=== PATIENT | male | born 1935 | race Caucasian/White ===

== ENCOUNTER 2017-06-10 08:10 | Observation (INO) ==
--- NOTE | 2017-06-10 08:17 | Emergency Department Note ---
Disposition Clinical Impression: Fall, Generalized weakness, Hyperkalemia Disposition: Admitted As Inpatient Condition: Undetermined General Adult HPI - General Chief complaint: ED Chest Pain Stated complaint: Fall,LOCKE, CP Time Seen by Provider: 06/10/17 08:14 - Related Data Home Medications Medication Instructions Recorded Confirmed Allopurinol [Zyloprim] 100 mg PO QAM 09/26/15 06/10/17 Aspirin 81 mg PO QAM 09/26/15 06/10/17 Atorvastatin [Lipitor] 40 mg PO HS 01/09/17 06/10/17 Glimepiride [Amaryl] 4 mg PO DAILY 01/09/17 06/10/17 LevETIRAcetam [Keppra] 500 mg PO BID 01/09/17 06/10/17 Metoprolol [Lopressor] 25 mg PO BID 01/09/17 06/10/17 Citalopram [CeleXA] 20 mg PO DAILY 05/26/17 06/10/17 DULoxetine [Cymbalta] 30 mg PO DAILY 05/26/17 06/10/17 Gabapentin [Neurontin] 100 mg PO DAILY 05/26/17 06/10/17 Lisinopril [Zestril] 20 mg PO DAILY 05/26/17 06/10/17 risperiDONE [RisperDAL] 1 mg PO DAILY 05/26/17 06/10/17 Previous Rx's Medication Instructions Recorded Tamsulosin [Flomax] 0.4 mg PO DAILY #30 capsule 09/29/15 Allergies Allergy/AdvReac Type Severity Reaction Status Date / Time Sulfa (Sulfonamide Allergy Rash Verified 09/26/15 17:31 Antibiotics) morphine AdvReac Vomiting Verified 09/26/15 17:31 Past Medical History - Past Medical History Medical history: Reports: arthritis, atrial fibrillation, cancer, CHF, CVA, diabetes, hypertension, other Surgical history: Reports: cholecystectomy, knee replacement, orthopedic, other , prostatectomy, other Psychiatric history: Reports: no psych history - Social History Smoking Status: Never smoker Smokeless Tobacco Status: No Alcohol use: Reports: none Drug use: Reports: none Course Vital Signs Temperature 97.9 F 06/10/17 08:14 Pulse Rate 73 06/10/17 08:14 Respiratory Rate 18 06/10/17 08:14 Blood Pressure 133/95 06/10/17 08:14 O2 Sat by Pulse Oximetry 96 07/26/17 08:14 Temperature 97.8 F 06/10/17 15:46 Pulse Rate 86 06/10/17 15:46 Respiratory Rate 17 06/10/17 15:46 Blood Pressure 114/78 06/10/17 15:46 O2 Sat by Pulse Oximetry 94 06/10/17 15:46 Oxygen Delivery Oxygen Delivery Room Air Medical Decision Making - Lab Data Result diagrams: 06/10/17 08:33 06/10/17 17:04 Lab Results 06/10/17 06/10/17 06/10/17 Range/Units 08:03 08:33 08:33 WBC 13.0 H (4.3-11.1) K/mcL RBC 4.55 (4.19-5.50) M/mcL Hgb 13.5 (12.9-16.9) g/dL Hct 41.4 (37.5-50.1) % MCV 91.0 (83.0-100.0) fL MCH 29.7 (28.0-33.3) pg MCHC 32.6 (31.6-35.5) g/dL RDW 13.4 (11.5-14.5) % Plt Count 240 (140-400) K/mcL MPV 10.8 (9.4-12.4) fL Immature Gran % 0.2 (0-4) % Seg Neutrophils % 73.9 % Lymphocytes % 16.4 % Monocytes % 7.3 % Eosinophils % 1.9 % Basophils % 0.3 % Neutrophils # 9.6 H (1.6-8.9) K/mcL Lymphocytes # 2.1 (0.6-4.6) K/mcL Monocytes # 1.0 (0.0-1.3) K/mcL Eosinophils # 0.3 (0.0-0.6) K/mcL Basophils # 0.0 (0.0-0.2) K/mcL ESR 12 H (0-10) mm/hr Sodium 134 L (136-145) mEq/L Potassium 5.4 H (3.5-4.5) mEq/L Chloride 102 (98-109) mEq/L Carbon Dioxide 29 (19-29) mEq/L BUN 29 H (8-26) mg/dL Creatinine 1.61 H (0.72-1.25) mg/dL Est GFR ( Amer) 50 L (> 60) Est GFR (Non-Af Amer) 41 L (> 60) BUN/Creatinine Ratio 18 (6-26) Glucose 326 H (70-99) mg/dL Calculated Osmolality 296 (280-300) Uric Acid 5.8 (3.5-7.2) mg/dL Calcium 9.1 (8.6-10.8) mg/dL Total Bilirubin 0.7 (0.2-1.2) mg/dL AST 17 (5-34) Units/L ALT 21 (0-55) Units/L Alkaline Phosphatase 93 (38-126) Units/L Troponin I (0-0.03) ng/mL C-Reactive Protein 4 (Less than 5) mg/L Serum Total Protein 7.0 (6.0-8.3) g/dL Albumin 3.2 L (3.5-5.0) g/dL Globulin 3.8 H (2.4-3.5) g/dL Albumin/Globulin Ratio 0.8 L (1.1-2.2) Urine Color (Yellow) Urine Clarity (Clear) Urine pH (5.0-8.0) pH Units Ur Specific [place] (1.010-1.025) Urine Protein (Neg-Trace) mg/dL Urine Glucose (UA) (Normal) mg/dL Urine Ketones (Negative) mg/dL Urine Blood (Negative) Urine Nitrite (Negative) Urine Bilirubin (Negative) Urine Urobilinogen (Normal) mg/dL Ur Leukocyte Esterase (Negative) Urine Microscopic RBC (0-3) per hpf Urine Microscopic WBC (0-3) per hpf Ur Squamous Epith Cells (None-Few) per lpf Urine Bacteria (None-Few) per hpf Hyaline Casts (None-Few) per lpf Ur Culture Indicated? (NO) 06/10/17 06/10/17 Range/Units 08:33 09:08 WBC (4.3-11.1) K/mcL RBC (4.19-5.50) M/mcL Hgb (12.9-16.9) g/dL Hct (37.5-50.1) % MCV (83.0-100.0) fL MCH (28.0-33.3) pg MCHC (31.6-35.5) g/dL RDW (11.5-14.5) % Plt Count (140-400) K/mcL MPV (9.4-12.4) fL Immature Gran % (0-4) % Seg Neutrophils % % Lymphocytes % % Monocytes % % Eosinophils % % Basophils % % Neutrophils # (1.6-8.9) K/mcL Lymphocytes # (0.6-4.6) K/mcL Monocytes # (0.0-1.3) K/mcL Eosinophils # (0.0-0.6) K/mcL Basophils # (0.0-0.2) K/mcL ESR (0-10) mm/hr Sodium (136-145) mEq/L Potassium (3.5-4.5) mEq/L Chloride (98-109) mEq/L Carbon Dioxide (19-29) mEq/L BUN (8-26) mg/dL Creatinine (0.72-1.25) mg/dL Est GFR ( Amer) (> 60) Est GFR (Non-Af Amer) (> 60) BUN/Creatinine Ratio (6-26) Glucose (70-99) mg/dL Calculated Osmolality (280-300) Uric Acid (3.5-7.2) mg/dL Calcium (8.6-10.8) mg/dL Total Bilirubin (0.2-1.2) mg/dL AST (5-34) Units/L ALT (0-55) Units/L Alkaline Phosphatase (38-126) Units/L Troponin I 0.00 (0-0.03) ng/mL C-Reactive Protein (Less than 5) mg/L Serum Total Protein (6.0-8.3) g/dL Albumin (3.5-5.0) g/dL Globulin (2.4-3.5) g/dL Albumin/Globulin Ratio (1.1-2.2) Urine Color Yellow (Yellow) Urine Clarity Clear (Clear) Urine pH 5.0 (5.0-8.0) pH Units Ur Specific [place] 1.023 (1.010-1.025) Urine Protein 30 H (Neg-Trace) mg/dL Urine Glucose (UA) 250 H (Normal) mg/dL Urine Ketones Negative (Negative) mg/dL Urine Blood Negative (Negative) Urine Nitrite Negative (Negative) Urine Bilirubin Negative (Negative) Urine Urobilinogen Normal (Normal) mg/dL Ur Leukocyte Esterase Negative (Negative) Urine Microscopic RBC 5-15 H (0-3) per hpf Urine Microscopic WBC 0-3 (0-3) per hpf Ur Squamous Epith Cells Few (None-Few) per lpf Urine Bacteria None Seen (None-Few) per hpf Hyaline Casts None Seen (None-Few) per lpf Ur Culture Indicated? NO (NO) Attestation Statement - Attestation Attestation: I examined this patient and my medical decision-making was reviewed with the Resident Physician. I agree with the documented findings, disposition and treatment plan as described except to the extent set forth below. [id number] time provided Information obtained from the patient's spouse. He sustained a mechanical fall. He takes eliquis. 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
--- NOTE | 2017-06-10 08:23 | Emergency Department Note ---
Disposition Clinical Impression: Generalized weakness, Hyperkalemia Fall Qualifiers: Encounter type: initial encounter Qualified Code(s): W19.XXXA - Unspecified fall, initial encounter Disposition: Admitted As Inpatient Condition: Undetermined Referrals: Wilberto Beasley MD [Primary Care Provider] - Forms: ED Satisfaction Letter Time of Disposition: 09:37 Fall HPI - General Chief Complaint: ED Fall Stated Complaint: Fall,LOCKE, CP Time Seen by Provider: 06/10/17 08:14 Source: patient, family Mode of arrival: wheelchair Limitations: altered mental status Nursing Notes Reviewed: Yes Vital Signs Reviewed: Yes - History of Present Illness HPI Narrative: 82-year-old male with unknown medical history with the exception of previous history of atrial fibrillation on aquis, history of gout, history of dementia , arrives [facility] emergency department with concern for fall. The patient's states that she heard a side this morning at roughly 5 :30 the morning and found the patient on the ground attempting to use the bathroom. The patient was cleaned up and put back in bed. At that time the patient was at his baseline. The patient was taken to the kitchen where he ate breakfast without difficulty and then attempted to stand up more and fell. The patient had no LOC and did not strike his head according to the patient's . However the patient was not at his baseline after the second fall. The patient is able to answer some questions correctly and follow all commands correctly but does not exhibit his baseline behavior per the patient's . The patient has no complaints at this time but is unable to explain certain aspects of his medical history. The patient's is a very poor historian and unable to give most of his medical history. Patient recently discharged from rehabilitation facility as well as mental health facility for recent diagnosis of dementia. Pt Subjective Complaint: fall Onset (ago): Just [employer] Fall From: standing, wheelchair, out of bed Fall Witnessed: yes Place Fall Occurred: home Loss of Consciousness: none Prolonged Down Time?: no Context: unknown Severity: none Associated symptoms (after fall): Reports: confusion - Related Data Home Medications Medication Instructions Recorded Confirmed Allopurinol [Zyloprim] 100 mg PO QAM 09/26/15 05/26/17 Aspirin 81 mg PO QAM 09/26/15 05/26/17 Atorvastatin [Lipitor] 40 mg PO HS 01/09/17 05/26/17 Glimepiride [Amaryl] 4 mg PO DAILY 01/09/17 05/26/17 LevETIRAcetam [Keppra] 500 mg PO BID 01/09/17 05/26/17 Metoprolol [Lopressor] 25 mg PO BID 01/09/17 05/26/17 Apixaban [Eliquis] 2.5 mg PO BID 05/26/17 05/26/17 Citalopram [CeleXA] 20 mg PO DAILY 05/26/17 05/26/17 DULoxetine [Cymbalta] 30 mg PO DAILY 05/26/17 05/26/17 Gabapentin [Neurontin] 100 mg PO DAILY 05/26/17 05/26/17 Lisinopril [Zestril] 20 mg PO DAILY 05/26/17 05/26/17 risperiDONE [RisperDAL] 1 mg PO DAILY 05/26/17 05/26/17 Previous Rx's Medication Instructions Recorded Amlodipine [Norvasc] 10 mg PO QAM #90 tablet 09/29/15 Tamsulosin [Flomax] 0.4 mg PO DAILY #30 capsule 09/29/15 HYDROcodone/Acet 10/325 mg [[place] 1 tab PO Q6HR PRN #28 tab 05/26/17 10-325 mg] Allergies Allergy/AdvReac Type Severity Reaction Status Date / Time Sulfa (Sulfonamide Allergy Rash Verified 09/26/15 17:31 Antibiotics) morphine AdvReac Vomiting Verified 09/26/15 17:31 All systems ED: reviewed and negative except as stated. Constitutional: Denies: fever, chills, weakness, weight change Eyes: Denies: eye pain, eye discharge, vision change ENT ED: Denies: ear pain, throat pain, dental pain, hearing loss, epistaxis, congestion, dysphagia Cardiovascular: Denies: chest pain, palpitations, dyspnea on exertion, edema, syncope Respiratory: Denies: cough, dyspnea, wheezes, hemoptysis, stridor Gastrointestinal: Denies: abdominal pain, nausea, vomiting, diarrhea, constipation, hematemesis, melena, hematochezia Genitourinary: Denies: urgency, dysuria, frequency, hematuria Musculoskeletal: Denies: back pain, neck pain, arthralgia, myalgia Integumentary: Denies: rash, abrasion, lesions Neurological: Reports: headache, confusion. Denies: weakness, numbness, paresthesias, abnormal gait, vertigo Fall PMH - Past Medical History Medical history: Reports: arthritis, atrial fibrillation, cancer, CHF, CVA, diabetes, hypertension, other Reports: Other (Dementia) Surgical history: Reports: cholecystectomy, knee replacement, orthopedic, other , prostatectomy, other Psychiatric history: Reports: no psych history - Social History Smoking Status: Never smoker Alcohol use: Reports: none Drug use: Reports: none Physical Exam - General Limitations: altered mental status General appearance: alert, in no apparent distress - Head Head exam: atraumatic, normocephalic, normal inspection - Eye Eye exam: Present: normal appearance, PERRL, EOMI - Neck Neck exam: Present: normal inspection, full ROM, trachea midline - Chest Chest inspection: Present: normal inspection, symmetric chest wall rise - Respiratory Respiratory exam: Present: normal lung sounds bilaterally - Cardiovascular Cardiovascular exam: Present: regular rate, normal rhythm, normal heart sounds - Abdominal Exam Abdominal exam: Present: soft, Non-Tender. Absent: tenderness, distention, guarding, rebound, rigidity - Extremities Exam Extremities exam: Present: normal inspection, full ROM. Absent: tenderness, pedal edema - Neurological Exam Neurological exam: Present: alert, CN II-XII intact - Expanded Neurological Exam Patient oriented to: Present: person Speech: Present: expressive aphasia Cranial nerves: EOM function (II, III, IV, ): Normal, facial sensation (V): Normal, facial palsy (VII): Normal, gag reflex (IX): Normal, spinal accessory function (XI): Normal, tongue deviation (XII): Normal Motor strength - LUE: 4/5 Motor strength - RUE: 4/5 Motor strength - LLE: 4/5 Motor strength - RLE: 4/5 Sensory exam upper extremity: light touch: Normal Sensory exam lower extremity: light touch: Normal Coma Scale Eye Opening: Spontaneous Coma Scale Motor Response: Obeys Commands Coma Scale Verbal Response: Confused Coma Scale Total: 14 - Skin Skin exam: Present: warm, dry, intact, normal color Course - Reevaluation(s) Reevaluation #1: Patient has elevated potassium at 5.4. The patient does have an elevation in his creatinine as well. The patient's potassium has never been this high in the past. We will treat the patient for hyperkalemia to include albuterol and IV Lasix. The patient has no EKG changes consistent with hyperkalemia. We will elect not to give calcium at this time. We will likely admit the patient to the hospital for further care given the patient's multiple falls and weakness. Time: 09:12 Vital Signs Temperature 97.9 F 06/10/17 08:14 Pulse Rate 73 06/10/17 08:14 Respiratory Rate 18 06/10/17 08:14 Blood Pressure 133/95 06/10/17 08:14 O2 Sat by Pulse Oximetry 96 06/10/17 08:14 Temperature 97.9 F 06/10/17 08:14 Pulse Rate 77 06/10/17 09:09 Respiratory Rate 18 06/10/17 09:09 Blood Pressure 153/93 06/10/17 09:09 O2 Sat by Pulse Oximetry 96 06/10/17 09:09 Oxygen Delivery Oxygen Delivery Room Air Fall - MDM Narrative Medical decision making narrative: Patient's imaging demonstrates no acute findings. With the patient's hyperkalemia and symptomatic falls and weakness, we will admit the patient to the hospital for further care. Accepted by the hospitalist, Dr. Iqbal. - Medical Records Medical records reviewed: Yes I reviewed the patient's medical records. - Lab Data Lab results reviewed: Yes I reviewed the patient's lab results. Result diagrams: 06/10/17 08:33 06/10/17 08:33 Lab Results 06/10/17 06/10/17 06/10/17 Range/Units 08:33 08:33 08:33 WBC 13.0 H (4.3-11.1) K/mcL RBC 4.55 (4.19-5.50) M/mcL Hgb 13.5 (12.9-16.9) g/dL Hct 41.4 (37.5-50.1) % MCV 91.0 (83.0-100.0) fL MCH 29.7 (28.0-33.3) pg MCHC 32.6 (31.6-35.5) g/dL RDW 13.4 (11.5-14.5) % Plt Count 240 (140-400) K/mcL MPV 10.8 (9.4-12.4) fL Immature Gran % 0.2 (0-4) % Seg Neutrophils % 73.9 % Lymphocytes % 16.4 % Monocytes % 7.3 % Eosinophils % 1.9 % Basophils % 0.3 % Neutrophils # 9.6 H (1.6-8.9) K/mcL Lymphocytes # 2.1 (0.6-4.6) K/mcL Monocytes # 1.0 (0.0-1.3) K/mcL Eosinophils # 0.3 (0.0-0.6) K/mcL Basophils # 0.0 (0.0-0.2) K/mcL Sodium 134 L (136-145) mEq/L Potassium 5.4 H (3.5-4.5) mEq/L Chloride 102 (98-109) mEq/L Carbon Dioxide 29 (19-29) mEq/L BUN 29 H (8-26) mg/dL Creatinine 1.61 H (0.72-1.25) mg/dL Est GFR ( Amer) 50 L (> 60) Est GFR (Non-Af Amer) 41 L (> 60) BUN/Creatinine Ratio 18 (6-26) Glucose 326 H (70-99) mg/dL Calculated Osmolality 296 (280-300) Calcium 9.1 (8.6-10.8) mg/dL Total Bilirubin 0.7 (0.2-1.2) mg/dL AST 17 (5-34) Units/L ALT 21 (0-55) Units/L Alkaline Phosphatase 93 (38-126) Units/L Troponin I 0.00 (0-0.03) ng/mL Serum Total Protein 7.0 (6.0-8.3) g/dL Albumin 3.2 L (3.5-5.0) g/dL Globulin 3.8 H (2.4-3.5) g/dL Albumin/Globulin Ratio 0.8 L (1.1-2.2) Urine Color (Yellow) Urine Clarity (Clear) Urine pH (5.0-8.0) pH Units Ur Specific [place] (1.010-1.025) Urine Protein (Neg-Trace) mg/dL Urine Glucose (UA) (Normal) mg/dL Urine Ketones (Negative) mg/dL Urine Blood (Negative) Urine Nitrite (Negative) Urine Bilirubin (Negative) Urine Urobilinogen (Normal) mg/dL Ur Leukocyte Esterase (Negative) Urine Microscopic RBC (0-3) per hpf Urine Microscopic WBC (0-3) per hpf Ur Squamous Epith Cells (None-Few) per lpf Urine Bacteria (None-Few) per hpf Hyaline Casts (None-Few) per lpf Ur Culture Indicated? (NO) 06/10/17 Range/Units 09:08 WBC (4.3-11.1) K/mcL RBC (4.19-5.50) M/mcL Hgb (12.9-16.9) g/dL Hct (37.5-50.1) % MCV (83.0-100.0) fL MCH (28.0-33.3) pg MCHC (31.6-35.5) g/dL RDW (11.5-14.5) % Plt Count (140-400) K/mcL MPV (9.4-12.4) fL Immature Gran % (0-4) % Seg Neutrophils % % Lymphocytes % % Monocytes % % Eosinophils % % Basophils % % Neutrophils # (1.6-8.9) K/mcL Lymphocytes # (0.6-4.6) K/mcL Monocytes # (0.0-1.3) K/mcL Eosinophils # (0.0-0.6) K/mcL Basophils # (0.0-0.2) K/mcL Sodium (136-145) mEq/L Potassium (3.5-4.5) mEq/L Chloride (98-109) mEq/L Carbon Dioxide (19-29) mEq/L BUN (8-26) mg/dL Creatinine (0.72-1.25) mg/dL Est GFR ( Amer) (> 60) Est GFR (Non-Af Amer) (> 60) BUN/Creatinine Ratio (6-26) Glucose (70-99) mg/dL Calculated Osmolality (280-300) Calcium (8.6-10.8) mg/dL Total Bilirubin (0.2-1.2) mg/dL AST (5-34) Units/L ALT (0-55) Units/L Alkaline Phosphatase (38-126) Units/L Troponin I (0-0.03) ng/mL Serum Total Protein (6.0-8.3) g/dL Albumin (3.5-5.0) g/dL Globulin (2.4-3.5) g/dL Albumin/Globulin Ratio (1.1-2.2) Urine Color Yellow (Yellow) Urine Clarity Clear (Clear) Urine pH 5.0 (5.0-8.0) pH Units Ur Specific [place] 1.023 (1.010-1.025) Urine Protein 30 H (Neg-Trace) mg/dL Urine Glucose (UA) 250 H (Normal) mg/dL Urine Ketones Negative (Negative) mg/dL Urine Blood Negative (Negative) Urine Nitrite Negative (Negative) Urine Bilirubin Negative (Negative) Urine Urobilinogen Normal (Normal) mg/dL Ur Leukocyte Esterase Negative (Negative) Urine Microscopic RBC 5-15 H (0-3) per hpf Urine Microscopic WBC 0-3 (0-3) per hpf Ur Squamous Epith Cells Few (None-Few) per lpf Urine Bacteria None Seen (None-Few) per hpf Hyaline Casts None Seen (None-Few) per lpf Ur Culture Indicated? NO (NO) - Radiology Data Radiology results reviewed: Yes I reviewed the patient's radiology results. - EKG Data EKG attestation: Yes I reviewed and interpreted this EKG. EKG results narrative: Heart rate 70 bpm. QRS 101 ms. Normal axis. Atrial fibrillation. No ST elevation or ST depression noted. EKG similar appearance to previous EKG. EKG from 03/20/2017 summary appearance. No acute changes noted.
[2017-06-10 08:42] LABS: Basophils % 0.3 %; Eosinophils # 0.3 K/mcL (0.0-0.6); Eosinophils % 1.9 %; Hematocrit 41.4 % (37.5-50.1); Hemoglobin 13.5 g/dL (12.9-16.9); Immature Granulocytes % 0.2 % (0-4); Lymphocytes # 2.1 K/mcL (0.6-4.6); Lymphocytes % 16.4 %; Mean Corpuscular HGB Conc 32.6 g/dL (31.6-35.5); Mean Corpuscular Hemoglobin 29.7 pg (28.0-33.3); Mean Platelet Volume 10.8 fL (9.4-12.4); Monocytes % 7.3 %; Neutrophils # 9.6 K/mcL (1.6-8.9); Platelet Count 240 K/mcL (140-400); Red Blood Count 4.55 M/mcL (4.19-5.50); Red Cell Distribution Width 13.4 % (11.5-14.5); Segmented Neutrophils % 73.9 %
[2017-06-10 08:55] LABS: Albumin 3.2 g/dL (3.5-5.0); Albumin/Globulin Ratio 0.8 (1.1-2.2); Bilirubin,Total 0.7 mg/dL (0.2-1.2); Calcium 9.1 mg/dL (8.6-10.8); Globulin 3.8 g/dL (2.4-3.5); Potassium 5.4 mEq/L (3.5-4.5)
[2017-06-10] MEDS ORDERED: Albuterol Neb 1.25 MG/3 ML VIAL IH ONE (09:09)
[2017-06-10] MEDS ORDERED: Furosemide 40 MG/4 ML VIAL IVP ONE (09:09)
[2017-06-10 09:14] LABS: Bilirubin,Urine Negative (Negative); Blood,Urine Negative (Negative); Clarity,Urine Clear (Clear); Color,Urine Yellow (Yellow); Glucose,Urine (UA) 250 mg/dL (Normal); Ketones,Urine Negative (Negative); Leukocyte Esterase,Urine Negative (Negative); Nitrite,Urine Negative (Negative); Protein,Urine 30 mg/dL (Neg-Trace); Specific Gravity,Urine 1.023 (1.010-1.025); Urobilinogen,Urine Normal (Normal)
[2017-06-10] MEDS ORDERED: Albuterol 2.5 MG/3 ML NEBULIZER IH ONE (09:15)
[2017-06-10 09:17] LABS: Bacteria,Urine None Seen per hpf (None-Few); Hyaline Casts,Urine None Seen per lpf (None-Few); Squamous Epithelial Cell,Urine Few per lpf (None-Few); WBC,Urine 0-3 per hpf (0-3)
[2017-06-10] MEDS ORDERED: Albuterol 2.5 MG/3 ML NEBULIZER ONE (09:18)
[2017-06-10] MEDS ORDERED: *HR* LORazepam 2 MG/ML VIAL IVP ONE (09:41)
[2017-06-10] MEDS ORDERED: Naloxone 0.4 MG/ML INJ IVP PRN (10:05)
[2017-06-10] MEDS ORDERED: *HR* OxyCODONE Immed Rel 5 MG TABLET PO PRN (10:05)
[2017-06-10] MEDS ORDERED: Acetaminophen 325 MG TABLET PO PRN (10:05)
[2017-06-10] MEDS ORDERED: Ondansetron 4 MG/2 ML VIAL IVP PRN (10:05)
[2017-06-10] MEDS ORDERED: *HR* FentaNYL (PF) 100 MCG/2 ML VIAL IVP ONE (10:08)
[2017-06-10] MEDS ORDERED: D5% in Water 1,000 ML IVC PRN (10:12)
[2017-06-10] MEDS ORDERED: *HR* Dextrose 50 % in Water (Syg) 50 ML SYRINGE IVP PRN (10:12)
[2017-06-10] MEDS ORDERED: Dextrose Gel 15 GM PO PRN ×2 (10:12)
--- NOTE | 2017-06-10 10:18 | Internal Med History&Physical ---
Date of Encounter: 06/10/17 Time of Encounter: 10:15 Assessment and Plan (1) Fall Current visit: Yes Status: Acute Recurrent falls, consider possible orthostatic hypotension Check orthostatics, consider holding Cymbalta and Flomax as both can cause orthostatic hypotension Fall precautions, telemetry PTOT evaluation Omeprazole for GI prophylaxis and sequential compression devices for DVT prophylaxis. Patient will be admitted for observation. He is a DNR CC arrest DNI. Time spent on this admission 40 minutes. High risk for falling Qualifiers: Encounter type: initial encounter Qualified Code(s): W19.XXXA - Unspecified fall, initial encounter (2) Chronic kidney disease, stage III (moderate) Current visit: Yes Status: Acute Stable Consider holding lisinopril if his creatinine progresses Gentle hydration (3) Dementia Current visit: Yes Status: Acute Qualifiers: Dementia type: unspecified type Dementia behavioral disturbance: without behavioral disturbance Qualified Code(s): F03.90 - Unspecified dementia without behavioral disturbance (4) Generalized weakness Current visit: Yes Status: Acute (5) Hyperkalemia Current visit: Yes Status: Acute Consider calcium gluconate and Kayexalate if progressing Check potassium later this afternoon (6) 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) Current visit: No Status: Acute Qualifiers: Intracerebral hemorrhage etiology: traumatic Encounter type: subsequent encounter Laterality: left Loss of consciousness presence/duration: with LOC of unspecified duration Qualified Code(s): S06.359D - Traumatic hemorrhage of left cerebrum with loss of consciousness of unspecified duration, subsequent encounter (7) Diabetes mellitus type 2 with complications, uncontrolled Current visit: No Status: Acute Continue insulin sliding scale Qualifiers: Diabetes mellitus snf insulin use: without snf use Qualified Code(s): E11.8 - Type 2 diabetes mellitus with unspecified complications; E11.65 - Type 2 diabetes mellitus with hyperglycemia (8) Aphasia Current visit: Yes Status: Acute Secondary to hemorrhagic CVA Internal Medicine - H&P: HPI Chief complaint: recurrent falls and confusion Admitted From: Emergency Dept History of present illness: Mr. 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 The patient was brought to the emergency room after his found him earlier today at home around 5:30 AM on the floor after he fell possibly hitting his head. The patient has aphasia and is a very poor historian, apparently he fell again after trying to stand up the kitchen. He cannot tell whether she was dizzy or not. He is taking Cymbalta and Flomax which both can cause orthostatic hypotension. His potassium was found to be 5.4 white blood cell count 13, UA is normal although his says they have been having some urinary incontinence, no diarrhea or bowel incontinence. CAT scan of the head did not show any intracranial hemorrhage. Chest x-ray shows only cardiomegaly. The patient was given Lasix and albuterol at the emergency room the collateral bring down his potassium. Glucose is 326, he does not take insulin at home Past Med Surg Social Fam HX - Past Medical History Medical history: arthritis, atrial fibrillation (Apparently not on anticoagulation, used to take Eliquis ), cancer (Skin cancer ), CHF (Diastolic CHF), CVA (Hemorrhagic CVA in December 2016 with residual aphasia), diabetes, hypertension, other (BPH, gout, dementia, CAD, chronic kidney disease stage III , COPD, neuropathy) Psychiatric history: no psych history - Past Surgical History Surgical History: cholecystectomy, knee replacement, orthopedic, other, prostatectomy, other (Recent bilateral great toe surgery, TURP, knee surgery in the past) - Social History Smoking Status: Never smoker Smokeless Tobacco Status: No Alcohol use: none Drug use: none - Additional Family History Additional family history: According to prior records. Daughter with brain cancer. Father with peripheral vascular disease and diabetes, mother with peripheral vascular disease and diabetes as well Internal Medicine - H&P: Meds Allopurinol [Zyloprim] 100 mg PO QAM 09/26/15 [History] Aspirin 81 mg PO QAM 09/26/15 [History] Tamsulosin [Flomax] 0.4 mg PO DAILY #30 capsule 09/29/15 [Rx] Atorvastatin [Lipitor] 40 mg PO HS 01/09/17 [History] Glimepiride [Amaryl] 4 mg PO DAILY 01/09/17 [History] LevETIRAcetam [Keppra] 500 mg PO BID 01/09/17 [History] Metoprolol [Lopressor] 25 mg PO BID 01/09/17 [History] Citalopram [CeleXA] 20 mg PO DAILY 05/26/17 [History] DULoxetine [Cymbalta] 30 mg PO DAILY 05/26/17 [History] Gabapentin [Neurontin] 100 mg PO DAILY 05/26/17 [History] Lisinopril [Zestril] 20 mg PO DAILY 05/26/17 [History] risperiDONE [RisperDAL] 1 mg PO DAILY 05/26/17 [History] Allergies Sulfa (Sulfonamide Antibiotics) Allergy (Verified 09/26/15 17:31) Rash morphine Adverse Reaction (Verified 09/26/15 17:31) Vomiting All Systems PM: A 10-system review of systems was performed and is negative for pertinent findings except as documented above in the HPI. Review of systems: Denies chest pain or pain anywhere else, unable to complete review of systems due to patient's dementia and confusion/aphasia - Constitutional Vitals: Temp Pulse Resp BP Pulse Ox 97.9 F 77 0 0/0 96 06/10/17 08:14 06/10/17 09:09 06/10/17 10:11 06/10/17 10:11 06/10/17 09:09 General appearance: Present: A&O X 1 - Head Head exam: Present: atraumatic, normocephalic - Eye Eye exam: Present: PERRL, conjuntiva pink, sclera anicteric Pupils: Present: PERRL - Neck Neck exam general surgery: Present: supple, trachea midline. Absent: lymphadenopathy - Respiratory Respiratory exam: Present: decreased breath sounds, CTAB. Absent: accessory muscle use, rales, rhonchi, wheezes - Cardiovascular Cardiovascular exam: Present: irregular rhythm, RRR, +S1, +S2. Absent: diastolic murmur, gallop, rubs, systolic murmur - GI/Abdominal GI/Abdominal exam: Present: distended, normal bowel sounds, soft, no peritoneal signs. Absent: tenderness - Extremities Exam Extremities exam: Present: warm, radial pulses palpable and symetrical. Absent : calf tenderness, cyanotic, pedal edema - Neurological Exam Neurological exam: Present: CN II-XII intact, no focal deficits. Absent: oriented X3, pronater drift, facial droop, speech deficit - Skin Skin exam: Present: dry. Absent: intact (Surgical Wounds on both great toes appear healing properly, no signs of infection . Sutures are still present ) Internal Med - H&P Results - Labs CBC & Chem 7: 06/10/17 08:33 06/10/17 08:33
[2017-06-10] MEDS: Insulin LISPRO 300 UNITS/3 ML VIAL SQ SCH ×3 (12:22→20:37)
[2017-06-10] MEDS: 0.9 % Sodium Chloride 1,000 ML IVC SCH (12:23)
[2017-06-10] MEDS: ceFAZolin 1,000 MG in D5% in Water (Mini-Bag+) 100 ML IVPB SCH ×2 (14:50→14:56)
[2017-06-10 16:24] LABS: Uric Acid 5.8 mg/dL (3.5-7.2)
--- NOTE | 2017-06-10 16:58 | Podiatry Consult Note ---
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 I have discussed these results with Dr. velasquez and he is agreeable. There is no clinical indication of infection noted to surgical lines bilaterally The presence of gouty changes remains to bilateral great toes Sutures were removed at bedside today, patient tolerated well, there were no complications. Suture line was painted with Betadine. Nurse to place Band-Aid for protection. Patient may resume protective weightbearing as tolerated. Please continue strict glucose control to assist in healing and prevent further complications. Continue medical treatment for altered mental status Will to follow while inpatient for any changes. Patient will need to follow up in clinic one week after discharge. Qualifiers: Gout site: unspecified site Gout etiology: unspecified cause Chronicity: chronic Presence of tophus: with tophus Qualified Code(s): M1A.9XX1 - Chronic gout, unspecified, with tophus (tophi) (2) Diabetes mellitus type 2 with complications, uncontrolled Current visit: No Status: Acute Qualifiers: Diabetes mellitus care home insulin use: without earth observations chief scientist use Qualified Code(s): E11.8 - Type 2 diabetes mellitus with unspecified complications; E11.65 - Type 2 diabetes mellitus with hyperglycemia History of Present Illness HPI: Mr. Abdul is a 82 year old male with known medical hx of CVA, dementia, HTN, CKD stage III, gout and global aphasia. Patient was brought to [facility] after 2 falls at home. Patient was brought to hospital by his who stated that patient was not back to baseline after second fall. Patient has known history of dementia and is a poor historian. There is no coherent conversation while at bedside. Patient continues to attempt to get out of bed after reorientation attempts and is trying to take catheter apart. Patient does follow simple commands but quickly forgets. Podiatry team has been consulted to follow up on recent surgical procedure. 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 Patient was seen last week in clinic and was noted to be doing well with a mild amount of swelling to surgical lines. Upon inspection today, there is no acute appearance of infection. There is a slight increase in swelling of left IP joint but otherwise unremarkable. There is no gross edema, erythema or drainage. There is no warmth. Patient is unable to report if he has any pain. There remains a presistent appearance of gouty tophi more prominent in the left great toe. it has been 2 weeks since surgery and sutures will be removed today at bedside. Patient is noted to have a WBC of 13, ESR of 12, CRP 4 and uric acid 5.6. Podiatry was consulted regarding concerns of possible surgical infection. Xray Foot X-Ray 06/10/17 13:06 IMPRESSION: 1. Erosion associated with the distal 1st metatarsal, again suggesting gout and not significantly changed. 2. Degenerative changes are stable in the interphalangeal joint of the great toe. 3. Otherwise, stable appearing foot. D/ / 06/10/2017 13:40:49 rTevin Weber MD / [facility] Interpreting Provider: Trevin Weber MD Past Med Surg Social Fam HX - Past Medical History Medical history: arthritis, atrial fibrillation, cancer, CHF, CVA, diabetes, hypertension, other Psychiatric history: no psych history - Past Surgical History Surgical History: cholecystectomy, knee replacement, orthopedic, other, prostatectomy, other - Social History Smoking Status: Never smoker Smokeless Tobacco Status: No Alcohol use: none Drug use: none Medications and Allergies Allopurinol [Zyloprim] 100 mg PO QAM 09/26/15 [History] Aspirin 81 mg PO QAM 09/26/15 [History] Tamsulosin [Flomax] 0.4 mg PO DAILY #30 capsule 09/29/15 [Rx] Atorvastatin [Lipitor] 40 mg PO HS 01/09/17 [History] Glimepiride [Amaryl] 4 mg PO DAILY 01/09/17 [History] LevETIRAcetam [Keppra] 500 mg PO BID 01/09/17 [History] Metoprolol [Lopressor] 25 mg PO BID 01/09/17 [History] Citalopram [CeleXA] 20 mg PO DAILY 05/26/17 [History] DULoxetine [Cymbalta] 30 mg PO DAILY 05/26/17 [History] Gabapentin [Neurontin] 100 mg PO DAILY 05/26/17 [History] Lisinopril [Zestril] 20 mg PO DAILY 05/26/17 [History] risperiDONE [RisperDAL] 1 mg PO DAILY 05/26/17 [History] Allergies Sulfa (Sulfonamide Antibiotics) Allergy (Verified 09/26/15 17:31) Rash morphine Adverse Reaction (Verified 09/26/15 17:31) Vomiting All Systems Reviewed: A 10-system review of systems was performed and is negative for pertinent findings except as documented above in the HPI. Physical Exam - Constitutional Vitals: Temp Pulse Resp BP Pulse Ox 97.8 F 86 17 114/78 94 06/10/17 15:46 06/10/17 15:46 06/10/17 15:46 06/10/17 15:46 06/10/17 15:46 Exam: Patient is awake and alert but there is no coherent conversation. Patient follows simple commands but quickly forgets. - Extremities Exam Extremities exam: Present: normal capillary refill, normal inspection Additional comments: Pulses palpable DP/PT Cap refill < 3 seconds Muscle strength 5/5 and equal bilaterally Sensation intact to light touch Suture lines intact with no clinical signs of infection Gouty changes remain to bilateral great toes - Expanded Lower Extremities Exam 1 - Surgical incision- sutures removed at this time. There is no appearance of infection. Very minimal erythema. No edema. No drainage. No warmth. No reported tenderness with palpation 2 - Surgical area- sutures removed at this time. Slight increase in edema possibly related to acute gout attack. There remains persistent presence of gouty tophi. Minimal edema. Minimal erythema. No warmth drainage or tenderness with palpation. No appearance of acute infection Results - Labs Result Diagrams: 06/11/17 04:27 06/11/17 04:27 Labs: Abnormal lab results WBC 13.0 K/mcL (4.3-11.1) H 06/10/17 08:33 Neutrophils # 9.6 K/mcL (1.6-8.9) H 06/10/17 08:33 ESR 12 mm/hr (0-10) H 06/10/17 08:03 Sodium 134 mEq/L (136-145) L 06/10/17 08:33 Potassium 5.4 mEq/L (3.5-4.5) H 06/10/17 08:33 BUN 29 mg/dL (8-26) H 06/10/17 08:33 Creatinine 1.61 mg/dL (0.72-1.25) H 06/10/17 08:33 Est GFR ( Amer) 50 (> 60) L 06/10/17 08:33 Est GFR (Non-Af Amer) 41 (> 60) L 06/10/17 08:33 Glucose 326 mg/dL (70-99) H 06/10/17 08:33 POC Glucose 150 (58-89) H 06/10/17 15:50 Albumin 3.2 g/dL (3.5-5.0) L 06/10/17 08:33 Globulin 3.8 g/dL (2.4-3.5) H 06/10/17 08:33 Albumin/Globulin Ratio 0.8 (1.1-2.2) L 06/10/17 08:33 Urine Protein 30 mg/dL (Neg-Trace) H 06/10/17 09:08 Urine Glucose (UA) 250 mg/dL (Normal) H 06/10/17 09:08 Urine Microscopic RBC 5-15 per hpf (0-3) H 06/10/17 09:08 All other labs normal. Consult Discharge Plan - Plan Referrals: Wilberto Beasley MD [Primary Care Provider] - 06/18/17 11:45 am
[2017-06-10] MEDS: levETIRAcetam 250 MG TABLET PO SCH (20:18)
[2017-06-11] MEDS: ceFAZolin 1,000 MG in D5% in Water (Mini-Bag+) 100 ML IVPB SCH ×2 (00:17→07:32)
[2017-06-11 05:03] LABS: Hematocrit 39.1 % (37.5-50.1); Mean Corpuscular HGB Conc 33.2 g/dL (31.6-35.5); Mean Corpuscular Hemoglobin 29.6 pg (28.0-33.3); Mean Corpuscular Volume 89.1 fL (83.0-100.0); Mean Platelet Volume 10.9 fL (9.4-12.4); Platelet Count 221 K/mcL (140-400); Red Blood Count 4.39 M/mcL (4.19-5.50); Red Cell Distribution Width 13.4 % (11.5-14.5)
[2017-06-11 05:18] LABS: Calcium 9.2 mg/dL (8.6-10.8); Potassium 4.5 mEq/L (3.5-4.5)
[2017-06-11] MEDS: 0.9 % Sodium Chloride 1,000 ML IVC SCH (05:41)
--- NOTE | 2017-06-11 06:25 | Electrocardiograph Report ---
[employer] Test Date: 2017-06-10 Pat Name: Nataliia Abdul Department: 105 Room: 3A11 Gender: M Canvas Baster [place]: MSC : [id number] Requested By: Eder Sanz Order Number: [id number] Miguel Angel MD: Eder Thomas DO Measurements Intervals [place] Rate: 70 P: ID: 0 QRS: -15 QRSD: 101 T: 12 QT: 403 QTc: 423 Interpretive Statements ATRIAL FIBRILLATION MINIMAL VOLTAGE CRITERIA FOR LVH, CONSIDER NORMAL VARIANT [MEETS CRITERIA IN ONE OF: R(aVL), S(V1), R(V5), R(V5/V6)+S(V1)] INFERIOR MYOCARDIAL INFARCTION [40+ ms Q WAVE AND/OR ST/T ABNORMALITY IN II/aVF], PROBABLY OLD Electronically Signed On 06-11-2017 6:24:21 EDT by Eder Thomas DO
[2017-06-11] MEDS: risperiDONE 1 MG TABLET PO SCH (07:31)
[2017-06-11] MEDS: *HR* Glimepiride 4 MG TABLET PO SCH (07:31)
[2017-06-11] MEDS: Gabapentin 100 MG CAPSULE PO SCH (07:31)
[2017-06-11] MEDS: levETIRAcetam 250 MG TABLET PO SCH ×2 (07:32→21:47)
[2017-06-11] MEDS: Insulin LISPRO 300 UNITS/3 ML VIAL SQ SCH ×3 (08:26→21:48)
--- NOTE | 2017-06-11 08:43 | Internal Med Progress Note ---
Date of Encounter: 06/11/17 Time of Encounter: 08:40 - Assessment and plan (1) Fall Current Visit: Yes Status: Acute Assessment and plan: Likely related to orthostatic hypotension from dehydration and multiple medications that could cause hypotension. Hold Cymbalta, diuretics and BEN inhibitor for now and continue to monitor closely. IV hydration. Physical and occupational therapy evaluation noted, recommend home health with 24-hour supervision. Family is interested in caring for the patient at home. Qualifiers: Encounter type: initial encounter Qualified Code(s): W19.XXXA - Unspecified fall, initial encounter (2) Hyperkalemia Current Visit: Yes Status: Resolved Assessment and plan: Likely related to diet and underlying chronic kidney disease, currently resolved. (3) Weakness Current Visit: Yes Status: Acute Assessment and plan: Likely related to orthostatic hypotension. Plan as above. (4) Diabetes mellitus Current Visit: Yes Status: Chronic Assessment and plan: Continue Accu-Chek blood glucose monitoring with sliding scale insulin. Blood sugars noted to be fluctuating but will hold off on basal insulin at this time to avoid hypoglycemia. Diabetic diet. Qualifiers: Diabetes mellitus type: type 2 Diabetes mellitus complication status: with kidney complications Diabetes mellitus complication detail: with chronic kidney disease Diabetes mellitus usp insulin use: without usp use Chronic kidney disease stage: stage 3 (moderate) Qualified Code(s): E11.22 - Type 2 diabetes mellitus with diabetic chronic kidney disease; N18.3 - Chronic kidney disease, stage 3 (moderate) (5) 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) Current Visit: Yes Status: Chronic Assessment and plan: Noted to have hematologic stroke in the recent past. Continue to hold anticoagulation. Continue Keppra for seizure prophylaxis. Qualifiers: Intracerebral hemorrhage etiology: traumatic Encounter type: subsequent encounter Laterality: left Loss of consciousness presence/duration: with LOC of unspecified duration Qualified Code(s): S06.359D - Traumatic hemorrhage of left cerebrum with loss of consciousness of unspecified duration, subsequent encounter (6) Chronic kidney disease, stage III (moderate) Current Visit: Yes Status: Chronic Assessment and plan: Serum creatinine noted to be stable, at baseline. (7) Dementia Current Visit: Yes Status: Chronic Assessment and plan: Noted to have confusion and disorientation at baseline. This could be related to his recent hematologic stroke, unclear etiology. Continue outpatient follow- up with primary care provider. Fall precautions and supportive care. 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 Discontinue antibiotics. Podiatry consult appreciated. Continue local wound care per podiatry recommendations. Continue allopurinol. Qualifiers: Gout site: unspecified site Gout etiology: unspecified cause Chronicity: chronic Presence of tophus: with tophus Qualified Code(s): M1A.9XX1 - Chronic gout, unspecified, with tophus (tophi) - Subjective Interval history: Patient is very confused, cannot provide history. Not noted to be in pain. - Constitutional Vitals: Temp Pulse Resp BP Pulse Ox 98.4 F 72 16 148/90 96 06/11/17 07:06 06/11/17 07:06 06/11/17 07:06 06/11/17 07:06 06/11/17 07:06 General appearance: Present: A&O X 1. Absent: answers questions appropriately - Respiratory Respiratory exam: Present: CTAB. Absent: accessory muscle use, rales, rhonchi, wheezes - Cardiovascular Cardiovascular exam: Present: irregular rhythm, +S1, +S2. Absent: diastolic murmur, gallop, rubs, systolic murmur - GI/Abdominal GI/Abdominal exam: Present: normal bowel sounds, soft, no peritoneal signs. Absent: distended, tenderness - Extremities Exam Extremities exam: Present: full ROM, warm, radial pulses palpable and symetrical. Absent: calf tenderness, cyanotic, pedal edema Additional comments: B/L great toes s/p removal of gout tophi, incisions healed well, no e/o- infection or discharge - Neurological Exam Neurological exam: Present: altered, CN II-XII intact, no focal deficits. Absent: pronater drift, facial droop, speech deficit Internal Medicine: Result - Labs CBC & Chem 7: 06/11/17 04:27 06/11/17 04:27 Labs: Short CBC 06/11/17 Range/Units 04:27 WBC 12.0 H (4.3-11.1) K/mcL Hgb 13.0 (12.9-16.9) g/dL Hct 39.1 (37.5-50.1) % Plt Count 221 (140-400) K/mcL BMP 06/10/17 06/11/17 17:04 04:27 Sodium 140 Potassium 4.9 H 4.5 Chloride 104 Carbon Dioxide 31 H BUN 29 H Creatinine 1.52 H Glucose 129 H Calcium 9.2 - Impressions Impressions Foot X-Ray 06/10/17 13:06 IMPRESSION: 1. Erosion associated with the distal 1st metatarsal, again suggesting gout and not significantly changed. 2. Degenerative changes are stable in the interphalangeal joint of the great toe. 3. Otherwise, stable appearing foot. D/ / 06/10/2017 13:40:49 [facility]Tevin Weber MD / [facility] Interpreting Provider: Trevin Weber MD Foot X-Ray 06/10/17 13:06 IMPRESSION: Postsurgical changes from 1st metatarsal partial resection osteotomy in arthrodesis of the 1st MTP joint. Lucency of the 1st proximal phalanx, along the anterior aspect of the hardware has progressed since the prior examination. Findings may reflect hardware failure or infection. D/ / 06/10/2017 13:33:35 Shania Cordova MD / [facility] Interpreting Provider: Shania Cordova MD Consult Discharge Plan - Plan Referrals: Wilberto Beasley MD [Primary Care Provider] - 06/18/17 11:45 am
[2017-06-11] MEDS ORDERED: Lisinopril 20 MG TABLET PO SCH (09:00)
[2017-06-11] MEDS ORDERED: Aspirin 325 MG TABLET PO SCH (09:00)
[2017-06-11] MEDS: Aspirin Enteric Coated 81 MG Tablet PO SCH (13:48)
[2017-06-12 04:37] LABS: Basophils % 0.3 %; Eosinophils # 0.3 K/mcL (0.0-0.6); Eosinophils % 2.3 %; Hematocrit 34.9 % (37.5-50.1); Hemoglobin 11.8 g/dL (12.9-16.9); Immature Granulocytes % 0.3 % (0-4); Lymphocytes # 2.4 K/mcL (0.6-4.6); Lymphocytes % 20.7 %; Mean Corpuscular HGB Conc 33.8 g/dL (31.6-35.5); Mean Corpuscular Hemoglobin 30.6 pg (28.0-33.3); Mean Corpuscular Volume 90.6 fL (83.0-100.0); Monocytes # 0.9 K/mcL (0.0-1.3); Monocytes % 7.9 %; Platelet Count 202 K/mcL (140-400); Red Blood Count 3.85 M/mcL (4.19-5.50); Red Cell Distribution Width 13.6 % (11.5-14.5); Segmented Neutrophils % 68.5 %
[2017-06-12 04:52] LABS: Calcium 8.4 mg/dL (8.6-10.8); Potassium 4.6 mEq/L (3.5-4.5)
[2017-06-12 06:35] VITALS: BP 125/69
[2017-06-12] MEDS: risperiDONE 1 MG TABLET PO SCH (08:15)
[2017-06-12] MEDS: levETIRAcetam 250 MG TABLET PO SCH (08:16)
[2017-06-12] MEDS: Aspirin Enteric Coated 81 MG Tablet PO SCH (08:16)
[2017-06-12] MEDS: Gabapentin 100 MG CAPSULE PO SCH (08:16)
[2017-06-12] MEDS: *HR* Glimepiride 4 MG TABLET PO SCH (08:16)
[2017-06-12] MEDS: Insulin LISPRO 300 UNITS/3 ML VIAL SQ SCH (08:17)
--- NOTE | 2017-06-12 10:04 | Discharge Summary ---
Date of Encounter: 06/12/17 Time of Encounter: 10:01 - Discharge Diagnosis (1) Fall Priority: Primary Status: Acute Qualifiers: Encounter type: initial encounter Qualified Code(s): W19.XXXA - Unspecified fall, initial encounter (2) Hyperkalemia Priority: Primary Status: Resolved (3) Weakness Priority: Primary Status: Acute (4) Diabetes mellitus Priority: Secondary Status: Chronic Qualifiers: Diabetes mellitus type: type 2 Diabetes mellitus complication status: with kidney complications Diabetes mellitus complication detail: with chronic kidney disease Diabetes mellitus bed bug exterminator insulin use: without custodial use Chronic kidney disease stage: stage 3 (moderate) Qualified Code(s): E11.22 - Type 2 diabetes mellitus with diabetic chronic kidney disease; N18.3 - Chronic kidney disease, stage 3 (moderate) (5) 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) Priority: Secondary Status: Chronic Qualifiers: Intracerebral hemorrhage etiology: traumatic Encounter type: subsequent encounter Laterality: left Loss of consciousness presence/duration: with LOC of unspecified duration Qualified Code(s): S06.359D - Traumatic hemorrhage of left cerebrum with loss of consciousness of unspecified duration, subsequent encounter (6) Chronic kidney disease, stage III (moderate) Priority: Secondary Status: Chronic (7) Dementia Priority: Secondary Status: Chronic Qualifiers: Dementia type: unspecified type Dementia behavioral disturbance: without behavioral disturbance Qualified Code(s): F03.90 - Unspecified dementia without behavioral disturbance (8) Gout Priority: Secondary Status: Chronic Qualifiers: Gout site: unspecified site Gout etiology: unspecified cause Chronicity: chronic Presence of tophus: with tophus Qualified Code(s): M1A.9XX1 - Chronic gout, unspecified, with tophus (tophi) - Discharge Medications Home Medications: Allopurinol [Zyloprim] 100 mg PO QAM 09/26/15 [History] Aspirin 81 mg PO QAM 09/26/15 [History] Tamsulosin [Flomax] 0.4 mg PO DAILY #30 capsule 09/29/15 [Rx] Atorvastatin [Lipitor] 40 mg PO HS 01/09/17 [History] Glimepiride [Amaryl] 4 mg PO DAILY 01/09/17 [History] LevETIRAcetam [Keppra] 500 mg PO BID 01/09/17 [History] Metoprolol [Lopressor] 25 mg PO BID 01/09/17 [History] Citalopram [CeleXA] 20 mg PO DAILY 05/26/17 [History] Gabapentin [Neurontin] 100 mg PO DAILY 05/26/17 [History] risperiDONE [RisperDAL] 1 mg PO DAILY 05/26/17 [History] Allergies/Adverse Reactions: Allergies Sulfa (Sulfonamide Antibiotics) Allergy (Verified 09/26/15 17:31) Rash morphine Adverse Reaction (Verified 09/26/15 17:31) Vomiting Date of admission: 06/10/17 09:52 Primary care physician: Wilberto Beasley MD Consults: 06/10/17 10:27 Consult to Occupational Therapy [CONS] Routine Comment: Evaluate, develop and implement POC Reason for Consult: eval falling Consult to Physical Therapy [CONS] Routine Comment: Evaluate, develop and implement POC Reason for Consult: eval falling Consult to Incident Commander [CONS] Routine Reason for SW Consult: placement 06/10/17 10:44 Consult to Nutrition [CONS] Routine Comment: Consulting Provider: NUTRITION Reason for Dietary Consult: MST Score 06/10/17 13:09 Consult to Podiatry [CONS] Routine Consulting Provider: [facility] Reason for Consult: toe surgery, posible infection? Call Completed: Yes Discharging clinician: Marilyn Fontana Anticipated date of discharge: 06/12/17 - Patient Status Disposition: Home Health Service Condition: Fair Functional capacity at discharge: independent ambulation Overall status at discharge: patient is progressing back to baseline - Discharge Instructions Instructions: Fall Prevention (DC) Follow Up With: Wilberto Beasley MD [Primary Care Provider] - 06/18/17 11:45 am - Diet and Activity Activity: resume usual activities as tolerated Diet: diabetic diet, low fat, low cholesterol, low salt diet, other (renal diet) Hospital course: Mr. Abdul is a 82 year old male with the above medical problems who was initially admitted with generalized weakness and falls at home. He was noted to have mild hypercalcemia, acute on chronic renal failure due to dehydration along with functional deconditioning. He was given IV hydration with improvement in serum creatinine and potassium. Multiple imaging studies including CT head showed no evidence of acute fracture or trauma. EKG and telemetry monitoring, serial troponins remained negative. Patient was noted to have orthostatic hypotension, which is likely the cause of his weakness and falls. He was noted to be on multiple medications that could cause hypotension. At this time, lisinopril and Cymbalta are being held at discharge. Physical and occupational therapy evaluation was completed, patient was noted to have no needs at discharge. He also has 24-hour supervision from family members and is medically stable for discharge with home health services. - Time Spent with Patient Total time spent providing and/or coordinating discharge services: Greater than 30 minutes (40 min) - Constitutional Vitals: Temp Pulse Resp BP Pulse Ox 97.8 F 106 16 125/69 96 06/12/17 06:30 06/12/17 06:30 06/12/17 06:30 06/12/17 06:30 06/12/17 06:30 General appearance: Present: A&O X 1. Absent: answers questions appropriately - Respiratory Respiratory exam: Present: CTAB. Absent: accessory muscle use, rales, rhonchi, wheezes - Cardiovascular Cardiovascular exam: Present: RRR, +S1, +S2. Absent: diastolic murmur, gallop, rubs, systolic murmur
--- NOTE | 2017-06-12 10:06 | Physician Discharge Referral ---
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 For more information, call the [place] Tobacco Quit Line at 2-688-HJPH-NOW. - Diet/Nutrition Diet/Nutrition Orders: Renal, Cardiac, No Concentrated Sweets (diabetic) - Activity Activity Orders: Ambulate - Services Needed Following services are medically necessary services: Nursing - Transfer Medications Home Medications: Allopurinol [Zyloprim] 100 mg PO QAM 09/26/15 [History] Aspirin 81 mg PO QAM 09/26/15 [History] Tamsulosin [Flomax] 0.4 mg PO DAILY #30 capsule 09/29/15 [Rx] Atorvastatin [Lipitor] 40 mg PO HS 01/09/17 [History] Glimepiride [Amaryl] 4 mg PO DAILY 01/09/17 [History] LevETIRAcetam [Keppra] 500 mg PO BID 01/09/17 [History] Metoprolol [Lopressor] 25 mg PO BID 01/09/17 [History] Citalopram [CeleXA] 20 mg PO DAILY 05/26/17 [History] Gabapentin [Neurontin] 100 mg PO DAILY 05/26/17 [History] risperiDONE [RisperDAL] 1 mg PO DAILY 05/26/17 [History] Allergies/Adverse Reactions: Allergies Sulfa (Sulfonamide Antibiotics) Allergy (Verified 09/26/15 17:31) Rash morphine Adverse Reaction (Verified 09/26/15 17:31) Vomiting Certification: Further, I certify that my clinical findings support that this patient is homebound (i.e. absences from home require considerable and taxing effort and are for medical reasons or zoroastrianism services or infrequently or short duration when for other reasons) because: Homebound Reason: Altered mental status requiring supervision when leaving home Attestation: My signature below is to certify that this patient is under my care and that I, or nurse practitioner, or a physician's carpenter's assistant working with me, has a face-to -face encounter with this patient.
== END 2017-06-12 11:30 | disposition home health service (06) ==
LOC: 3ANU 08:10 → EMEROO 08:10 → 3ANU 10:12
PROVIDERS: ADMIT Internal Medicine; ATTEND Internal Medicine

== ENCOUNTER 2017-06-28 15:17 | Observation (INO) ==
[2017-06-28] MEDS ORDERED: Naloxone 0.4 MG/ML INJ IVP PRN (17:37)
[2017-06-28] MEDS ORDERED: Ondansetron 4 MG/2 ML VIAL IVP PRN (17:48)
[2017-06-28] MEDS ORDERED: Dextrose Gel 15 GM PO PRN ×2 (17:56)
[2017-06-28] MEDS ORDERED: D5% in Water 1,000 ML IVC PRN (17:56)
[2017-06-28] MEDS ORDERED: *HR* Dextrose 50 % in Water (Syg) 50 ML SYRINGE IVP PRN (17:56)
[2017-06-28] MEDS ORDERED: *HR* HYDROmorphone (PF) 1 MG/ML SYRINGE IVP PRN (18:02)
[2017-06-28] MEDS ORDERED: traMADol 50 MG TABLET PO PRN (18:02)
--- NOTE | 2017-06-28 18:18 | Internal Med History&Physical ---
<Arielle Hart M - Last Filed: 06/28/17 21:00> Date of Encounter: 06/28/17 Time of Encounter: 18:09 Assessment and Plan (1) Altered mental status Current visit: Yes Status: Acute Patient with history of CVA with residual aphasia, but per report is able to ambulate and feed himself. Per report, patient's family states patient has not gotten out of bed and is refusing food and drink the last 2 days. Patient has equal strength bilaterally, no new focal neuro deficits. Head CT was negative for acute intracranial abnormality, and showed evidence of his prior CVA. UA was negative for infection. Patient having significant right leg pain, which is likely reason he is not ambulating. speech consulted for swallow eval. PT/OT consult. Qualifiers: Altered mental status type: unspecified Qualified Code(s): R41.82 - Altered mental status, unspecified (2) Type 2 diabetes mellitus Current visit: Yes Status: Acute Hold glimeperide check blood sugars Q6hr while NPO sliding scale correction dose Q6hr hypoglycemic protocol. Qualifiers: Diabetes mellitus complication status: with unspecified complications Diabetes mellitus prison insulin use: without prison use Qualified Code( s): E11.8 - Type 2 diabetes mellitus with unspecified complications (3) Knee pain, right Current visit: Yes Status: Acute Patient yells out in pain with palpation of right knee or passive range of motion. Per report, family denies any fall or injury, but has not been getting out of bed the last 2 days. Joint is mildly swollen compared to left, but not warm or erythematous. Will get xray of right knee. He does have history of gout. Ultram and IVP dilaudid for pain control. narcan for respiratory depression. Qualifiers: Chronicity: acute Qualified Code(s): M25.561 - Pain in right knee (4) Global aphasia Current visit: Yes Status: Chronic Patient with history of hemorrhagic CVA with residual aphasia. Per report, he is able to feed himself and ambulate at baseline. bedside swallow ordered to determine if patient can swallow pills speech therapy consulted for formal swallow eval and diet texture recommendations. (5) Chronic kidney disease, stage III (moderate) Current visit: Yes Status: Chronic Creatinine of 1.77 is mildly above baseline of 1.55. Patient has not been eating or drinking the last few days, will give gentle fluids. Avoid NSAIDS. Check chemistry in the morning. (6) Dementia Current visit: Yes Status: Chronic Patient with baseline dementia. Continue home doses of Trazodone, Risperdol, Neurontin. Qualifiers: Dementia type: unspecified type Dementia behavioral disturbance: without behavioral disturbance Qualified Code(s): F03.90 - Unspecified dementia without behavioral disturbance (7) Atrial fibrillation with RVR Current visit: Yes Status: Acute Patient with history of afib. EKG from [facility] showed afib with RVR and HR in 110s-120s. Not on anticoagulation due to history of hemorrhagic stroke. Here he is still in RVR with HR in the 110s. Will give 5mg Metoprolol IVP x 1. Continuous cardiac exercise specialist. (8) Abdominal tenderness Current visit: Yes Status: Acute Patient's abdomen tender to palpation on right side. Abdomen is soft with positive bowel sounds and there are no reports of vomiting or diarrhea. Consider CT of abdomen/pelvis if signs/symptoms progress. Qualifiers: Abdominal location: unspecified location Presence of rebound: not specified Qualified Code(s): R10.819 - Abdominal tenderness, unspecified site (9) DVT prophylaxis Current visit: Yes Status: Acute Sequential compression devices. Patient with history of hemorrhagic CVA, will hold off on pharmacologic prophylaxis. Internal Medicine - H&P: HPI Chief complaint: AMS Admitted From: Hospital to Hospital Transfer Plans for Post Hospital Care: Home History of present illness: Mr. Abdul is a 82 year old male with history of CVA with aphasia, dementia, afib , type 2 diabetes, CHF, COPD transferred from [facility] ED with mental status change. Per report, patient is aphasic at baseline, but is able to ambulate and feed himself and the reported he has not gotten out of bed and has refused to eat or drink for the last 2 days. Family denied any known falls or injury. Review of systems is unobtainable as patient is aphasic. Evaluation at [facility] ED included hip xray which showed no acute findings, head CT showed no acute intracranial abnormality and evidence of prior CVA. CXR showed no acute process. UA was negative for infection. WBC mildly elevated at 12.6. Creatinine mildly elevated from baseline at 1.77 with previous baseline of 1.55. EKG showed afib with RVR and HR was 110s-120s. On exam, patient did open his eyes to name, but unable to assess orientation due to aphasia, and was not able to follow commands. Lungs clear to auscultation, heart had irregular, tachycardic rhythm. Abdomen was tender to palpation on right side, but was soft with positive bowel sounds. Right knee was tender to palpation and was painful with passive ROM. Past Med Surg Social Fam HX - Past Medical History Medical history: arthritis, atrial fibrillation, cancer, CHF, COPD, coronary artery disease, CVA, diabetes, hypertension, other Psychiatric history: no psych history - Past Surgical History Surgical History: cholecystectomy, knee replacement, orthopedic, other, prostatectomy, other - Social History Smoking Status: Never smoker Smokeless Tobacco Status: No Alcohol use: none Drug use: none Internal Medicine - H&P: Meds Allopurinol [Zyloprim] 100 mg PO QAM 09/26/15 [History] Aspirin 81 mg PO QAM 09/26/15 [History] Tamsulosin [Flomax] 0.4 mg PO DAILY #30 capsule 09/29/15 [Rx] Atorvastatin [Lipitor] 40 mg PO HS 01/09/17 [History] Glimepiride [Amaryl] 4 mg PO DAILY 01/09/17 [History] LevETIRAcetam [Keppra] 500 mg PO BID 01/09/17 [History] Metoprolol [Lopressor] 25 mg PO BID 01/09/17 [History] Citalopram [CeleXA] 20 mg PO DAILY 05/26/17 [History] Gabapentin [Neurontin] 100 mg PO TID 05/26/17 [History] risperiDONE [RisperDAL] 1 mg PO DAILY 05/26/17 [History] DULoxetine [Cymbalta] 30 mg PO DAILY 06/28/17 [History] traZODone [TraZODone] 150 mg PO HS 06/28/17 [History] Allergies Sulfa (Sulfonamide Antibiotics) Allergy (Verified 09/26/15 17:31) Rash morphine Adverse Reaction (Verified 09/26/15 17:31) Vomiting ROS unobtainable: due to mental status All Systems PM: A 10-system review of systems was performed and is negative for pertinent findings except as documented above in the HPI. - Constitutional Vitals: Temp Pulse Resp BP Pulse Ox 98.3 F 114 20 111/68 95 06/28/17 17:37 06/28/17 17:37 06/28/17 17:37 06/28/17 17:37 06/28/17 17:37 General appearance: Present: no acute distress. Absent: answers questions appropriately - Head Head exam: Present: atraumatic, normocephalic - Eye Eye exam: Present: PERRL, conjuntiva pink, sclera anicteric Pupils: Present: PERRL - Neck Neck exam general surgery: Present: supple, trachea midline. Absent: lymphadenopathy - Respiratory Respiratory exam: Present: CTAB. Absent: accessory muscle use, rales, rhonchi, wheezes - Cardiovascular Cardiovascular exam: Present: irregular rhythm, +S1, +S2, tachycardia. Absent: diastolic murmur, gallop, rubs, systolic murmur - GI/Abdominal GI/Abdominal exam: Present: normal bowel sounds, soft, tenderness (on right side ), no peritoneal signs. Absent: distended - Extremities Exam Extremities exam: Present: joint swelling (right knee), tenderness (right knee) , warm, radial pulses palpable and symmetrical. Absent: calf tenderness, cyanotic, pedal edema - Neurological Exam Neurological exam: Present: speech deficit. Absent: oriented X3, facial droop - Expanded Neurological Exam Speech: Present: total aphasia Cranial Nerves: EOM's intact PM: Normal Neuro motor strength exam: LUE: 4, RUE: 4 - Skin Skin exam: Present: dry, intact Internal Med - H&P Results - Labs Labs: Labs from [facility]: WBC 12.6 Hgb 14.0 Hct 40.1 Plt 211 Na 137 K 4.7 Cl 100 Co2 21 BUN 26 Cr 1.77 Glu 210 <Joseph Cabrera - Last Filed: 06/29/17 18:37> Date of Encounter: 06/29/17 Internal Medicine - H&P: HPI History of present illness: Mr. Abdul is a 82 year old male All Systems PM: A 10-system review of systems was performed and is negative for pertinent findings except as documented above in the HPI. - Constitutional Vitals: Temp Pulse Resp BP Pulse Ox 98.0 F 97 20 116/73 97 06/29/17 15:38 06/29/17 15:38 06/29/17 15:38 06/29/17 15:38 06/29/17 15:38 Internal Med - H&P Results - Labs CBC & Chem 7: 06/29/17 04:02 06/29/17 04:02 Labs: Short CBC 06/29/17 Range/Units 04:02 WBC 9.8 (4.3-11.1) K/mcL Hgb 11.7 L D (12.9-16.9) g/dL Hct 35.2 L (37.5-50.1) % Plt Count 193 (140-400) K/mcL Neutrophils # 7.1 (1.6-8.9) K/mcL BMP 06/29/17 04:02 Sodium 139 Potassium 4.4 Chloride 105 Carbon Dioxide 27 BUN 28 H Creatinine 1.55 H Glucose 151 H Calcium 8.7 - Impressions ITS Impressions Knee X-Ray 06/28/17 17:52 IMPRESSION: 1. Nonspecific large joint effusion. No acute fracture dislocation identified. D/ / Patrick Johnson MD / Patrick Johnson MD Interpreting Provider: Patrick Johnson MD - Attending Attestation I examined this patient and my medical decision-making was reviewed with the COPY WORKER. I agree with the documented findings, disposition and treatment plan as described .
[2017-06-28] MEDS: Insulin LISPRO 300 UNITS/3 ML VIAL SQ SCH (19:03)
[2017-06-28] MEDS ORDERED: *HR* Metoprolol 5 MG/5 ML VIAL IVP ONE (19:12)
[2017-06-28] MEDS ORDERED: levETIRAcetam 250 MG TABLET PO SCH (21:00)
[2017-06-28] MEDS ORDERED: Gabapentin 100 MG CAPSULE PO SCH (21:00)
[2017-06-28] MEDS: 0.9 % Sodium Chloride 1,000 ML IVC SCH (21:08)
[2017-06-28] MEDS: traZODone 50 MG TABLET PO SCH (21:09)
[2017-06-28] MEDS ORDERED: *HR* LORazepam 2 MG/ML VIAL IVP PRN (21:24)
[2017-06-29] MEDS: *HR* Metoprolol 5 MG/5 ML VIAL IVP SCH ×5 (00:04→23:55)
[2017-06-29] MEDS: Insulin LISPRO 300 UNITS/3 ML VIAL SQ SCH ×5 (00:04→23:55)
[2017-06-29 05:06] LABS: Calcium 8.7 mg/dL (8.6-10.8); Potassium 4.4 mEq/L (3.5-4.5)
[2017-06-29 06:10] LABS: Basophils % 0.2 %; Eosinophils % 0.1 %; Hematocrit 35.2 % (37.5-50.1); Hemoglobin 11.7 g/dL (12.9-16.9); Immature Granulocytes % 0.3 % (0-4); Lymphocytes # 1.5 K/mcL (0.6-4.6); Lymphocytes % 15.1 %; Mean Corpuscular HGB Conc 33.2 g/dL (31.6-35.5); Mean Corpuscular Hemoglobin 30.4 pg (28.0-33.3); Mean Corpuscular Volume 91.4 fL (83.0-100.0); Mean Platelet Volume 10.8 fL (9.4-12.4); Monocytes # 1.2 K/mcL (0.0-1.3); Monocytes % 11.8 %; Neutrophils # 7.1 K/mcL (1.6-8.9); Platelet Count 193 K/mcL (140-400); Red Blood Count 3.85 M/mcL (4.19-5.50); Red Cell Distribution Width 13.2 % (11.5-14.5); Segmented Neutrophils % 72.5 %
[2017-06-29] MEDS ORDERED: risperiDONE 1 MG TABLET PO SCH (09:00)
[2017-06-29] MEDS ORDERED: Aspirin Enteric Coated 81 MG Tablet PO SCH (09:00)
--- NOTE | 2017-06-29 11:45 | Electrocardiograph Report ---
[address] [place] [address] Test Date: 2017-06-28 Pat Name: Nataliia Abdul Department: 113 Room: 3B23 Gender: M [employer] Person: [id number] : 1935 Requested By: Arielle Hart Order Number: [id number] Reading MD: Lupillo Tidwell MD Measurements Intervals Floyd Rate: 123 P: MO: 0 QRS: -19 QRSD: 101 T: 153 QT: 318 QTc: 391 Interpretive Statements ATRIAL FIBRILLATION WITH RAPID VENTRICULAR RESPONSE LEFT VENTRICULAR HYPERTROPHY AND ST-T CHANGE INFERIOR MYOCARDIAL INFARCTION, PROBABLY OLD Electronically Signed On 06-29-2017 11:43:29 EDT by Lupillo Tidwell MD
[2017-06-29] MEDS: 0.9 % Sodium Chloride 1,000 ML IVC SCH ×2 (12:50→17:05)
--- NOTE | 2017-06-29 13:28 | Internal Med Progress Note ---
Date of Encounter: 06/29/17 Time of Encounter: 09:30 - Assessment and plan (1) Confabulation Current Visit: Yes Status: Chronic Assessment and plan: On examination, patient speaking incessantly and is unintelligible. His states that at times, she can follow him in conversation but for the most part, he just "talks all day." No evidence of expressive aphasia as was previously charted. He appears to have receptive aphasia as he is not able to follow commands at this time. MRI pending. Neurology on board. (2) Diarrhea Current Visit: Yes Status: Acute Assessment and plan: Unclear causation at this time. Patient's states that he has a normal bowel movement every other day. Shortly after admission, patient had several bouts of diarrhea. Negative for C. difficile, will send for further stool studies. IV fluids, will monitor electrolytes. (3) Atrial fibrillation with RVR Current Visit: Yes Status: Resolved (4) Weakness Current Visit: No Status: Acute Assessment and plan: Physically, patient is not weak in fact his arms and legs are quite strong but he is unable to follow commands or to stand up at this time. MRI pending. Due to his inability to follow commands and walk at this time, OT and PT recommended ECF placement. Per manager social media, family history as in [place] -his insurance will take 3 days most likely. (5) Gout of knee Current Visit: No Status: Suspected Assessment and plan: patient with edema, warmth and tenderness to his right knee. Xray revealing large effusion. No erythema, but is warm to touch. No leukocytosis making septic joint less likely but will await Rheum recommendations. Will consider steroids/NSAIDS after MRI and once septic arthritis is ruled out. Will bring Rheumatology onboard for possible joint aspiration- will need called in the am. (6) Knee pain, right Current Visit: Yes Status: Acute Assessment and plan: Acute on chronic however his states that his knee has never been this swollen before suspect gout, cannot entirely rule out septic joint. Will obtain uric acid levels and ESR CRP. 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 He was in rehabilitation at [place] status post left temporal intracerebral hemorrhage for speech deficits. His states that he continues to talk incessantly and sometime she can follow them but most of time she cannot. She states that she is able to get him to follow commands at times when she speaks very loudly and snapped her fingers and his face to get his attention. He currently is not at his baseline, MRI pending. Qualifiers: Intracerebral hemorrhage etiology: traumatic Encounter type: subsequent encounter Laterality: left Loss of consciousness presence/duration: with LOC of unspecified duration Qualified Code(s): S06.359D - Traumatic hemorrhage of left cerebrum with loss of consciousness of unspecified duration, subsequent encounter (8) Chronic kidney disease, stage III (moderate) Current Visit: Yes Status: Chronic Assessment and plan: Stable and consistent with his baseline, will trend (9) Dementia Current Visit: Yes Status: Chronic Assessment and plan: Difficult to distinguish whether his baseline is due to dementia versus deficits from his CVA. In any event, his states that he is not back to his baseline saying he is usually much more active and at this point, we cannot get the patient to stand up or get out of bed. He is currently able to feed himself. Qualifiers: Dementia type: unspecified type Dementia behavioral disturbance: without behavioral disturbance Qualified Code(s): F03.90 - Unspecified dementia without behavioral disturbance (10) Diabetes mellitus Current Visit: No Status: Chronic Assessment and plan: Relatively well controlled with an A1c of 8.0%. Continue sliding scale while admitted. Qualifiers: Diabetes mellitus type: type 2 Diabetes mellitus complication status: with kidney complications Diabetes mellitus complication detail: with chronic kidney disease Diabetes mellitus buttermaker continuous churn insulin use: without buttermaker continuous churn use Chronic kidney disease stage: stage 3 (moderate) Qualified Code(s): E11.22 - Type 2 diabetes mellitus with diabetic chronic kidney disease; N18.3 - Chronic kidney disease, stage 3 (moderate) (11) Code status needs review Current Visit: Yes Status: Resolved Assessment and plan: I spoke to the patient's who is his power of attorney recruiter. She states that he is a DNR CCA DNI. She states she had the paperwork in her truck and will bring them in tomorrow. (12) DVT prophylaxis Current Visit: Yes Status: Acute Assessment and plan: Pharmacologic prophylaxis contraindicated secondary to history of hemorrhagic stroke, MRI pending. ICD's ordered. - Subjective Interval history: Patient seen and examined earlier this morning. On examination, patient persistently talking but I am unable to follow what he is saying. Attempted ask him orientation questions, but he continues to speak unintelligibly. I then reexamined him when physical therapy and occupational therapy were at the bedside and at this time, he was again continually talking and he was unable to follow commands or to stand up. I then went back and once his arrived later on today and patient continued to continually talk. His states that she that he has been this way since her stroke in December of this year. The was able to get him to sit up in bed and was able to get him to follow a couple commands but she states that she has to raise her voice and to snap her fingers and his face to get him to stop talking long enough to listen to her command. She states this is the weights been since the stroke in December. Patient denies pain at this time. But he is a remarkably poor historian unfortunately. He does however wince when his right knee is touched or moved. - Constitutional Vitals: Temp Pulse Resp BP Pulse Ox 98.1 F 97 20 120/80 95 06/29/17 11:35 06/29/17 11:35 06/29/17 11:35 06/29/17 11:35 06/29/17 11:35 General appearance: Present: A&O X 1, no acute distress. Absent: answers questions appropriately - Head Head exam: Present: atraumatic, normocephalic - Eye Eye exam: Present: PERRL, conjuntiva pink, sclera anicteric Pupils: Present: PERRL - Neck Neck exam general surgery: Present: supple, trachea midline. Absent: lymphadenopathy - Respiratory Respiratory exam: Present: decreased breath sounds. Absent: accessory muscle use, rales, respiratory distress, rhonchi, wheezes - Cardiovascular Cardiovascular exam: Present: RRR, +S1, +S2. Absent: diastolic murmur, gallop, rubs, systolic murmur - GI/Abdominal GI/Abdominal exam: Present: distended, hyperactive bowel sounds, normal bowel sounds, soft, no peritoneal signs. Absent: tenderness - Extremities Exam Extremities exam: Present: warm, radial pulses palpable and symmetrical. Absent : calf tenderness, cyanotic, pedal edema - Expanded Lower Extremities Exam Knee exam: Present: swelling, tenderness, warmth. Absent: erythema, full ROM, normal inspection Gait: Absent: not tested/not observed (wound not stand up) - Neurological Exam Neurological exam: Present: altered, CN II-XII intact, no focal deficits, strengths equal and symetr throughout. Absent: normal gait, oriented X3, pronater drift, facial droop, speech deficit - Expanded Neurological Exam Patient oriented to: Present: person. Absent: place, time Speech: Present: garbled Neuro motor strength exam: LUE: 5, RUE: 5, LLE: 5, RLE: 5 Coma Scale Eye Opening: Spontaneous Coma Scale Motor Response: Withdraws to Pain Coma Scale Verbal Response: Incomprehensible Coma Scale Total: 10 - Skin Skin exam: Present: dry, intact, pallor, warm Internal Medicine: Result - Labs CBC & Chem 7: 06/29/17 04:02 06/29/17 04:02 Labs: Short CBC 06/29/17 Range/Units 04:02 WBC 9.8 (4.3-11.1) K/mcL Hgb 11.7 L D (12.9-16.9) g/dL Hct 35.2 L (37.5-50.1) % Plt Count 193 (140-400) K/mcL Neutrophils # 7.1 (1.6-8.9) K/mcL BMP 06/29/17 04:02 Sodium 139 Potassium 4.4 Chloride 105 Carbon Dioxide 27 BUN 28 H Creatinine 1.55 H Glucose 151 H Calcium 8.7 - Impressions Impressions Knee X-Ray 06/28/17 17:52 IMPRESSION: 1. Nonspecific large joint effusion. No acute fracture dislocation identified. D/ / Patrick Johnson MD / Patrick Johnson MD Interpreting Provider: Patrick Johnson MD Consult Discharge Plan - Plan Referrals: NONE,PCP [Primary Care Provider] -
[2017-06-29] MEDS ORDERED: *HR* LORazepam 2 MG/ML VIAL IVP ONE (17:39)
[2017-06-29] MEDS: traZODone 50 MG TABLET PO SCH (21:01)
[2017-06-29 22:11] LABS: Adenovirus F 40/41 PCR Not detected (Not detect); Astrovirus PCR Not detected (Not detect); C.difficile Toxin A/B by PCR Not detected (Not detect); Campylobacter by PCR Not detected (Not detect); Cryptosporidium by PCR Not detected (Not detect); Cyclospora cayetanensis PCR Not detected (Not detect); E. coli O157 by PCR Not detected (Not detect); Entamoeba histolytica PCR Not detected (Not detect); Enteroaggregative E.coli(EAEC) Not detected (Not detect); Enteropathogenic E.coli(EPEC) Not detected (Not detect); Enterotoxigenic E.coli (ETEC) Not detected (Not detect); Giardia lamblia PCR Not detected (Not detect); Norovirus GI/GII PCR Not detected (Not detect); Plesiomonas shigelloides PCR Not detected (Not detect); Rotavirus A PCR Not detected (Not detect); Salmonella PCR Not detected (Not detect); Sapovirus PCR Not detected (Not detect); Shig/EnteroinvasiveE coli EIEC Not detected (Not detect); Shigalike tox-prod E coli STEC Not detected (Not detect); Vibrio PCR Not detected (Not detect); Vibrio cholerae PCR Not detected (Not detect); Yersinia enterocolitica PCR Not detected (Not detect)
[2017-06-30 05:54] LABS: Basophils % 0.4 %; Eosinophils # 0.1 K/mcL (0.0-0.6); Eosinophils % 1.5 %; Hematocrit 33.5 % (37.5-50.1); Hemoglobin 10.7 g/dL (12.9-16.9); Immature Granulocytes % 0.6 % (0-4); Lymphocytes % 22.8 %; Mean Corpuscular HGB Conc 31.9 g/dL (31.6-35.5); Mean Corpuscular Hemoglobin 29.9 pg (28.0-33.3); Mean Corpuscular Volume 93.6 fL (83.0-100.0); Mean Platelet Volume 10.6 fL (9.4-12.4); Monocytes # 1.1 K/mcL (0.0-1.3); Monocytes % 12.3 %; Neutrophils # 5.3 K/mcL (1.6-8.9); Platelet Count 181 K/mcL (140-400); Red Blood Count 3.58 M/mcL (4.19-5.50); Segmented Neutrophils % 62.4 %
[2017-06-30 06:11] LABS: BUN/Creatinine Ratio 19 (6-26); Blood Urea Nitrogen 26 mg/dL (8-26); C-Reactive Protein 174 mg/L (Less than 5); Calcium 8.7 mg/dL (8.6-10.8); Carbon Dioxide 26 mEq/L (19-29); Chloride 108 mEq/L (98-109); Glucose 120 mg/dL (70-99); Magnesium 1.8 mg/dL (1.6-2.6); Osmolality,Calculated 294 (280-300); Potassium 4.3 mEq/L (3.5-4.5); Uric Acid 5.8 mg/dL (3.5-7.2); eGFR For African Americans > 60 (> 60); eGFR For Non-African Americans 51 (> 60)
[2017-06-30 06:12] LABS: Sodium 139 mEq/L (136-145)
[2017-06-30] MEDS: *HR* Metoprolol 5 MG/5 ML VIAL IVP SCH ×4 (06:37→23:56)
[2017-06-30] MEDS: Insulin LISPRO 300 UNITS/3 ML VIAL SQ SCH ×3 (06:43→16:43)
[2017-06-30] MEDS: 0.9 % Sodium Chloride 1,000 ML IVC SCH (08:48)
--- NOTE | 2017-06-30 09:14 | Rheumatology Consult Note ---
<JeaniekoryEder Garcia - Last Filed: 06/30/17 14:32> Date of Encounter: 06/30/17 Time of Encounter: 09:00 Rheumatology Assess and Plan (1) Knee pain, right Current Visit: Yes Status: Acute Mr. Abdul an 82yo Male with a hx of Gout + tophi, HTN, DM and ONUR on CKD who presents with AMS and a right edematous knee that is painful and warm to the touch. Uric acid 5.8, with previous hx of elevation to 10.0 ESR >170 with recent hx of a normal ESR. - Currently not on his home Allopurinol. DDX: Gout arthritis, septic joint, CPPD. - Low suspicion for septic arthritis as the patient is not ill appearing, no fever, elevation in WBC or other concerning findings. Blood cultures were negative. Plan: - Joint aspiration -Gram stain, synovial cultures, crystal studies - If synovial fluid comes back negative for bacterial growth then a steroid injection would be beneficial - Will not start Colchicine at this time as the suspected Gout attack has been around greater than 58 hours. Will start oral Prednisone at 40mg PO daily. - Advised patient to follow up in the outpatient setting. Qualifiers: Chronicity: acute Qualified Code(s): M25.561 - Pain in right knee (2) Type 2 diabetes mellitus Current Visit: Yes Status: Acute Controlled on inpatient regimen. Will defer management to primary team. Qualifiers: Diabetes mellitus complication status: with unspecified complications Diabetes mellitus penitentiary insulin use: without moth exterminator use Qualified Code( s): E11.8 - Type 2 diabetes mellitus with unspecified complications (3) Chronic kidney disease, stage III (moderate) Current Visit: Yes Status: Chronic Known Chronic CKD stage 3 with baseline Creatinine around 1.55 and GFR in the 50 's. presented with ONUR and diminished GFR. - resolving with current therapy. (4) Dementia Current Visit: Yes Status: Chronic Qualifiers: Dementia type: unspecified type Dementia behavioral disturbance: without behavioral disturbance Qualified Code(s): F03.90 - Unspecified dementia without behavioral disturbance (5) Atrial fibrillation with RVR Current Visit: Yes Status: Resolved Currently A-fib with rapid ventricular rate. Patient is asymptomatic at this time. - Continue current management. (6) CVA (cerebrovascular accident) Current Visit: No Status: Acute Known hx of cerebral infarcts. CT and MRI without significant findings for bleed or new stroke. 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 Current Uric acid is 5.8. To be effective in reducing Tophi size and prevent further gouty attacks, the Uric acid needs to below 6.0 and even lower to improve risk of acute gout flare. - Once patient is stable and acute gout attack has resolved he may restart in Allopurinol. Qualifiers: Gout site: unspecified site Gout etiology: unspecified cause Chronicity: chronic Presence of tophus: with tophus Qualified Code(s): M1A.9XX1 - Chronic gout, unspecified, with tophus (tophi) Rheumatology HPI Consult date: 06/30/17 Requesting physician: Anyi Israel Consult reason: Swollen right knee Chief complaint: AMS History of present illness: Mr. Abdul is a 82 year old male with pmhx of DM type II, HTN, CAD, CVA, Dementia , gout arthritis, aphagia, limited mobility was brought in by ambulance after he demonstrated abnormal behavior and worsening of mental status. The patient is altered upon evaluation and medical hx was obtained from the patient's Katelyn Abdul. Mrs. Abdul says that Mr. Abdul started having decreased appetite on with his last full meal that evening. He was less interactive on Thursday and when offered breakfast he dumped it on the table and then poured his coffee all over the table which was completely outside of his normal. He transferred without to much difficulty from the bed to his wheelchair. He started to complain of right LE pain radiating from his hip to his right foot. He has dementia and his mental status waxes and wanes day to day and Mrs. Abdul was not sure if this was to be concerned about at that time. On Thursday Mr. Abdul would not get out of bed and his mental status was significantly worse. He complained of right LE pain and when she looked at his right leg he had a swollen right knee that was hot to touch. She became concerned and called EMS. She says he has a history of Gout arthritis with a recent tophi surgery on his right large toe last month. She is unaware of him ever having gouty attacks in his knee joints or any other large join in the past. He is a type II DM who adheres to a diabetic diet, does not smoke or drink alcohols. She is unsure of his last gouty attack and says he is too altered normally to usually vocalize if he is having a gouty attack. Besides the recent surgical procedure he has not suffered any injuries that would cause as a source for infection. Past Med Surg Social Fam HX - Past Medical History Medical history: arthritis, atrial fibrillation, cancer, CHF, COPD, coronary artery disease, CVA, diabetes, hypertension, other Psychiatric history: no psych history - Past Surgical History Surgical History: cholecystectomy, knee replacement, orthopedic, other, prostatectomy, other - Social History Smoking Status: Never smoker Smokeless Tobacco Status: No Alcohol use: none Drug use: none Medications and Allergies Allopurinol [Zyloprim] 100 mg PO QAM 09/26/15 [History] Aspirin 81 mg PO QAM 09/26/15 [History] Tamsulosin [Flomax] 0.4 mg PO DAILY #30 capsule 09/29/15 [Rx] Atorvastatin [Lipitor] 40 mg PO HS 01/09/17 [History] Glimepiride [Amaryl] 4 mg PO DAILY 01/09/17 [History] LevETIRAcetam [Keppra] 500 mg PO BID 01/09/17 [History] Metoprolol [Lopressor] 25 mg PO BID 01/09/17 [History] Citalopram [CeleXA] 20 mg PO DAILY 05/26/17 [History] Gabapentin [Neurontin] 100 mg PO TID 05/26/17 [History] risperiDONE [RisperDAL] 1 mg PO DAILY 05/26/17 [History] DULoxetine [Cymbalta] 30 mg PO DAILY 06/28/17 [History] traZODone [TraZODone] 150 mg PO HS 06/28/17 [History] Allergies Sulfa (Sulfonamide Antibiotics) Allergy (Verified 09/26/15 17:31) Rash morphine Adverse Reaction (Verified 09/26/15 17:31) Vomiting ROS unobtainable: due to mental status All Systems Review: A 10-system review of systems was performed and is negative for pertinent findings except as documented above in the HPI. Rheumatology Exam Vital Signs, Last 4 Hours Temp Pulse Resp BP Pulse Ox 06/30/17 08:00 95 06/30/17 07:38 98.2 F 80 16 160/91 95 Exam: Gen: Alert, awake, interactive, oriented to self only. HEENT: NC/AD,Pupils equal and reactive to light, oral mucous moist, neck supple and midline without any lymphadenopathy. Chest: Symmetric bilaterally correlated with respiratory effort. Cardiac:irregularly irregular. No murmurs or gallops are appreciated. bilateral LE pulses 2+ Respiratory: CTA GI:soft, nontender to palpation, + BS MSK: right olecronon bursa is enlarged, right PCP joint with mild sinovitis. right knee is edematous, warm to palpation and tender to mild palpation or limb movement. 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 Neuro: AOX1 Rheumatology Results 06/30/17 05:04 06/30/17 05:04 All other labs normal. Consult Discharge Plan - Plan Referrals: Haresh Ruiz, [Partnered Physician] - 07/22/17 3:30 pm NONE,PCP [Primary Care Provider] - <Haresh Ruiz - Last Filed: 06/30/17 17:42> Date of Encounter: 06/30/17 Rheumatology HPI History of present illness: Mr. Abdul is a 82 year old male All Systems Review: A 10-system review of systems was performed and is negative for pertinent findings except as documented above in the HPI. Rheumatology Exam Vital Signs, Last 4 Hours Temp Pulse Resp BP Pulse Ox 06/30/17 15:17 97.4 F L 92 16 150/89 95 Rheumatology Results 06/30/17 05:04 06/30/17 05:04 All other labs normal. - Attending Attestation I examined this patient and my medical decision making was reviewed with the resident physician. I agree with the documented findings, disposition and treatment as described with these exceptions. In summary, Nataliia Abdul is an 82-year-old male with PMH of CVA, DM2, CKD III, dementia, Afib, tophaceous gout who presents to the hospital with altered mental status and right knee pain with effusion. Previous history of tophaceous gout. Previous uric acid levels have been suboptimal on allopurinol 100 mg. Has had recent tophectomy of foot. Uric acid 5.8 in setting of gout attack, >10 in 2015. Blood cultures negative. Knee xray with effusion. No fevers. Right knee effusion with pain on ROM and pressure. Recommend aspiration for culture, gram stain, cell count and crystal analysis. Suspect gouty arthritis. While await results, start prednisone 40 mg po daily with close monitoring of blood glucose.
--- NOTE | 2017-06-30 11:04 | Internal Med Progress Note ---
Date of Encounter: 06/30/17 Time of Encounter: 09:40 - Assessment and plan (1) Confabulation Current Visit: Yes Status: Chronic Assessment and plan: Pt is pleasantly confused. His speech is clear. He does not complete most thoughts or sentences. This appears to be his baseline. He does not follow commands. Brain MRI shows multiple prior infarcts, multifocal small-vessel ischemic change, and remote insult in the left temporal lobe with associated encephalomalacia and gliosis with associated multifocal calcification and multifocal hemosiderin deposition. (2) Gout of knee Current Visit: No Status: Suspected Assessment and plan: Pt with right knee swelling and difficulty with ambulation since Thursday. He has had recent tophi surgery to right great toe. Knee is not red, but is warm. Pt denies pain with palpation or with passive ROM of knee. 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 Continue home medications. 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 MRI negative for acute infarct. Brain MRI 06/29/17 17:38 IMPRESSION: Remote insult in the left temporal lobe with associated encephalomalacia and gliosis. There is also associated multifocal calcification and multifocal hemosiderin deposition. There is also a suggestion of a small amount of left inferior lateral frontal lobe encephalomalacia with gliosis. 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 This appears to be better than his recent baseline. IVF have been slowed to 50ml/hour. Continue to monitor labs and avoid nephrotoxins and NSAIDs. (6) Dementia Current Visit: Yes Status: Chronic Assessment and plan: Continue to monitor. Pt is close to nurse's station and is on fall precautions. I have been unable to speak with today to see if he is back at baseline. Qualifiers: Dementia type: unspecified type Dementia behavioral disturbance: without behavioral disturbance Qualified Code(s): F03.90 - Unspecified dementia without behavioral disturbance (7) Diabetes mellitus Current Visit: No Status: Chronic Assessment and plan: A1c 8.0%. Continue SSI, accuchecks achs, and diabetic diet. Qualifiers: Diabetes mellitus type: type 2 Diabetes mellitus complication status: with kidney complications Diabetes mellitus complication detail: with chronic kidney disease Diabetes mellitus long term care phlebotomist insulin use: without long term care phlebotomist use Chronic kidney disease stage: stage 3 (moderate) Qualified Code(s): E11.22 - Type 2 diabetes mellitus with diabetic chronic kidney disease; N18.3 - Chronic kidney disease, stage 3 (moderate) (8) Knee pain, right Current Visit: Yes Status: Acute Assessment and plan: Plan as above. Qualifiers: Chronicity: acute Qualified Code(s): M25.561 - Pain in right knee (9) Atrial fibrillation with RVR Current Visit: Yes Status: Resolved Assessment and plan: Per EKG on admission, a-fib RVR with LV hypertrophy and ST-T change. Rate 123, VA 0, QRS 101, QTc 391. Pt is not on anticoagulation due to prior hemorrhagic stroke. Continue telemetry and BB . (10) DVT prophylaxis Current Visit: Yes Status: Acute Assessment and plan: Pharmacologic prophylaxis contraindicated secondary to history of hemorrhagic stroke, MRI pending. ICD's ordered. - Time Spent With Patient less than 15 minutes - Subjective Interval history: Pt was seen and assessed at 0940 this a.m. Pt is pleasantly confused and oriented to name only. He states that he does not have enough money to "stay here and let that young silvano work on my knee everyday." Pt denies pain with movement of right knee. He denies chest pain or abdominal pain. - Constitutional Vitals: Temp Pulse Resp BP Pulse Ox 98.2 F 80 16 160/91 95 06/30/17 07:38 06/30/17 07:38 06/30/17 07:38 06/30/17 07:38 06/30/17 08:00 General appearance: Present: cooperative, A&O X 1, mild distress, pleasant, no acute distress. Absent: answers questions appropriately - Head Head exam: Present: normal inspection - Eye Eye exam: Present: normal appearance, conjuntiva pink - ENT ENT exam: Present: mucous membranes moist, normal exam - Neck Neck exam general surgery: Present: normal inspection. Absent: lymphadenopathy , tenderness - Respiratory Respiratory exam: Present: decreased breath sounds, CTAB. Absent: rales, respiratory distress, rhonchi, stridor, wheezes - Cardiovascular Cardiovascular exam: Present: RRR, +S1, +S2. Absent: clicks, diastolic murmur, gallop, systolic murmur - GI/Abdominal GI/Abdominal exam: Present: distended, normal bowel sounds, soft. Absent: hepatomegaly, tenderness - Extremities Exam Extremities exam: Present: joint swelling, normal capillary refill, warm, radial pulses palpable and symmetrical. Absent: normal inspection, pedal edema , tenderness - Neurological Exam Neurological exam: Present: alert, altered, no focal deficits. Absent: oriented X3, facial droop, speech deficit - Skin Skin exam: Present: dry, intact, warm Internal Medicine: Result - Labs CBC & Chem 7: 06/30/17 05:04 06/30/17 05:04 Labs: Short CBC 06/30/17 Range/Units 05:04 WBC 8.6 (4.3-11.1) K/mcL Hgb 10.7 L (12.9-16.9) g/dL Hct 33.5 L (37.5-50.1) % Plt Count 181 (140-400) K/mcL Neutrophils # 5.3 (1.6-8.9) K/mcL BMP 06/30/17 05:04 Sodium 139 Potassium 4.3 Chloride 108 Carbon Dioxide 26 BUN 26 Creatinine 1.34 H Glucose 120 H Calcium 8.7 - Impressions Impressions Brain MRI 06/29/17 17:38 IMPRESSION: Remote insult in the left temporal lobe with associated encephalomalacia and gliosis. There is also associated multifocal calcification and multifocal hemosiderin deposition. There is also a suggestion of a small amount of left inferior lateral frontal lobe encephalomalacia with gliosis. Multiple additional prior infarcts Multifocal small-vessel ischemic change No acute abnormality otherwise D/ / Keshav Dunham / Keshav Dunham Interpreting Provider: Keshav Dunham Consult Discharge Plan - Plan Referrals: NONE,PCP [Primary Care Provider] -
[2017-06-30 13:51] LABS: Appearance of Body Fluid Cloudy (Clear); Source of Body Fluid right knee aspiratio; Volume of Body Fluid 8 mL
--- NOTE | 2017-06-30 15:12 | Event Note ---
<Eder Fitzpatrick - Last Filed: 06/30/17 15:05> Date of Encounter: 06/30/17 Time of Encounter: 11:00 PRE-OP DIAGNOSIS: Monoarthritis POST-OP DIAGNOSIS: Same PROCEDURE: Right knee joint Aspiration Performing Physician: Eder Fitzpatrick DO Supervising Physician (if applicable): Dr. Haresh Ruiz Procedure and risks vs. benefits were nn discussed with Mrs. Katelyn Abdul patients who provided verbal consent to proceed with the procedure. Procedure: The area was prepped in the usual sterile manner. A time out was taken to properly review the procedure to be performed and confirm the patients identity. The needle was inserted into the affected area and roughly 50cc of yellow/sanguineous synovial fluid was aspirated. There were no complications during this procedure. Labs ordered: gram stain, cultures, crystal evaluation. Followup: The patient tolerated the procedure well without complications. Standard post-procedure care is explained and return precautions are given. This procedure was performed under the direct supervision of Dr. Ruiz who was present throughout the procedure. <Haresh Ruiz - Last Filed: 06/30/17 17:43> Date of Encounter: 06/30/17 I examined this patient and my medical decision making was reviewed with the resident physician. I agree with the documented findings, disposition and treatment as described with these exceptions.I was present for this entire procedure and there were no complications. fluid was sent to the lab.
--- NOTE | 2017-06-30 16:49 | Neurology - Consult Note ---
Date of Encounter: 06/30/17 Time of Encounter: 16:45 Assessment and Plan (1) Mental status change resolved Current Visit: Yes Status: Acute This gentleman seems now to have returned to his normal baseline mental status. The etiology of the transient disturbances likely multifactorial. He has a baseline dementia, he also has expressive and receptive aphasia due to her previous left temporal lobe hemorrhagic infarct. There may have been a sundowning component, then may been contributing, perhaps he may have had a septic joint. He did have some diarrhea initially perhaps had a a viral syndrome. I see no evidence of a central nervous system infectious process or acute cerebral infarction. At this time he seems to have returned to his normal baseline. No further testing is recommended from a neurologic perspective. I will reevaluate him at your request. History of Present Illness HPI: Mr. 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 Apparently now he is back to his baseline however he does have jargon speech is a result of the previous left temporal lobe infarction. I did review the MRA scan of the brain which does reveal an old left temporal lobe infarct however there is significant deep white matter ischemic change and scattered lacunar infarcts throughout the deep white matter and basal ganglia. There is no evidence of an acute infarction. His BUN/ creatinine were transiently elevated, he did have pain and swelling of the right knee. The swollen knee was aspirated by rheumatology the fluid was cloudy and did not contain nucleated cells 98% of which were neutrophils. Past Med Surg Social Fam HX - Past Medical History Medical history: arthritis, atrial fibrillation, cancer, CHF, COPD, coronary artery disease, CVA, diabetes, hypertension, other Psychiatric history: no psych history - Past Surgical History Surgical History: cholecystectomy, knee replacement, orthopedic, other, prostatectomy, other - Social History Smoking Status: Never smoker Smokeless Tobacco Status: No Alcohol use: none Drug use: none Medications and Allergies Allopurinol [Zyloprim] 100 mg PO QAM 09/26/15 [History] Aspirin 81 mg PO QAM 09/26/15 [History] Tamsulosin [Flomax] 0.4 mg PO DAILY #30 capsule 09/29/15 [Rx] Atorvastatin [Lipitor] 40 mg PO HS 01/09/17 [History] Glimepiride [Amaryl] 4 mg PO DAILY 01/09/17 [History] LevETIRAcetam [Keppra] 500 mg PO BID 01/09/17 [History] Metoprolol [Lopressor] 25 mg PO BID 01/09/17 [History] Citalopram [CeleXA] 20 mg PO DAILY 05/26/17 [History] Gabapentin [Neurontin] 100 mg PO TID 05/26/17 [History] risperiDONE [RisperDAL] 1 mg PO DAILY 05/26/17 [History] DULoxetine [Cymbalta] 30 mg PO DAILY 06/28/17 [History] traZODone [TraZODone] 150 mg PO HS 06/28/17 [History] Allergies Sulfa (Sulfonamide Antibiotics) Allergy (Verified 09/26/15 17:31) Rash morphine Adverse Reaction (Verified 09/26/15 17:31) Vomiting ROS unobtainable: due to mental status All Systems: A 10-system review of systems was performed and is negative for pertinent findings except as documented above in the HPI. Physical Examination - Vital Signs Vital Signs: Initial Vital Signs Temp Pulse Resp BP Pulse Ox 98.3 F 114 20 111/68 95 06/28/17 17:37 06/28/17 17:37 06/28/17 17:37 06/28/17 17:37 06/28/17 17:37 - Exam Exam: Neurologic examination today finds a gentleman to be awake and alert. He does make eye contact, however his speech is jargon. Some of it is intelligible but frequently there is jargon and word salad with components of both expressive and receptive aphasia. He is not however encephalopathic today. He makes eye contact, he does follow some simple commands however is apraxic with others. Cranial nerves II through XII are intact. He was able to move all 4 extremities however is reluctant to move the right leg. He has gouty swelling of the right knee as well as inflammation of both great toes perhaps due to gout. Sensory exam finds he withdraws symmetrically to noxious stim. Deep tendon reflexes-no long tract signs are present. Results - Laboratory Findings CBC and BMP: 06/30/17 05:04 06/30/17 05:04 Abnormal lab findings: Abnormal lab results RBC 3.58 M/mcL (4.19-5.50) L 06/30/17 05:04 Hgb 10.7 g/dL (12.9-16.9) L 06/30/17 05:04 Hct 33.5 % (37.5-50.1) L 06/30/17 05:04 ESR 37 mm/hr (0-10) H 06/30/17 05:04 Creatinine 1.34 mg/dL (0.72-1.25) H 06/30/17 05:04 Est GFR (Non-Af Amer) 51 (> 60) L 06/30/17 05:04 Glucose 120 mg/dL (70-99) H 06/30/17 05:04 POC Glucose 178 (58-89) H 06/29/17 23:40 Hemoglobin A1c 8.0 % (-5.6) H 06/28/17 18:16 C-Reactive Protein 174 mg/L (Less than 5) H 06/30/17 05:04 Fluid Appearance Cloudy (Clear) A 06/30/17 12:04 Consult Discharge Plan - Plan Referrals: Haresh Ruiz DO [Partnered Physician] - 07/22/17 3:30 pm NONE,PCP [Primary Care Provider] -
[2017-06-30] MEDS: traZODone 50 MG TABLET PO SCH (21:02)
[2017-07-01] MEDS: Insulin LISPRO 300 UNITS/3 ML VIAL SQ SCH ×5 (00:37→23:26)
[2017-07-01] MEDS: 0.9 % Sodium Chloride 1,000 ML IVC SCH ×2 (03:42→13:03)
[2017-07-01] MEDS: *HR* Metoprolol 5 MG/5 ML VIAL IVP SCH ×4 (05:03→23:29)
[2017-07-01 06:28] LABS: Basophils % 0.3 %; Eosinophils # 0.2 K/mcL (0.0-0.6); Eosinophils % 2.2 %; Hematocrit 31.8 % (37.5-50.1); Hemoglobin 10.7 g/dL (12.9-16.9); Immature Granulocytes % 0.4 % (0-4); Immature Platelets 2.7 % (1.1-6.1); Lymphocytes # 1.7 K/mcL (0.6-4.6); Lymphocytes % 18.1 %; Mean Corpuscular HGB Conc 33.6 g/dL (31.6-35.5); Mean Corpuscular Hemoglobin 30.3 pg (28.0-33.3); Mean Corpuscular Volume 90.1 fL (83.0-100.0); Mean Platelet Volume 10.3 fL (9.4-12.4); Monocytes % 10.7 %; Neutrophils # 6.6 K/mcL (1.6-8.9); Platelet Count 221 K/mcL (140-400); Red Blood Count 3.53 M/mcL (4.19-5.50); Red Cell Distribution Width 12.9 % (11.5-14.5); Segmented Neutrophils % 68.3 %
[2017-07-01 06:36] LABS: BUN/Creatinine Ratio 22 (6-26); Blood Urea Nitrogen 22 mg/dL (8-26); Calcium 8.4 mg/dL (8.6-10.8); Carbon Dioxide 25 mEq/L (19-29); Chloride 107 mEq/L (98-109); Glucose 138 mg/dL (70-99); Osmolality,Calculated 292 (280-300); Potassium 4.4 mEq/L (3.5-4.5); Sodium 138 mEq/L (136-145); eGFR For African Americans > 60 (> 60); eGFR For Non-African Americans > 60 (> 60)
--- NOTE | 2017-07-01 08:19 | Rheumatology Progress Note ---
<Eder Fitzpatrick - Last Filed: 07/01/17 08:32> Date of Encounter: 07/01/17 Time of Encounter: 08:14 Rheumatology Assess and Plan (1) Knee pain, right Current Visit: Yes Status: Acute Mr. Abdul an 82yo Male with a hx of Gout + tophi, HTN, DM and ONUR on CKD who presents with AMS and a right edematous knee that is painful and warm to the touch. Uric acid 5.8, with previous hx of elevation to 10.0 ESR >170 with recent hx of a normal ESR. - Currently not on his home Allopurinol. Right knee Synovial fluid: Cloudy fluid, RBC 0.013, Nucleated cells 3808, Seg Neutrophil 98%, Lymphocytes 2%, Fluid crystals: none seen. Gram stain Preliminary: no growth. DDX: Gout arthritis, septic joint, CPPD. - Low suspicion for septic arthritis as the patient is not ill appearing, no fever, elevation in WBC or other concerning findings. Blood cultures were negative. Plan: - If synovial fluid comes back negative for bacterial growth then a steroid injection would be beneficial for symptom control - Will not start Colchicine at this time as the suspected Gout attack has been around greater than 48 hours. Continue Prednisone 40mg PO daily. - Advised patient's family to follow up in the outpatient setting. Qualifiers: Chronicity: acute Qualified Code(s): M25.561 - Pain in right knee (2) Type 2 diabetes mellitus Current Visit: Yes Status: Acute Controlled on inpatient regimen. Will defer management to primary team. Qualifiers: Diabetes mellitus complication status: with unspecified complications Diabetes mellitus skilled nursing insulin use: without skilled nursing use Qualified Code( s): E11.8 - Type 2 diabetes mellitus with unspecified complications (3) Chronic kidney disease, stage III (moderate) Current Visit: Yes Status: Chronic ONUR on CKD resolving. Creatinine improved from 1.55 to 1.02 with current GFR > 60. calculated Osmolality 292 - Continue monitoring renal function. (4) Dementia Current Visit: Yes Status: Chronic Chronic hx of dementia, patient seen by neurology. appears to be at baseline metal status. Qualifiers: Dementia type: unspecified type Dementia behavioral disturbance: without behavioral disturbance Qualified Code(s): F03.90 - Unspecified dementia without behavioral disturbance (5) Atrial fibrillation with RVR Current Visit: Yes Status: Resolved Currently A-fib with appropriate ventricular rate. Patient is asymptomatic at this time. - Continue current management. (6) CVA (cerebrovascular accident) Current Visit: No Status: Acute Known hx of cerebral infarcts. CT and MRI without significant findings for bleed or new stroke. 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 Current Uric acid is 5.8. To be effective in reducing Tophi size and prevent further gouty attacks, the Uric acid needs to below 6.0 and even lower to improve risk of acute gout flare. - Once patient is stable and acute gout attack has resolved he may restart in Allopurinol. Qualifiers: Gout site: unspecified site Gout etiology: unspecified cause Chronicity: chronic Presence of tophus: with tophus Qualified Code(s): M1A.9XX1 - Chronic gout, unspecified, with tophus (tophi) - Subjective Interval history: Mr. Abdul has been seen and evaluated at patient bedside this morning. He remains confused and talks about trips he has taken in the middle of the evening , there is no family at bedside. No acute events over night. He appears to be moving his right LE with less painful restriction. He is in a good mood and denies any other discomforts outside of his right knee hurting. Exam Vital Signs, Last 4 Hours Temp Pulse Resp BP Pulse Ox 07/01/17 07:52 97.8 F 83 16 163/78 92 Exam: Gen: Alert, awake, interactive, oriented to self only. HEENT: NC/AD,Pupils equal and reactive to light, oral mucous moist, neck supple and midline without any lymphadenopathy. Chest: Symmetric bilaterally correlated with respiratory effort. Cardiac:irregularly irregular. No murmurs or gallops are appreciated. bilateral LE pulses 2+ Respiratory: CTA GI:soft, nontender to palpation, + BS, no appreciated hepatospleenomegaly on examination. No abdominal wall erythema. MSK: right olecronon bursa is enlarged, right PCP joint with mild sinovitis. right knee is edematous, warm to palpation and tender to mild palpation or limb movement. 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 Skin: No signs of erythema, there was appreciated edema and warmth to the right knee and absent erythema, edema or warmth to the left knee. His bilateral great toes had large nodules involving the joint spaces ( tophi) without erythema, edema or warmth. Nails: no pitting or hemorrhaging appreciated on exam. Neuro: AOX1 Objective Data 07/01/17 06:15 07/01/17 06:15 All other labs normal. Consult Discharge Plan - Plan Referrals: Haresh Ruiz, [Partnered Physician] - 07/22/17 3:30 pm NONE,PCP [Primary Care Provider] - <Haresh Ruiz - Last Filed: 07/01/17 19:40> Date of Encounter: 07/01/17 Exam Vital Signs, Last 4 Hours Temp Pulse Resp BP Pulse Ox 07/01/17 18:50 97.6 F 62 15 138/82 93 07/01/17 17:45 97.8 F 124 18 163/91 94 07/01/17 15:41 97.6 F 91 17 159/91 98 Objective Data 07/01/17 06:15 07/01/17 06:15 All other labs normal. - Attending Attestation I examined this patient and my medical decision making was reviewed with the resident physician. I agree with the documented findings, disposition and treatment as described with these exceptions. Synovial fluid with PMN predominance but not many WBCs. No bacteria on gram stain and cultures negative. Suspicion for septic arthritis very low. I suspect resolving gouty arthritis. Given monoarthritis, inject with kenalog 40 mg today. If improved tomorrow, could decrease prednisone to 10 mg daily x 4 more days to avoid elevated blood glucose levels. Would restart allopurinol in outpatient setting; would be ideal to have uric acid in about 1 week to hopefully capture more accurate levels. Given tophaceous deposits, may set goal uric acid level lower but will further discuss as outpatient. I have already set up an outpatient appointment and discussed this with .
[2017-07-01] MEDS ORDERED: predniSONE 20 MG TABLET PO SCH (09:00)
[2017-07-01] MEDS ORDERED: Lidocaine 1% 20 ML MDV INFILT ONE (10:15)
--- NOTE | 2017-07-01 13:46 | Internal Med Progress Note ---
Date of Encounter: 07/01/17 Time of Encounter: 09:00 - Assessment and plan (1) Confabulation Current Visit: Yes Status: Chronic Assessment and plan: Patient speaks incessantly. He states that he needs to go home and get clothing. He says it been gone too long his is going to leave him. His speech is for the most part, incoherent and not relevant to questions being asked. He is unable to follow commands. She has been seen by neurology, they have signed off. There is no further testing recommended and Dr. Guzman felt that he most likely has baseline dementia, perhaps a sundowning component, perhaps a septic joint or viral syndrome. There is no leukocytosis or fever. Urine is ordered and pending. Will continue to monitor. (2) Gout of knee Current Visit: No Status: Suspected Assessment and plan: Uric acid 5.8. After acute episode, pt will need to be started on a higher dose of Allopurinol to lower uric acid level below 4. 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 Continue home medications. 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 MRI negative for acute infarct. Brain MRI 06/29/17 17:38 IMPRESSION: Remote insult in the left temporal lobe with associated encephalomalacia and gliosis. There is also associated multifocal calcification and multifocal hemosiderin deposition. There is also a suggestion of a small amount of left inferior lateral frontal lobe encephalomalacia with gliosis. 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 Renal function WNL. Continue to monitor labs and avoid nephrotoxins and NSAIDs. (6) Dementia Current Visit: Yes Status: Chronic Assessment and plan: Continue to monitor. Pt is close to nurse's station and is on fall precautions. Qualifiers: Dementia type: unspecified type Dementia behavioral disturbance: without behavioral disturbance Qualified Code(s): F03.90 - Unspecified dementia without behavioral disturbance (7) Diabetes mellitus Current Visit: No Status: Chronic Assessment and plan: Continue SSI, accuchecks achs, and diabetic diet. Qualifiers: Diabetes mellitus type: type 2 Diabetes mellitus complication status: with kidney complications Diabetes mellitus complication detail: with chronic kidney disease Diabetes mellitus custodial insulin use: without producer use Chronic kidney disease stage: stage 3 (moderate) Qualified Code(s): E11.22 - Type 2 diabetes mellitus with diabetic chronic kidney disease; N18.3 - Chronic kidney disease, stage 3 (moderate) (8) Knee pain, right Current Visit: Yes Status: Acute Assessment and plan: Right knee Synovial fluid: Cloudy fluid, RBC 0.013, Nucleated cells 3808, Seg Neutrophil 98%, Lymphocytes 2%, Fluid crystals: none seen. Gram stain Preliminary: no growth. Right knee remains red, swollen, and painful. Pt with increasing pain with passive ROM, pt states he cannot move it independently. Knee was injected by rheumatology today. Will continue to monitor and rheumatology remains on board. Qualifiers: Chronicity: acute Qualified Code(s): M25.561 - Pain in right knee (9) Atrial fibrillation with RVR Current Visit: Yes Status: Resolved Assessment and plan: Apical and radial irregular. Monitor shows a-fib. Pt rate controlled with Lopressor. He is not anticoagulated due to prior hemorrhagic stroke. (10) DVT prophylaxis Current Visit: Yes Status: Acute Assessment and plan: Pharmacologic prophylaxis contraindicated secondary to history of hemorrhagic stroke, MRI pending. ICD's ordered. - Subjective Interval history: Patient was seen and assessed at 9 AM. He is alert, oriented to name only, he is eating breakfast independently. Patient is not following commands today, he is constantly talking. He does in a roundabout way answer some questions. He remembers the resident being in to see him for his knee and states, "that boy poked a foot long nail into my knee." Patient denies pain. - Constitutional Vitals: Temp Pulse Resp BP Pulse Ox 97.9 F 76 16 158/92 98 07/01/17 11:25 07/01/17 11:25 07/01/17 11:25 07/01/17 11:25 07/01/17 11:25 General appearance: Present: cooperative, A&O X 1, mild distress, pleasant, no acute distress. Absent: answers questions appropriately - Head Head exam: Present: normal inspection - Eye Eye exam: Present: normal appearance, conjuntiva pink - ENT ENT exam: Present: mucous membranes moist, normal exam, normal external ear exam - Neck Neck exam general surgery: Present: normal inspection. Absent: lymphadenopathy , tenderness - Respiratory Respiratory exam: Present: decreased breath sounds, CTAB. Absent: chest wall tenderness, rales, respiratory distress, rhonchi, stridor, wheezes - Cardiovascular Cardiovascular exam: Present: irregular rhythm. Absent: clicks, diastolic murmur, gallop, JVD, systolic murmur - GI/Abdominal GI/Abdominal exam: Present: distended, normal bowel sounds, soft. Absent: guarding, hepatomegaly, tenderness - Extremities Exam Extremities exam: Present: joint swelling, tenderness, warm, radial pulses palpable and symmetrical. Absent: normal capillary refill, normal inspection, mottling, pedal edema - Neurological Exam Neurological exam: Present: alert, altered, no focal deficits. Absent: oriented X3, facial droop, speech deficit - Skin Skin exam: Present: dry, intact, normal color, warm. Absent: rash, urticaria Internal Medicine: Result - Labs CBC & Chem 7: 07/01/17 06:15 07/01/17 06:15 Labs: Short CBC 07/01/17 Range/Units 06:15 WBC 9.6 (4.3-11.1) K/mcL Hgb 10.7 L (12.9-16.9) g/dL Hct 31.8 L (37.5-50.1) % Plt Count 221 (140-400) K/mcL Neutrophils # 6.6 (1.6-8.9) K/mcL BMP 07/01/17 06:15 Sodium 138 Potassium 4.4 Chloride 107 Carbon Dioxide 25 BUN 22 Creatinine 1.02 Glucose 138 H Calcium 8.4 L Consult Discharge Plan - Plan Referrals: Haresh Ruiz DO [Partnered Physician] - 07/22/17 3:30 pm NONE,PCP [Primary Care Provider] -
[2017-07-01 16:29] LABS: Bilirubin,Urine Negative (Negative); Blood,Urine Negative (Negative); Clarity,Urine Clear (Clear); Color,Urine Yellow (Yellow); Glucose,Urine (UA) 500 mg/dL (Normal); Ketones,Urine Negative (Negative); Leukocyte Esterase,Urine Negative (Negative); Nitrite,Urine Negative (Negative); PH,Urine 5.5 pH Units (5.0-8.0); Protein,Urine 30 mg/dL (Neg-Trace); Specific Gravity,Urine 1.021 (1.010-1.025); Urobilinogen,Urine Normal (Normal)
[2017-07-01 16:32] LABS: Bacteria,Urine None Seen per hpf (None-Few); Hyaline Casts,Urine None Seen per lpf (None-Few); Squamous Epithelial Cell,Urine Moderate per lpf (None-Few); WBC,Urine 0-3 per hpf (0-3)
--- NOTE | 2017-07-01 17:44 | Event Note ---
<Eder Fitzpatrick - Last Filed: 07/01/17 17:45> Date of Encounter: 07/01/17 Time of Encounter: 10:00 PRE-OP DIAGNOSIS: Painful right knee, (likely gouty arthritis) POST-OP DIAGNOSIS: Same PROCEDURE: joint injection Performing Physician: Eder Fitzpatrick DO Supervising Physician (if applicable): Dr. Ruiz Dose: 1ml 1% Lidocaine 1ml Steroid 40mg/mL Triamcinolone acetonide Procedure: The area was prepped in the usual sterile manner. The needle was inserted into the affected area and the steroid was injected. There were no complications during this procedure. Followup: The patient tolerated the procedure well without complications. Standard post-procedure care is explained and return precautions are given. This procedure was directly observed by Dr. Ruiz my over seeing physician. <Haresh Ruiz - Last Filed: 07/02/17 07:13> Date of Encounter: 07/02/17 I examined this patient and my medical decision making was reviewed with the resident physician. I agree with the documented findings, disposition and treatment as described with these exceptions. I was present for the entire procedure, no complications.
--- NOTE | 2017-07-01 17:45 | Event Note ---
<Eder Fitzpatrick - Last Filed: 07/01/17 17:44> Date of Encounter: 07/01/17 Time of Encounter: 10:00 PRE-OP DIAGNOSIS: Monoarthritis POST-OP DIAGNOSIS: Same PROCEDURE: Right knee joint Aspiration Performing Physician: Eder Fitzpatrick DO Supervising Physician (if applicable): Dr. Haresh Ruiz Procedure and risks vs. benefits were nn discussed with Mrs. Katelyn Abdul patients who provided verbal consent to proceed with the procedure. Procedure: The area was prepped in the usual sterile manner. A time out was taken to properly review the procedure to be performed and confirm the patients identity. The needle was inserted into the affected area and roughly 50ml of yellow/sanguineous synovial fluid was aspirated. There were no complications during this procedure. Labs ordered: none Followup: The patient tolerated the procedure well without complications. Standard post-procedure care is explained and return precautions are given. This procedure was performed under the direct supervision of Dr. Ruiz who was present throughout the procedure. <Haresh Ruiz - Last Filed: 07/02/17 07:12> Date of Encounter: 07/02/17 I examined this patient and my medical decision making was reviewed with the resident physician. I agree with the documented findings, disposition and treatment as described with these exceptions. Fluid clear and blood-tinged and did not appear inflammatory I was present for the entire procedure and there were no complications.
[2017-07-01] MEDS: traZODone 50 MG TABLET PO SCH (20:11)
[2017-07-02] MEDS: 0.9 % Sodium Chloride 1,000 ML IVC SCH (03:54)
[2017-07-02 05:29] LABS: Basophils % 0.1 %; Hematocrit 33.1 % (37.5-50.1); Immature Granulocytes % 0.4 % (0-4); Lymphocytes # 0.8 K/mcL (0.6-4.6); Lymphocytes % 8.3 %; Mean Corpuscular HGB Conc 33.2 g/dL (31.6-35.5); Mean Corpuscular Hemoglobin 30.1 pg (28.0-33.3); Mean Corpuscular Volume 90.7 fL (83.0-100.0); Mean Platelet Volume 10.6 fL (9.4-12.4); Monocytes # 0.4 K/mcL (0.0-1.3); Monocytes % 3.9 %; Neutrophils # 8.3 K/mcL (1.6-8.9); Platelet Count 237 K/mcL (140-400); Red Blood Count 3.65 M/mcL (4.19-5.50); Red Cell Distribution Width 12.5 % (11.5-14.5); Segmented Neutrophils % 87.3 %
[2017-07-02 05:38] LABS: BUN/Creatinine Ratio 22 (6-26); Blood Urea Nitrogen 24 mg/dL (8-26); Calcium 9.1 mg/dL (8.6-10.8); Carbon Dioxide 25 mEq/L (19-29); Chloride 106 mEq/L (98-109); Glucose 259 mg/dL (70-99); Osmolality,Calculated 295 (280-300); Potassium 4.7 mEq/L (3.5-4.5); Sodium 136 mEq/L (136-145); eGFR For African Americans > 60 (> 60); eGFR For Non-African Americans > 60 (> 60)
[2017-07-02] MEDS: *HR* Metoprolol 5 MG/5 ML VIAL IVP SCH ×2 (05:47→11:46)
[2017-07-02] MEDS: Insulin LISPRO 300 UNITS/3 ML VIAL SQ SCH ×2 (05:47→08:51)
[2017-07-02] MEDS ORDERED: predniSONE 10 MG TABLET PO SCH (09:00)
--- NOTE | 2017-07-02 09:06 | Rheumatology Progress Note ---
Date of Encounter: 07/02/17 Time of Encounter: 09:00 Rheumatology Assess and Plan (1) Effusion, right knee Current Visit: Yes Status: Acute Improved. Gram stain negative for bacteria, cell count with diff with elevated PMNs but WBCs mildly inflammatory. Cultures thus far negative. Suspicion for infection very low. 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 Good response to intra-articular corticosteroid injection. Given elevated glucose, decrease prednisone to 10 mg x 4 more days and then stop. Reevaluate in 2-3 weeks in ambulatory setting. (2) Chronic tophaceous gout Current Visit: Yes Status: Acute Has chronic tophaceous gout. Uric acid checked in flare so likely falsely low. Will restart allopurinol once flare resolved in 1 week otherwise can do so in outpatient setting. I have discussed gout management with and she is willing to follow-up as outpatient. - Subjective Interval history: Since yesterday, he tolerated the corticosteroid injection well. He denies pain and shows me how he can flex and extend his knee without any problems. He has not had any fevers. Blood glucose fasting is elevated today. The remainder of the review of systems cannot be obtained due to dementia but declines SOB or chest pain. Exam Vital Signs, Last 4 Hours Temp Pulse Resp BP Pulse Ox 07/02/17 07:12 97.6 F 87 14 187/115 95 07/02/17 05:47 76 156/70 Exam: Constitutional - no acute distress, conversant Eyes - Conjunctiva clear and lids without lesions Respiratory - Unlabored breathing, clear to auscultation bilaterally without wheezes and crackles on anterior exam Chest - S1S2 RRR without murmurs or extra heart sounds MSK - Gait not assessed as he is in bed. Medium effusion of right knee without pain on Active/Passive ROM or palpation. Skin - No erythema overlying right knee. Psych - Full affect, oriented only to person Objective Data 07/02/17 03:39 07/02/17 03:39 All other labs normal. Consult Discharge Plan - Plan Referrals: Haresh Ruiz DO [Partnered Physician] - 07/22/17 3:30 pm NONE,PCP [Primary Care Provider] -
--- NOTE | 2017-07-02 12:53 | Internal Med Progress Note ---
Date of Encounter: 07/02/17 Time of Encounter: 12:20 - Assessment and plan (1) Confabulation Current Visit: Yes Status: Chronic Assessment and plan: Patient speaks incessantly. His speech is for the most part, incoherent and not relevant to questions being asked. He is following commands a little bit better today. She has been seen by neurology, they have signed off. There is no further testing recommended and Dr. Guzman felt that he most likely has baseline dementia, perhaps a sundowning component, and septic joint and infection have been ruled out. There is no leukocytosis or fever. Urine was negative and no culture was indicated. Will continue to monitor. (2) Gout of knee Current Visit: No Status: Suspected Assessment and plan: Patient has been seen by rheumatology, he has had 2 knee aspirations, as well as an injection of Kenalog. Rheumatology recommended decreasing prednisone from 40 mg a day to 10 mg a day. They have signed off and I appreciate their consultation and recommendations. Patient will follow up in the office after he is no longer acutely ill and patient will be started on Allopurinol. 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 Continue home medications. Patient has been hypertensive today, home dose of Lopressor has been restarted, as well as 2.5 mg of lisinopril by mouth twice a day. Continue to monitor vital signs. 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 MRI negative for acute infarct. Brain MRI 06/29/17 17:38 IMPRESSION: Remote insult in the left temporal lobe with associated encephalomalacia and gliosis. There is also associated multifocal calcification and multifocal hemosiderin deposition. There is also a suggestion of a small amount of left inferior lateral frontal lobe encephalomalacia with gliosis. 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 Renal function WNL. Continue to monitor labs and avoid nephrotoxins and NSAIDs. (6) Dementia Current Visit: Yes Status: Chronic Assessment and plan: Continue to monitor. Pt is close to nurse's station and is on fall precautions. Qualifiers: Dementia type: unspecified type Dementia behavioral disturbance: without behavioral disturbance Qualified Code(s): F03.90 - Unspecified dementia without behavioral disturbance (7) Diabetes mellitus Current Visit: No Status: Chronic Assessment and plan: Continue SSI, accuchecks achs, and diabetic diet. Qualifiers: Diabetes mellitus type: type 2 Diabetes mellitus complication status: with kidney complications Diabetes mellitus complication detail: with chronic kidney disease Diabetes mellitus termite control technician insulin use: without detention use Chronic kidney disease stage: stage 3 (moderate) Qualified Code(s): E11.22 - Type 2 diabetes mellitus with diabetic chronic kidney disease; N18.3 - Chronic kidney disease, stage 3 (moderate) (8) Knee pain, right Current Visit: Yes Status: Acute Assessment and plan: Right knee Synovial fluid: Cloudy fluid, RBC 0.013, Nucleated cells 3808, Seg Neutrophil 98%, Lymphocytes 2%, Fluid crystals: none seen. Gram stain Preliminary: no growth. Right knee remains red, swollen, and painful. Pt is able to move right leg independently. Knee was injected by rheumatology yesterday. Will continue to monitor. Qualifiers: Chronicity: acute Qualified Code(s): M25.561 - Pain in right knee (9) Atrial fibrillation with RVR Current Visit: Yes Status: Resolved Assessment and plan: Apical and radial irregular. Monitor shows a-fib. Pt rate controlled with Lopressor. He is not anticoagulated due to prior hemorrhagic stroke. (10) DVT prophylaxis Current Visit: Yes Status: Acute Assessment and plan: Pharmacologic prophylaxis contraindicated secondary to history of hemorrhagic stroke, MRI pending. ICD's ordered. - Time Spent With Patient less than 15 minutes - Subjective Interval history: Patient was seen and assessed at 1220 today. There are multiple family members in the room. At times he seemed to be coherent, at other times he was more confused. He did tell me that he did not like the physical therapy control and that he was mean to her and said that he is afraid he is going to hurt her when he is punching and kicking. He recognized his , but was unaware of her name. Today he appeared to be following commands a little bit better and is able to move his right leg and bend his knee. He does say that it feels better. He was seen by rheumatology today and his steroids have been decreased. He will follow-up in the office to increase his allopurinol once he is not acutely ill. Family is aware of weight for ECF placement for therapy. They denied questions or concerns. - Constitutional Vitals: Temp Pulse Resp BP Pulse Ox 97.8 F 81 20 170/87 96 07/02/17 11:25 07/02/17 11:25 07/02/17 11:25 07/02/17 11:25 07/02/17 11:25 General appearance: Present: cooperative, A&O X 1, mild distress, pleasant, no acute distress. Absent: answers questions appropriately - Head Head exam: Present: normal inspection, normocephalic - Eye Eye exam: Present: normal appearance, conjuntiva pink - ENT ENT exam: Present: mucous membranes moist, normal exam, normal external ear exam - Neck Neck exam general surgery: Present: normal inspection. Absent: lymphadenopathy , tenderness - Respiratory Respiratory exam: Present: decreased breath sounds, CTAB. Absent: rales, respiratory distress, rhonchi, stridor, wheezes - Cardiovascular Cardiovascular exam: Present: RRR, +S1, +S2. Absent: clicks, diastolic murmur, gallop, systolic murmur - GI/Abdominal GI/Abdominal exam: Present: normal bowel sounds, soft. Absent: distended, hernia, tenderness - Extremities Exam Extremities exam: Present: normal capillary refill, warm, radial pulses palpable and symmetrical. Absent: full ROM, pedal edema, tenderness - Neurological Exam Neurological exam: Present: alert, altered, no focal deficits, strengths equal and symetr throughout. Absent: oriented X3, facial droop, speech deficit - Skin Skin exam: Present: dry, intact, warm. Absent: rash, urticaria Internal Medicine: Result - Labs CBC & Chem 7: 07/02/17 03:39 07/02/17 03:39 Labs: Short CBC 07/02/17 Range/Units 03:39 WBC 9.5 (4.3-11.1) K/mcL Hgb 11.0 L (12.9-16.9) g/dL Hct 33.1 L (37.5-50.1) % Plt Count 237 (140-400) K/mcL Neutrophils # 8.3 (1.6-8.9) K/mcL BMP 07/02/17 03:39 Sodium 136 Potassium 4.7 H Chloride 106 Carbon Dioxide 25 BUN 24 Creatinine 1.09 Glucose 259 H Calcium 9.1 Urine 07/01/17 Range/Units 16:10 Urine Color Yellow (Yellow) Urine Clarity Clear (Clear) Urine pH 5.5 (5.0-8.0) pH Units Ur Specific [place] 1.021 (1.010-1.025) Urine Protein 30 H (Neg-Trace) mg/dL Urine Glucose (UA) 500 H (Normal) mg/dL Consult Discharge Plan - Plan Referrals: Haresh Ruiz DO [Partnered Physician] - 07/22/17 3:30 pm NONE,PCP [Primary Care Provider] -
--- NOTE | 2017-07-02 14:41 | Physician Discharge Referral ---
ExtendedCare Referral Info Provider in Charge after Transfer: PCP Institutional Level of Care: Skilled - Diagnosis (1) Confabulation Priority: Primary Status: Chronic (2) Gout of knee Priority: Secondary Status: Suspected (3) Accelerated essential hypertension Priority: Secondary Status: Acute (4) CVA (cerebrovascular accident) Priority: Secondary Status: Acute (5) Chronic kidney disease, stage III (moderate) Priority: Secondary Status: Chronic (6) Dementia Priority: Secondary Status: Chronic (7) Diabetes mellitus Priority: Secondary Status: Chronic (8) Knee pain, right Priority: Secondary Status: Acute (9) Atrial fibrillation with RVR Priority: Secondary Status: Resolved (10) DVT prophylaxis Priority: Secondary Status: Acute Expected Duration of Placement: 2-4 weeks Prognosis: Fair Aware of Diagnosis: Family - Transfer Medications Home Medications: Allopurinol [Zyloprim] 100 mg PO QAM 09/26/15 [History] Aspirin 81 mg PO QAM 09/26/15 [History] Tamsulosin [Flomax] 0.4 mg PO DAILY #30 capsule 09/29/15 [Rx] Atorvastatin [Lipitor] 40 mg PO HS 01/09/17 [History] Glimepiride [Amaryl] 4 mg PO DAILY 01/09/17 [History] LevETIRAcetam [Keppra] 500 mg PO BID 01/09/17 [History] Metoprolol [Lopressor] 25 mg PO BID 01/09/17 [History] Citalopram [CeleXA] 20 mg PO DAILY 05/26/17 [History] Gabapentin [Neurontin] 100 mg PO TID 05/26/17 [History] risperiDONE [RisperDAL] 1 mg PO DAILY 05/26/17 [History] DULoxetine [Cymbalta] 30 mg PO DAILY 06/28/17 [History] traZODone [TraZODone] 150 mg PO HS 06/28/17 [History] Allergies/Adverse Reactions: 3 Allergy/AdvReac Type Severity Reaction Status Date / Time Sulfa (Sulfonamide Allergy Rash Verified 09/26/15 17:31 Antibiotics) morphine AdvReac Vomiting Verified 09/26/15 17:31 - Respiratory Orders Oxygen / L per min Smoking Cessation: Smoking cessation has been advised. For more information, call the [place] Tobacco Quit Line at 2-672-FJLM-NOW. - Lab Orders Lab Orders: CBC, U/A, CXR yearly - Ancillary Orders May use pressure relief devices daily prn, May go on KAYDEN w/family/respon alliance party w /meds at nurse discretion PRN, May consult with Dentist, Cost Accounting Analyst, Obedience Trainer PRN - Advance Directives Code Status: DNR-Comfort Care - Mobility Orders Other - Rehabiliation Orders Rehab Potential: Good Rehab Orders: ROM Exercises Other: Per recommendation of OT, continue to increase endurance, strength and I in ADLS. They recommend increasing OT to 5x/week. - Treatments Skin tear care topically daily PRN per policy, May check for fecal impaction rectally daily PRN, Fleet enema rectally every other day PRN cleansing purposes - Diet Orders Regular, Mechanical Soft CERTIFICATION: I certify that the transfer of the above named patient to an Extended Care Facility is necessary for the continuing treatment of the diagnosis listed. The above information is true and accurate reflection of patient's current condition. Confidential - Redisclosure prohibited without a patient's written consent.
[2017-07-02 14:57] VITALS: BP 167/99
--- NOTE | 2017-07-02 15:26 | Electrocardiograph Report ---
[address] [address] Test Date: 2017-07-01 Pat Name: Nataliia Abdul Department: 113 Room: 3B23 Gender: M Utilization Review Coordinator: : 1935 Requested By: Anyi Israel Order Number: [id number] Reading MD: Lupillo Tidwell MD Measurements Intervals [place] Rate: 120 P: NV: 0 QRS: -3 QRSD: 97 T: 146 QT: 307 QTc: 378 Interpretive Statements ATRIAL FIBRILLATION WITH RAPID VENTRICULAR RESPONSE WITH ABERRANT CONDUCTION OR VENTRICULAR PREMATURE COMPLEXES BASELINE ARTIFACT COMPLICATES ACCURATE INTERPRETATION Electronically Signed On 07-02-2017 15:25:19 EDT by Lupillo Tidwell MD
--- NOTE | 2017-07-02 17:03 | Discharge Summary ---
Date of Encounter: 07/02/17 Time of Encounter: 12:20 - Discharge Diagnosis (1) Confabulation Priority: Primary Status: Chronic Comments: Patient speaks incessantly. His speech is for the most part, incoherent and not relevant to questions being asked. He is following commands a little bit better today. She has been seen by neurology, they have signed off. There is no further testing recommended and Dr. Guzman felt that he most likely has baseline dementia, perhaps a sundowning component, and septic joint and infection have been ruled out. There is no leukocytosis or fever. Urine was negative and no culture was indicated. Will continue to monitor. (2) Gout of knee Priority: Secondary Status: Suspected Comments: Patient has been seen by rheumatology, he has had 2 knee aspirations, as well as an injection of Kenalog. Rheumatology recommended decreasing prednisone from 40 mg a day to 10 mg a day. They have signed off and I appreciate their consultation and recommendations. Patient will follow up in the office after he is no longer acutely ill and patient will be started on Allopurinol. 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 Continue home medications. Patient has been hypertensive today, home dose of Lopressor has been restarted, as well as 2.5 mg of lisinopril by mouth twice a day. 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 MRI negative for acute infarct. Brain MRI 06/29/17 17:38 IMPRESSION: Remote insult in the left temporal lobe with associated encephalomalacia and gliosis. There is also associated multifocal calcification and multifocal hemosiderin deposition. There is also a suggestion of a small amount of left inferior lateral frontal lobe encephalomalacia with gliosis. 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 Renal function WNL. Continue to monitor labs and avoid nephrotoxins and NSAIDs. (6) Dementia Priority: Secondary Status: Chronic Comments: Chronic. Progressive. Continue to monitor for safety. Qualifiers: Dementia type: unspecified type Dementia behavioral disturbance: without behavioral disturbance Qualified Code(s): F03.90 - Unspecified dementia without behavioral disturbance (7) Diabetes mellitus Priority: Secondary Status: Chronic Comments: Resume home medications. A1c 8.0%. Qualifiers: Diabetes mellitus type: type 2 Diabetes mellitus complication status: with kidney complications Diabetes mellitus complication detail: with chronic kidney disease Diabetes mellitus predatory animal exterminator insulin use: without [facility] use Chronic kidney disease stage: stage 3 (moderate) Qualified Code(s): E11.22 - Type 2 diabetes mellitus with diabetic chronic kidney disease; N18.3 - Chronic kidney disease, stage 3 (moderate) (8) Knee pain, right Priority: Secondary Status: Acute Comments: Right knee Synovial fluid: Cloudy fluid, RBC 0.013, Nucleated cells 3808, Seg Neutrophil 98%, Lymphocytes 2%, Fluid crystals: none seen. Gram stain Preliminary: no growth. Right knee remains red, swollen, and painful. Pt is able to move right leg independently. Knee was injected by rheumatology yesterday. Qualifiers: Chronicity: acute Qualified Code(s): M25.561 - Pain in right knee (9) Atrial fibrillation with RVR Priority: Secondary Status: Resolved Comments: Chronic a-fib. Rate controlled with Lopressor. He is not anticoagulated due to prior hemorrhagic stroke. (10) DVT prophylaxis Priority: Secondary Status: Acute - Discharge Medications Prescriptions: Lisinopril [Zestril] 2.5 mg PO BID #60 tab predniSONE [PredniSONE] 10 mg PO DAILY #10 tab Home Medications: Allopurinol [Zyloprim] 100 mg PO QAM 09/26/15 [History] Aspirin 81 mg PO QAM 09/26/15 [History] Tamsulosin [Flomax] 0.4 mg PO DAILY #30 capsule 09/29/15 [Rx] Atorvastatin [Lipitor] 40 mg PO HS 01/09/17 [History] Glimepiride [Amaryl] 4 mg PO DAILY 01/09/17 [History] LevETIRAcetam [Keppra] 500 mg PO BID 01/09/17 [History] Metoprolol [Lopressor] 25 mg PO BID 01/09/17 [History] Citalopram [CeleXA] 20 mg PO DAILY 05/26/17 [History] Gabapentin [Neurontin] 100 mg PO TID 05/26/17 [History] risperiDONE [RisperDAL] 1 mg PO DAILY 05/26/17 [History] DULoxetine [Cymbalta] 30 mg PO DAILY 06/28/17 [History] traZODone [TraZODone] 150 mg PO HS 06/28/17 [History] Lisinopril [Zestril] 2.5 mg PO BID #60 tab 07/02/17 [Rx] predniSONE [PredniSONE] 10 mg PO DAILY #10 tab 07/02/17 [Rx] Allergies/Adverse Reactions: 3 Allergy/AdvReac Type Severity Reaction Status Date / Time Sulfa (Sulfonamide Allergy Rash Verified 09/26/15 17:31 Antibiotics) morphine AdvReac Vomiting Verified 09/26/15 17:31 Procedures/tests Complete & Pending: Procedures Performed prior 72 hours Category Date Time Status MR head/brain wo con [MR] Stat MRI 06/29/17 17:38 Completed ECG 12 lead ECG [ECG] Routine Y 07/01/17 17:43 Completed Date of admission: 06/28/17 16:20 Primary care physician: PCP NONE Consults: 06/28/17 17:53 Consult to Speech Therapy [CONS] Routine Comment: Evaluate, develop and implement POC Reason for Consult: aphasic at baseline s/p CVA. Assess swallow and make diet recommendations Call Completed: Yes 06/28/17 21:01 Consult to Occupational Therapy [CONS] Routine Comment: Evaluate, develop and implement POC Reason for Consult: right leg pain Consult to Physical Therapy [CONS] Routine Comment: Evaluate, develop and implement POC Reason for Consult: right leg pain 06/29/17 10:20 Consult to Java Support Engineer [CONS] Routine Reason for SW Consult: discharg planning 06/29/17 17:39 Consult to Neurology [CONS] Routine Consulting Provider: Neurology [facility] Reason for Consult: Hx hem stroke in december with resultant word salad/ confabulation. Here for AMS- changed from his new baseline. MRI pending Time Notified: 17:40 Call Completed: Yes 06/29/17 17:52 Consult to Physician [CONS] Routine Consulting Provider: Haresh Ruiz Reason for Consult: right knee with large effusion. gout? please eval and advise, thanks. Will need called in am. Call Completed: No Discharging clinician: Marlin Acosta Anticipated date of discharge: 07/02/17 - Patient Status Disposition: Transfer LTC Condition: Good Functional capacity at discharge: uses cane/walker Overall status at discharge: patient is back to baseline - Discharge Instructions Follow Up With: Haresh Ruiz, [Partnered Physician] - 07/22/17 3:30 pm NONE,PCP [Primary Care Provider] - - Diet and Activity Activity: as per physical therapy Diet: advance to your usual diet Hospital course: Mr. Abdul is a 82 year old male with pmh of CVA with apahsia, dementia, a-fib, DMII, CHF, COPD who was transferred from [facility] for AMS. Pt normally is able to ambulate and feed himself and his states that he has not gotten out of bed and had refused to eat or drink for [address] in the ER was negative for acute abnormality. CXR was negative for acute process. UA negative for infection. Pt presented with mildly elevated creatinine, which is improving. Pt does have a-fib which is rate controlled with metoprolol, which he will continue. Pt also presented with right knee pain and swelling. He was seen by rheumatology and fluid was aspirated from knee and it was injected with Kenalog. Pt is taking Prednisone 10mg po daily for this. He will need to follow up with Dr. Conroy in the office to start on Allopurinol to lower Uric acid levels. Pt was also seen by neurology during admission. He had returned to baseline by the time he was assessed and no further testing was recommended. There may have been a sundowning component added to his dementia, and perhaps a viral syndrome. Septic joint was ruled out by culture and labs. Pt had a brain MRI that showed old infarct with associated encephalomalacia and gliosis, multiple prior infarcts, small vessel ischemic changes and no acute abnormality. There was no leukocytosis, fever, or sustained tachycardia, though he was in a-fib RVR in the ER. Most likely, this was just a progression of his disease. He has returned to his baseline and was able to answer some questions today and was able to follow some commands, which he had not been able to do previously since admission. Pt will be discharged to [facility] for rehab. He will continue his normal home medications and will be sent with prescriptions for Lisinopril for hypertension , and Prednisone for the knee swelling. He is ready and stable for disharge to [facility]. - Time Spent with Patient Total time spent providing and/or coordinating discharge services: Less than 30 minutes - Constitutional Vitals: Temp Pulse Resp BP Pulse Ox 98.4 F 101 16 167/99 93 07/02/17 14:57 07/02/17 14:57 07/02/17 14:57 07/02/17 14:57 07/02/17 14:57 General appearance: Present: cooperative, A&O X 1, mild distress, pleasant, no acute distress. Absent: answers questions appropriately - Head Head exam: Present: normal inspection - Eye Eye exam: Present: normal appearance, conjuntiva pink - ENT ENT exam: Present: mucous membranes moist, normal exam, normal external ear exam - Neck Neck exam general surgery: Absent: lymphadenopathy, tenderness - Respiratory Respiratory exam: Present: CTAB. Absent: chest wall tenderness, decreased breath sounds, rales, respiratory distress, rhonchi, stridor, wheezes, tachypnea - Cardiovascular Cardiovascular exam: Present: RRR, +S1, +S2. Absent: clicks, diastolic murmur, gallop, systolic murmur - GI/Abdominal GI/Abdominal exam: Present: distended, normal bowel sounds. Absent: hepatomegaly, soft, tenderness - Extremities Exam Extremities exam: Present: joint swelling, warm, radial pulses palpable and symmetrical. Absent: full ROM, pedal edema, tenderness - Neurological Exam Neurological exam: Present: alert, altered, oriented X3. Absent: no focal deficits, facial droop, speech deficit - Skin Skin exam: Present: dry, intact, normal color, warm. Absent: rash, urticaria
== END 2017-07-02 17:45 ==
LOC: 3BNU
PROVIDERS: ADMIT Internal Medicine Endocrinology, Diabetes & Metabolism; ATTEND Nurse Practitioner Family

== ENCOUNTER 2017-10-04 19:49 | Inpatient (IN) ==
[2017-10-04] MEDS ORDERED: *HR* Metoprolol 5 MG/5 ML VIAL IVP ONE (23:19)
[2017-10-04] MEDS ORDERED: Naloxone 0.4 MG/ML INJ IVP PRN (23:34)
[2017-10-04] MEDS ORDERED: *HR* HYDROcodone/Acet 5/325 mg TABLET PO PRN (23:40)
--- NOTE | 2017-10-04 23:53 | Internal Med History&Physical ---
<Yury Hills - Last Filed: 10/04/17 23:46> Date of Encounter: 10/04/17 Time of Encounter: 23:46 Assessment and Plan (1) Atrial fibrillation with RVR Current visit: Yes Status: Resolved paroxysmal a fib. A. fib RVR on arrival to [facility] He has had a decline in activity for the last week Patient on elequis and ASA, continue these medications On Cardizem gtt at rate of 5; titration protocol, titrate to rate below 80 continuous tele, and O2 monitoring Resume statin, beta yoshi, BEN inhibitor CBC, BMP in the morning (2) Diabetes mellitus type 2 with complications, uncontrolled Current visit: Yes Status: Acute stop oral hypoglycemic agents. Continue glargine at home dose, start LSSIC before meals and at bedtime Accu-Cheks. Qualifiers: Diabetes mellitus senior living insulin use: without termite technician use Qualified Code(s): E11.8 - Type 2 diabetes mellitus with unspecified complications; E11.65 - Type 2 diabetes mellitus with hyperglycemia; E11.65 - Type 2 diabetes mellitus with hyperglycemia; E11.65 - Type 2 diabetes mellitus with hyperglycemia; E11.65 - Type 2 diabetes mellitus with hyperglycemia (3) Accelerated essential hypertension Current visit: Yes Status: Chronic Remains hypertensive, SBP 180's Resume home beta yoshi, BEN inhibitor 5 mg metoprolol IV push now (4) Change in mental status Current visit: Yes Status: Acute Caregiver reports a change in mental status patient is lethargic and no longer participating in ADL's Appears to be failure to thrive; afib RVR can also be a component of decline h/o cva's does not appear to have had a new infarct, CT head no acute changes has some expressive aphasia but this appears to be his baseline per review of old records PT/OT and SS consult Qualifiers: Altered mental status type: unspecified Qualified Code(s): R41.82 - Altered mental status, unspecified Internal Medicine - H&P: HPI Chief complaint: AMS, HTN, AFIB Admitted From: Home Plans for Post Hospital Care: Home History of present illness: Mr. Abdul is a 82 year old male past medical history of arthritis, atrial fibrillation, cancer, CHF, COPD, coronary artery disease, CVA, diabetes, hypertension, Presents today with concerns for mental status changes, HTN and afib. All information obtained from chart review as the patient is unable to participate in exam d/t alteration in mental status. No caregivers at bedside. Report from [facility] indicates that he has been refusing to eat, drink or get out of bed. His home caregiver is concerned that this is a change from his baseline. It is reported that the patient is normally ambulatory and moderately verbal. There is no indication as to what his baseline mental status is. He had a recent CVA in 01/02 and another brain insult in 08.02. There is noted concern for some SOB and he was found to have afib RVR at [facility] as well as HTN. He is being admitted for further observation and control of afib and for evaluation of functional status for possible placement. Past Med Surg Social Fam HX - Past Medical History Medical history: arthritis, atrial fibrillation, cancer, CHF, COPD, coronary artery disease, CVA, dementia, diabetes, hyperlipidemia, hypertension, other Psychiatric history: no psych history - Past Surgical History Surgical History: cholecystectomy, knee replacement, orthopedic, other, prostatectomy, other - Social History Smoking Status: Never smoker Smokeless Tobacco Status: No Alcohol use: none Drug use: none - Additional Family History Additional family history: Unable to obtain due to mental status Internal Medicine - H&P: Meds Allopurinol [Zyloprim] 100 mg PO QAM 09/26/15 [History] Aspirin 81 mg PO QAM 09/26/15 [History] Tamsulosin [Flomax] 0.4 mg PO DAILY #30 capsule 09/29/15 [Rx] Atorvastatin [Lipitor] 40 mg PO HS 01/09/17 [History] Glimepiride [Amaryl] 4 mg PO DAILY 01/09/17 [History] LevETIRAcetam [Keppra] 500 mg PO BID 01/09/17 [History] Metoprolol [Lopressor] 25 mg PO BID 01/09/17 [History] Citalopram [CeleXA] 20 mg PO DAILY 05/26/17 [History] Gabapentin [Neurontin] 100 mg PO TID 05/26/17 [History] risperiDONE [RisperDAL] 2 mg PO HS 05/26/17 [History] DULoxetine [Cymbalta] 30 mg PO DAILY 06/28/17 [History] traZODone [TraZODone] 150 mg PO HS 06/28/17 [History] Lisinopril [Zestril] 2.5 mg PO BID #60 tab 07/02/17 [Rx] Apixaban [Eliquis] 2.5 mg PO BID 09/22/17 [History] HYDROcodone/Acet 5/325 mg [[place] 5-325 mg] 1 tab PO Q6H PRN 09/22/17 [History] Insulin Glargine [Lantus] 8 unit SQ QPM 09/22/17 [History] Insulin LISPRO [Humalog] 0 unit SQ QID 09/22/17 [History] predniSONE [PredniSONE] 5 mg PO DAILY 09/22/17 [History] Furosemide [Lasix] 20 mg PO DAILY 10/05/17 [History] 3 Allergy/AdvReac Type Severity Reaction Status Date / Time Sulfa (Sulfonamide Allergy Rash Verified 09/16/17 13:59 Antibiotics) morphine AdvReac Vomiting Verified 09/16/17 13:59 ROS unobtainable: due to mental status All Systems PM: A 10-system review of systems was performed and is negative for pertinent findings except as documented above in the HPI. - Constitutional Vitals: Temp Pulse Resp BP Pulse Ox 98.1 F 93 19 189/117 95 10/04/17 22:53 10/04/17 22:53 10/04/17 22:53 10/04/17 22:53 10/04/17 22:53 General appearance: Present: A&O X 1 Exam: Resting comfortably, appears to be in no distress, unable to follow commands - Head Head exam: Present: atraumatic, normocephalic - Neck Neck exam general surgery: Present: supple, trachea midline. Absent: lymphadenopathy - Respiratory Respiratory exam: Present: decreased breath sounds, CTAB, tachypnea. Absent: accessory muscle use, rales, rhonchi, wheezes - Cardiovascular Cardiovascular exam: Present: irregular rhythm, tachycardia. Absent: diastolic murmur, gallop, rubs, systolic murmur - GI/Abdominal GI/Abdominal exam: Present: normal bowel sounds, soft, no peritoneal signs. Absent: distended, tenderness - Extremities Exam Extremities exam: Present: warm, radial pulses palpable and symmetrical. Absent : calf tenderness, cyanotic, pedal edema - Neurological Exam Neurological exam: Present: altered. Absent: facial droop Additional comments: Unable to complete her assessment, patient unable to follow commands. Appears to be confused, unable to discern whether or not this is baseline. - Skin Skin exam: Present: dry, intact Internal Med - H&P Results - EKG Data EKG comments: 10/04/17 23:55 Atrial fibrillation RVR - Diagnostic Studies CT scan - head Status: image reviewed by me Additional comments: No acute intracranial abnormalities noted Chest x-ray Status: image reviewed by me Additional comments: No acute pulmonary process <Valentina Mccall - Last Filed: 10/06/17 07:51> Date of Encounter: 10/04/17 Time of Encounter: 23:30 Internal Medicine - H&P: HPI History of present illness: Mr. Abdul is a 82 year old male All Systems PM: A 10-system review of systems was performed and is negative for pertinent findings except as documented above in the HPI. - Constitutional Vitals: Temp Pulse Resp BP Pulse Ox 97.9 F 73 16 144/88 95 10/06/17 06:22 10/06/17 06:22 10/06/17 06:22 10/06/17 06:22 10/06/17 06:22 Internal Med - H&P Results - Labs CBC & Chem 7: 10/05/17 03:12 10/05/17 03:12 Labs: Urine 10/05/17 Range/Units 09:30 Urine Color Yellow (Yellow) Urine Clarity Clear (Clear) Urine pH 7.0 (5.0-8.0) pH Units Ur Specific [place] 1.018 (1.010-1.025) Urine Protein >=300 H (Neg-Trace) mg/dL Urine Glucose (UA) Normal (Normal) mg/dL - Impressions ITS Impressions Head CT 10/05/17 13:55 IMPRESSION: No acute intracranial abnormality. Findings were discussed with Eder Fitzpatrick of the [facility] at 2:28 pm on 10/05/2017. D/ / Nish Coffman MD / Nish Coffman MD Interpreting Provider: Nish Coffman MD - Attending Attestation Patient independently seen and examined. Case discussed with CLARY Hills, I agree with his documented findings, assessment, and plan.
[2017-10-05] MEDS ORDERED: D5% in Water 1,000 ML IVC PRN (00:08)
[2017-10-05] MEDS ORDERED: *HR* Dextrose 50 % in Water (Syg) 50 ML SYRINGE IVP PRN (00:08)
[2017-10-05] MEDS ORDERED: Dextrose Gel 15 GM PO PRN ×2 (00:08)
[2017-10-05] MEDS: levETIRAcetam 250 MG TABLET PO SCH ×3 (01:39→21:56)
[2017-10-05] MEDS: APIXABAN 2.5 MG TABLET PO SCH ×2 (01:39→09:31)
[2017-10-05 03:24] LABS: Basophils % 0.6 %; Eosinophils # 0.3 K/mcL (0.0-0.6); Eosinophils % 3.7 %; Hematocrit 35.7 % (37.5-50.1); Hemoglobin 11.5 g/dL (12.9-16.9); Immature Granulocytes % 0.3 % (0-4); Lymphocytes # 1.5 K/mcL (0.6-4.6); Lymphocytes % 21.7 %; Mean Corpuscular HGB Conc 32.2 g/dL (31.6-35.5); Mean Corpuscular Hemoglobin 28.3 pg (28.0-33.3); Mean Corpuscular Volume 87.9 fL (83.0-100.0); Mean Platelet Volume 9.7 fL (9.4-12.4); Monocytes # 0.8 K/mcL (0.0-1.3); Monocytes % 11.4 %; Neutrophils # 4.2 K/mcL (1.6-8.9); Platelet Count 206 K/mcL (140-400); Red Blood Count 4.06 M/mcL (4.19-5.50); Red Cell Distribution Width 13.5 % (11.5-14.5); Segmented Neutrophils % 62.3 %
[2017-10-05 03:43] LABS: BUN/Creatinine Ratio 13 (6-26); Blood Urea Nitrogen 11 mg/dL (8-26); Calcium 8.5 mg/dL (8.6-10.8); Carbon Dioxide 30 mEq/L (19-29); Chloride 102 mEq/L (98-109); Glucose 171 mg/dL (70-99); Osmolality,Calculated 293 (280-300); Potassium 3.5 mEq/L (3.5-4.5); Sodium 140 mEq/L (136-145); eGFR For African Americans > 60 (> 60); eGFR For Non-African Americans > 60 (> 60)
[2017-10-05] MEDS: Insulin LISPRO 300 UNITS/3 ML VIAL SQ SCH ×4 (07:50→21:56)
[2017-10-05] MEDS ORDERED: dilTIAZem HCl 100 MG in D5% in Water 50 ML IVC SCH (08:30)
--- NOTE | 2017-10-05 09:27 | Internal Med Progress Note ---
<Dinorah Wood - Last Filed: 10/05/17 14:54> Date of Encounter: 10/05/17 Time of Encounter: 09:25 - Assessment and plan (1) Atrial fibrillation with RVR Current Visit: Yes Status: Resolved Assessment and plan: patient came in with Afib RVR with rate in Low 100s. This morning, his HR was in 130s. Etilogy unclear at this time. consider non compliance with home meds in setting of altered mental status CXR done at [facility] showed chronic cardiomegaly with some bilateral interstitial opacities, possible edema. Plan: started cardizem gtt this morning, titrate to maintain HR below 100 increased dose of beta yoshi. continue Eliquis for now. 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 plan is have conversatoin with his regarding continuing anticoagulation and code status. currently not able to get a hold of the . (2) Change in mental status Current Visit: Yes Status: Acute Assessment and plan: change in mental status from baseline, according to notes. UDS positive for opiates- patient does take Chauvin at home. Head CT: no acute intracranial abnorality, encephalomalacia in the left temporal lobe. moderate small vessel disease in periventricular white matter. UA unremarkable Early afternoon, patient was showing preferential leftward gaze with weakness. There was concern for stroke, so stroke alert was called. Of note, patient is not a candidate for TPA due to being on Eliquis. telemonitoring with [facility] neurologist was therefore not done. However, CT head and MRI was ordered. Plan: check B12, folate, RPR consult to long term care social worker to help with placement. CT Head negative. MRI brain pending. Qualifiers: Altered mental status type: unspecified Qualified Code(s): R41.82 - Altered mental status, unspecified (3) Diabetes mellitus type 2 with complications, uncontrolled Current Visit: Yes Status: Acute Assessment and plan: continue basal insulin with low dose sliding scale diabetic diet. AMBER landis. Qualifiers: Diabetes mellitus long line teamster insulin use: without fdc use Qualified Code(s): E11.8 - Type 2 diabetes mellitus with unspecified complications; E11.65 - Type 2 diabetes mellitus with hyperglycemia; E11.65 - Type 2 diabetes mellitus with hyperglycemia; E11.65 - Type 2 diabetes mellitus with hyperglycemia; E11.65 - Type 2 diabetes mellitus with hyperglycemia (4) Hypertension Current Visit: No Status: Acute Assessment and plan: well controlled at this time. continue home meds. Qualifiers: Hypertension type: essential hypertension Qualified Code(s): I10 - Essential (primary) hypertension (5) DVT prophylaxis Current Visit: No Status: Acute Assessment and plan: continue ELiquis - Subjective Interval history: 82M evaluated at bedside. he is altered and cannot answer questions properly. he is a poor historian, and his baseline mental status is unknown. - Constitutional Vitals: Temp Pulse Resp BP Pulse Ox 97.5 F L 111 18 150/92 98 10/05/17 07:39 10/05/17 07:39 10/05/17 07:39 10/05/17 07:39 10/05/17 07:39 General appearance: Present: A&O X 0, pleasant, no acute distress - Head Head exam: Present: atraumatic, normocephalic - Respiratory Additional comments: decreased breath sounds - Cardiovascular Cardiovascular exam: Present: tachycardia - GI/Abdominal GI/Abdominal exam: Present: normal bowel sounds, soft. Absent: distended, tenderness - Extremities Exam Extremities exam: Absent: cyanotic, pedal edema - Neurological Exam Additional comments: poor gait, patient very weak. cannot answer questions appropriately. cannot follow commands . Internal Medicine: Result - Labs CBC & Chem 7: 10/05/17 03:12 10/05/17 03:12 Labs: Short CBC 10/05/17 Range/Units 03:12 WBC 6.8 (4.3-11.1) K/mcL Hgb 11.5 L (12.9-16.9) g/dL Hct 35.7 L (37.5-50.1) % Plt Count 206 (140-400) K/mcL Neutrophils # 4.2 (1.6-8.9) K/mcL BMP 10/05/17 03:12 Sodium 140 Potassium 3.5 Chloride 102 Carbon Dioxide 30 H BUN 11 Creatinine 0.88 Glucose 171 H Calcium 8.5 L Consult Discharge Plan - Plan Referrals: Wilberto Beasley MD [Primary Care Provider] - <Tre Amezcua H - Last Filed: 10/05/17 17:07> Date of Encounter: 10/05/17 - Constitutional Vitals: Temp Pulse Resp BP Pulse Ox 98.7 F 78 10 155/110 95 10/05/17 15:34 10/05/17 15:34 10/05/17 15:34 10/05/17 15:34 10/05/17 15:34 Internal Medicine: Result - Labs CBC & Chem 7: 10/05/17 03:12 10/05/17 03:12 Labs: Short CBC 10/05/17 Range/Units 03:12 WBC 6.8 (4.3-11.1) K/mcL Hgb 11.5 L (12.9-16.9) g/dL Hct 35.7 L (37.5-50.1) % Plt Count 206 (140-400) K/mcL Neutrophils # 4.2 (1.6-8.9) K/mcL BMP 10/05/17 03:12 Sodium 140 Potassium 3.5 Chloride 102 Carbon Dioxide 30 H BUN 11 Creatinine 0.88 Glucose 171 H Calcium 8.5 L Urine 10/05/17 Range/Units 09:30 Urine Color Yellow (Yellow) Urine Clarity Clear (Clear) Urine pH 7.0 (5.0-8.0) pH Units Ur Specific [place] 1.018 (1.010-1.025) Urine Protein >=300 H (Neg-Trace) mg/dL Urine Glucose (UA) Normal (Normal) mg/dL - Impressions Impressions Head CT 10/05/17 13:55 IMPRESSION: No acute intracranial abnormality. Findings were discussed with Eder Fitzpatrick of the [facility] at 2:28 pm on 10/05/2017. D/ / Nish Coffman MD / Nish Coffman MD Interpreting Provider: Nish Coffman MD - Attending Attestation Stroke alert called Not a candidate for TPA, (patient stopped his eloquent is about a week ago which was resumed this morning, unable to determine the last time he was seen normal. CT scan of the head was ordered an MRI without contrast will be ordered Neurology consult I examined this patient and my medical decision-making was reviewed with the Resident Physician. I agree with the documented findings, disposition and treatment plan as described except to the extent set forth below.
[2017-10-05] MEDS: Aspirin 81 MG TAB.CHEW PO SCH (09:31)
[2017-10-05] MEDS: Gabapentin 100 MG CAPSULE PO SCH ×3 (09:31→21:57)
[2017-10-05 09:44] LABS: Bilirubin,Urine Negative (Negative); Blood,Urine Moderate (Negative); Clarity,Urine Clear (Clear); Color,Urine Yellow (Yellow); Glucose,Urine (UA) Normal (Normal); Ketones,Urine Trace mg/dL (Negative); Leukocyte Esterase,Urine Negative (Negative); Nitrite,Urine Negative (Negative); Protein,Urine >=300 mg/dL (Neg-Trace); Specific Gravity,Urine 1.018 (1.010-1.025); Urobilinogen,Urine Normal (Normal)
[2017-10-05 09:46] LABS: Bacteria,Urine None Seen per hpf (None-Few); Hyaline Casts,Urine None Seen per lpf (None-Few); RBC,Urine 15-30 per hpf (0-3); Squamous Epithelial Cell,Urine Moderate per lpf (None-Few); WBC,Urine 0-3 per hpf (0-3)
[2017-10-05 11:58] LABS: Folate 14.7 ng/mL (7.0-31.4)
[2017-10-05] MEDS: *HR* Metoprolol 5 MG/5 ML VIAL IVP SCH (16:56)
[2017-10-05] MEDS: Insulin DETEMIR 100 UNIT/ML X5UNITS SQ SCH (16:57)
[2017-10-05] MEDS ORDERED: NON-FORMULARY MEDICATION 1 EACH EACH (Insulin Glargine [Lantus] 8 UNIT) SQ SCH (18:00)
--- NOTE | 2017-10-05 18:48 | Event Note ---
Date of Encounter: 10/05/17 Time of Encounter: 05:30 Spoke with patient's , Katelyn Abdul. She is the patient's POA. She stated that patient's code status has been DNRCC for a while now. She sated that she had prior discussions about code status, and he wishes to remain comfortable, and that she would like to respect his wishes. Patient's understands what a code status of DNRCC entails. Risks and benefits of stopping his Eliquis were explained to Katelyn, and she agrees that Eliquis should be stopped, as he is elderly, has fall risks, and has history of Hemorrhagic stroke. Consult to vp digital marketing social media and crm was made to help set up hospice upon discharge, which was done at the request of Katelyn. Since management of keeping him comfortable at this time would not change, morning labs, MRI of head were cancelled.
[2017-10-05] MEDS: risperiDONE 1 MG TABLET PO SCH (21:58)
[2017-10-05] MEDS: traZODone 50 MG TABLET PO SCH (21:59)
[2017-10-06] MEDS ORDERED: *HR* LORazepam 2 MG/ML VIAL IVP ONE (00:32)
[2017-10-06] MEDS: *HR* Metoprolol 5 MG/5 ML VIAL IVP SCH ×3 (00:38→12:44)
[2017-10-06] MEDS: Insulin LISPRO 300 UNITS/3 ML VIAL SQ SCH ×4 (08:56→21:00)
[2017-10-06] MEDS: levETIRAcetam 250 MG TABLET PO SCH ×2 (09:01→20:58)
[2017-10-06] MEDS: Aspirin 81 MG TAB.CHEW PO SCH (09:01)
[2017-10-06] MEDS: Gabapentin 100 MG CAPSULE PO SCH ×3 (09:01→20:58)
--- NOTE | 2017-10-06 11:21 | Palliative - Consult Note ---
Date of Encounter: 10/06/17 Time of Encounter: 10:50 - Assessment and Plan (1) Generalized pain Current Visit: Yes Status: Acute Assessment and plan: Has [place] at present. He took meds crushed this am. Will continue and transition to SL if needed. (2) Counseling regarding advanced care planning and goals of care Current Visit: Yes Status: Acute Assessment and plan: Met with pt's , Katelyn to discuss goals of care. She desires to transition to hospice care. Eloquis has been discontinued. Katelyn states that she is unable to take him home before r/t having the house exterminated. [place]oike with [facility], and because of social situation and extermination, pt will be admitted to hospice tomorrow morning and admitted to respite care. (3) Dementia Current Visit: No Status: Chronic Qualifiers: Dementia type: unspecified type Dementia behavioral disturbance: without behavioral disturbance Qualified Code(s): F03.90 - Unspecified dementia without behavioral disturbance (4) CVA (cerebrovascular accident) Current Visit: No Status: Acute Qualifiers: CVA mechanism: unspecified Qualified Code(s): I63.9 - Cerebral infarction, unspecified (5) Altered mental status Current Visit: No Status: Acute Qualifiers: Altered mental status type: unspecified Qualified Code(s): R41.82 - Altered mental status, unspecified Palliative-CN HPI - Data of Consult Requesting Physician: Derek Springer Primary Care Provider: Wilberto Beasley MD - Consult Narrative History of present illness: Mr. Abdul is a 82 year old male with a past medical history of arthritis, atrial fibrillation, cancer, CHF, COPD, coronary artery disease, CVA, diabetes, hypertension, who was admitted for change in mental status. 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 He was admitted with change mental status, afib, He has expressive aphasia, which is new from his baseline. Thursday states he was able to speak. He currently does awaken with stimulation, but can only tell me his first name. Mumbling speech, and cannot answer further questions. Does not follow commands. He is taking little po. is at bedside during my visit. States she had conversation with hospitalists last pm, and does not want him started back on anticoagulation. States she only wants him comfortable and desires "nature to take its course". States he has poor quality of life and has suffered a lot this past year. She already has [facility] in place. He appears comfortable and in no distress. Sleeping constantly unless stimulated. CC: Derek Springer Past Med Surg Social Fam HX - Past Medical History Medical history: arthritis, atrial fibrillation, cancer, CHF, COPD, coronary artery disease, CVA, dementia, diabetes, hyperlipidemia, hypertension, other Psychiatric history: no psych history - Past Surgical History Surgical History: cholecystectomy, knee replacement, orthopedic, other, prostatectomy, other - Social History Smoking Status: Never smoker Smokeless Tobacco Status: No Alcohol use: none Drug use: none Medications and Allergies Allopurinol [Zyloprim] 100 mg PO QAM 09/26/15 [History] Aspirin 81 mg PO QAM 09/26/15 [History] Tamsulosin [Flomax] 0.4 mg PO DAILY #30 capsule 09/29/15 [Rx] Atorvastatin [Lipitor] 40 mg PO HS 01/09/17 [History] Glimepiride [Amaryl] 4 mg PO DAILY 01/09/17 [History] LevETIRAcetam [Keppra] 500 mg PO BID 01/09/17 [History] Metoprolol [Lopressor] 25 mg PO BID 01/09/17 [History] Citalopram [CeleXA] 20 mg PO DAILY 05/26/17 [History] Gabapentin [Neurontin] 100 mg PO TID 05/26/17 [History] risperiDONE [RisperDAL] 2 mg PO HS 05/26/17 [History] DULoxetine [Cymbalta] 30 mg PO DAILY 06/28/17 [History] traZODone [TraZODone] 150 mg PO HS 06/28/17 [History] Lisinopril [Zestril] 2.5 mg PO BID #60 tab 07/02/17 [Rx] Apixaban [Eliquis] 2.5 mg PO BID 09/22/17 [History] HYDROcodone/Acet 5/325 mg [[place] 5-325 mg] 1 tab PO Q6H PRN 09/22/17 [History] Insulin Glargine [Lantus] 8 unit SQ QPM 09/22/17 [History] Insulin LISPRO [Humalog] 0 unit SQ QID 09/22/17 [History] predniSONE [PredniSONE] 5 mg PO DAILY 09/22/17 [History] Furosemide [Lasix] 20 mg PO DAILY 10/05/17 [History] 3 Allergy/AdvReac Type Severity Reaction Status Date / Time Sulfa (Sulfonamide Allergy Rash Verified 09/16/17 13:59 Antibiotics) morphine AdvReac Vomiting Verified 09/16/17 13:59 ROS unobtainable: due to mental status Palliative Care-Exam - Constitutional Vitals: Temp Pulse Resp BP Pulse Ox 98.2 F 91 18 138/93 98 10/06/17 11:03 10/06/17 11:03 10/06/17 11:03 10/06/17 11:03 10/06/17 11:03 General appearance: Present: no acute distress - Head Head Exam: Present: normal inspection, normocephalic - Eye Eye exam: Present: normal appearance, PERRL - Respiratory Respiratory exam: Present: decreased breath sounds, CTAB - Cardiovascular Cardiovascular exam: Present: irregular rhythm - GI/Abdominal Exam GI/Abdominal exam: Present: normal bowel sounds, soft - Extremities Exam Extremities exam: Present: normal capillary refill, normal inspection - Expanded Upper Extremities Exam Forearm wrist exam: Absent: pain with axial thumb loading - Neurological Exam Neurological exam: Present: alert Additional comments: Disoriented, can only tell me his first name. - Skin Skin exam: Present: dry, pallor, warm Internal Medicine - CN: Reslt - Labs CBC & Chem 7: 10/05/17 03:12 10/05/17 03:12 - Impressions Impressions Head CT 10/05/17 13:55 IMPRESSION: No acute intracranial abnormality. Findings were discussed with Eder Fitzpatrick of the [facility] at 2:28 pm on 10/05/2017. D/ / Nish Coffman MD / Nish Coffman MD Interpreting Provider: Nish Coffman MD Consult Discharge Plan - Plan Referrals: Wilberto Beasley MD [Primary Care Provider] - Palliative Quality Palliative Quality: Screen for Code Status: Yes, Screen for Goals of Care: Yes, Screen for Pain: Yes, If Pain Regimen Started, Initiate Bowel Regimen: Yes, Screen for Nausea/Vomitting: Yes Code Status: 10/04/17 23:34 Resuscitation Status: Active [RES] Routine Comment: Resuscitation Status: Full Code 10/05/17 17:37 DNR [Resuscitation Status: Active] [RES] Routine Comment: Resuscitation Status: DNR-Comfort Care
[2017-10-06] MEDS: Insulin DETEMIR 100 UNIT/ML X5UNITS SQ SCH (16:38)
--- NOTE | 2017-10-06 17:07 | Discharge Summary ---
Date of Encounter: 10/06/17 Time of Encounter: 11:00 - Discharge Medications Home Medications: Allopurinol [Zyloprim] 100 mg PO QAM 09/26/15 [History] Aspirin 81 mg PO QAM 09/26/15 [History] Tamsulosin [Flomax] 0.4 mg PO DAILY #30 capsule 09/29/15 [Rx] Atorvastatin [Lipitor] 40 mg PO HS 01/09/17 [History] Glimepiride [Amaryl] 4 mg PO DAILY 01/09/17 [History] LevETIRAcetam [Keppra] 500 mg PO BID 01/09/17 [History] Metoprolol [Lopressor] 25 mg PO BID 01/09/17 [History] Citalopram [CeleXA] 20 mg PO DAILY 05/26/17 [History] Gabapentin [Neurontin] 100 mg PO TID 05/26/17 [History] risperiDONE [RisperDAL] 2 mg PO HS 05/26/17 [History] DULoxetine [Cymbalta] 30 mg PO DAILY 06/28/17 [History] traZODone [TraZODone] 150 mg PO HS 06/28/17 [History] Lisinopril [Zestril] 2.5 mg PO BID #60 tab 07/02/17 [Rx] Apixaban [Eliquis] 2.5 mg PO BID 09/22/17 [History] HYDROcodone/Acet 5/325 mg [[place] 5-325 mg] 1 tab PO Q6H PRN 09/22/17 [History] Insulin Glargine [Lantus] 8 unit SQ QPM 09/22/17 [History] Insulin LISPRO [Humalog] 0 unit SQ QID 09/22/17 [History] predniSONE [PredniSONE] 5 mg PO DAILY 09/22/17 [History] Furosemide [Lasix] 20 mg PO DAILY 10/05/17 [History] Allergies/Adverse Reactions: 3 Allergy/AdvReac Type Severity Reaction Status Date / Time Sulfa (Sulfonamide Allergy Rash Verified 09/16/17 13:59 Antibiotics) morphine AdvReac Vomiting Verified 09/16/17 13:59 Procedures/tests Complete & Pending: Procedures Performed prior 72 hours Category Date Time Status CT stroke alert head wo con [CT] Stat Cat Scan 10/05/17 13:55 Completed Date of admission: 10/05/17 13:03 Primary care physician: Wilberto Beasley MD Consults: 10/05/17 00:09 Consult to Occupational Therapy [CONS] Routine Comment: Evaluate, develop and implement POC Reason for Consult: FAILURE TO THRIVE; ASSESS FUNCTIONAL CAPACITY Consult to Physical Therapy [CONS] Routine Comment: Evaluate, develop and implement POC Reason for Consult: FAILURE TO THRIVE; ASSESS FUNCTIONAL CAPACITY Consult to Channel Sales Manager [CONS] Routine Reason for SW Consult: FAILURE TO THRIVE; ASSESS FUNCTIONAL CAPACITY 10/05/17 13:55 Consult to Speech Therapy [CONS] Routine Comment: Evaluate, develop and implement POC Reason for Consult: stroke Call Completed: Yes 10/05/17 18:42 Consult to Channel Sales Manager [CONS] Routine Reason for SW Consult: DNRCC- his would like for him to be discharged on hospice. needs setup 10/06/17 10:29 Consult to Palliative Care [CONS] Routine Comment: Consulting Provider: Palliative Care Yesenia Reason for Consult: failure to thrive per request Call Completed: Yes - Patient Status Disposition: Hospice - Home - Discharge Instructions Follow Up With: Wilberto Beasley MD [Primary Care Provider] - Hospital course: Patient is an 82-year-old male with past medical history significant for atrial fibrillation, cancer, CHF, COPD, coronary artery disease, CVA, diabetes and hypertension who presented to the ER on 10/05/17 due to altered mental status changes. Per chart review, patient had been refusing to eat and drink in addition to getting out of bed. His home caregiver was concerned that this is a change from his baseline. It is reported that the patient is normally ambulatory and moderately verbal. There is no indication as to what his baseline mental status is. He had a recent CVA in 01/02 and another brain insult in 08.02. There is noted concern for some SOB and he was found to have afib RVR at [facility] as well as HTN. Patient was admitted for further observation and control of afib and for evaluation of functional status for possible placement. During patients hospital stay, his rate for age for fibrillation was controlled and Cardizem was discontinued. However, patient decided to declare himself a DNR CC and agrees. Patient and spouse declines any further medical management and palliative care has been consulted for hospice care. She will be discharged with home hospice. - Time Spent with Patient Total time spent providing and/or coordinating discharge services: Less than 30 minutes - Constitutional Vitals: Temp Pulse Resp BP Pulse Ox 97.9 F 92 14 138/90 95 10/06/17 14:44 10/06/17 14:44 10/06/17 14:44 10/06/17 14:44 10/06/17 14:44 General appearance: Present: A&O X 0, pleasant, no acute distress - Cardiovascular Cardiovascular exam: Present: RRR, +S1, +S2. Absent: diastolic murmur, gallop, rubs, systolic murmur
--- NOTE | 2017-10-06 17:08 | Physician Discharge Referral ---
Home Health/Hosp Referral Info Transfer to: Hospice - Respiratory Orders Smoking Cessation: Smoking cessation has been advised. For more information, call the [place] Tobacco Quit Line at 0-746-NPTA-NOW. - Transfer Medications Home Medications: Allopurinol [Zyloprim] 100 mg PO QAM 09/26/15 [History] Aspirin 81 mg PO QAM 09/26/15 [History] Tamsulosin [Flomax] 0.4 mg PO DAILY #30 capsule 09/29/15 [Rx] Atorvastatin [Lipitor] 40 mg PO HS 01/09/17 [History] Glimepiride [Amaryl] 4 mg PO DAILY 01/09/17 [History] LevETIRAcetam [Keppra] 500 mg PO BID 01/09/17 [History] Metoprolol [Lopressor] 25 mg PO BID 01/09/17 [History] Citalopram [CeleXA] 20 mg PO DAILY 05/26/17 [History] Gabapentin [Neurontin] 100 mg PO TID 05/26/17 [History] risperiDONE [RisperDAL] 2 mg PO HS 05/26/17 [History] DULoxetine [Cymbalta] 30 mg PO DAILY 06/28/17 [History] traZODone [TraZODone] 150 mg PO HS 06/28/17 [History] Lisinopril [Zestril] 2.5 mg PO BID #60 tab 07/02/17 [Rx] Apixaban [Eliquis] 2.5 mg PO BID 09/22/17 [History] HYDROcodone/Acet 5/325 mg [[place] 5-325 mg] 1 tab PO Q6H PRN 09/22/17 [History] Insulin Glargine [Lantus] 8 unit SQ QPM 09/22/17 [History] Insulin LISPRO [Humalog] 0 unit SQ QID 09/22/17 [History] predniSONE [PredniSONE] 5 mg PO DAILY 09/22/17 [History] Furosemide [Lasix] 20 mg PO DAILY 10/05/17 [History] Allergies/Adverse Reactions: 3 Allergy/AdvReac Type Severity Reaction Status Date / Time Sulfa (Sulfonamide Allergy Rash Verified 09/16/17 13:59 Antibiotics) morphine AdvReac Vomiting Verified 09/16/17 13:59 Certification: Further, I certify that my clinical findings support that this patient is homebound (i.e. absences from home require considerable and taxing effort and are for medical reasons or islam services or infrequently or short duration when for other reasons) because: Homebound Reason: Patient requires assistance of a person or device to safely leave home Attestation: My signature below is to certify that this patient is under my care and that I, or nurse practitioner, or a physician's nurses medical assistants phlebotomists working with me, has a face-to -face encounter with this patient.
[2017-10-06] MEDS: risperiDONE 1 MG TABLET PO SCH (20:58)
[2017-10-06] MEDS: traZODone 50 MG TABLET PO SCH (20:59)
[2017-10-07 07:28] VITALS: BP 166/100
[2017-10-07] MEDS: Insulin LISPRO 300 UNITS/3 ML VIAL SQ SCH (08:30)
[2017-10-07] MEDS: levETIRAcetam 250 MG TABLET PO SCH (08:30)
[2017-10-07] MEDS: Aspirin 81 MG TAB.CHEW PO SCH (08:30)
[2017-10-07] MEDS: Gabapentin 100 MG CAPSULE PO SCH (08:31)
== END 2017-10-07 11:06 | disposition hospice, home (50) | DRG 310 ==
LOC: 2NENU → SUATTDRO 10-05 13:03
PROVIDERS: ADMIT Internal Medicine; ATTEND Hospitalist

== ENCOUNTER 2017-10-07 09:12 | Inpatient (IN) ==
[2017-10-07] MEDS ORDERED: *HR* HYDROcodone/Acet 5/325 mg TABLET PO PRN (09:44)
[2017-10-07] MEDS ORDERED: Dextrose Gel 15 GM PO PRN ×2 (09:52)
--- NOTE | 2017-10-07 10:01 | Palliative - Consult Note ---
Date of Encounter: 10/07/17 Time of Encounter: 09:50 - Assessment and Plan (1) Generalized pain Status: Acute Assessment and plan: Continue [place] as taken per home. Monitor (2) CVA (cerebrovascular accident) Status: Acute Assessment and plan: Eloquis has been discontinued. No further aggressive treatment for prevention of stroke. Qualifiers: CVA mechanism: unspecified Qualified Code(s): I63.9 - Cerebral infarction, unspecified (3) Atrial fibrillation with RVR Status: Resolved (4) Dementia Status: Chronic Qualifiers: Dementia type: unspecified type Dementia behavioral disturbance: without behavioral disturbance Qualified Code(s): F03.90 - Unspecified dementia without behavioral disturbance (5) Chronic kidney disease, stage III (moderate) Status: Chronic (6) Altered mental status Status: Acute Qualifiers: Altered mental status type: unspecified Qualified Code(s): R41.82 - Altered mental status, unspecified Palliative-CN HPI - Data of Consult Consult date: 10/07/17 Requesting Physician: Erik Tyler MD - Consult Narrative History of present illness: Mr. Abdul is a 82 year old male with a past medical history of arthritis, atrial fibrillation, cancer, CHF, COPD, coronary artery disease, CVA, diabetes, hypertension, who was admitted for change in mental status. 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 He was admitted with change mental status, afib, He has expressive aphasia, which is new from his baseline. Thursday states he was able to speak. He currently does awaken with stimulation, but can only tell me his first name. At times, speech is not understandable. Does not follow commands. He is taking some po , and can take meds crushed in applesauce. Anticoagulation therapy has been discontinued for prevention of further strokes , and desire pt to be comfortable. She desired hospice care, and does not want him to return to the hospital. Later today however, pt house is being exterminated and house will need to be empty for several hours. He will be admitted to respite care, with the anticipation of returning to home or Thursday. CC: Erik Tyler MD Past Med Surg Social Fam HX - Past Medical History Medical history: arthritis, atrial fibrillation, cancer, CHF, COPD, coronary artery disease, CVA, dementia, diabetes, hyperlipidemia, hypertension, other Psychiatric history: no psych history - Past Surgical History Surgical History: cholecystectomy, knee replacement, orthopedic, other, prostatectomy, other - Social History Smoking Status: Never smoker Smokeless Tobacco Status: No Alcohol use: none Drug use: none Medications and Allergies Allopurinol [Zyloprim] 100 mg PO QAM 09/26/15 [History] Aspirin 81 mg PO QAM 09/26/15 [History] Tamsulosin [Flomax] 0.4 mg PO DAILY #30 capsule 09/29/15 [Rx] Atorvastatin [Lipitor] 40 mg PO HS 01/09/17 [History] Glimepiride [Amaryl] 4 mg PO DAILY 01/09/17 [History] LevETIRAcetam [Keppra] 500 mg PO BID 01/09/17 [History] Metoprolol [Lopressor] 25 mg PO BID 01/09/17 [History] Citalopram [CeleXA] 20 mg PO DAILY 05/26/17 [History] Gabapentin [Neurontin] 100 mg PO TID 05/26/17 [History] risperiDONE [RisperDAL] 2 mg PO HS 05/26/17 [History] DULoxetine [Cymbalta] 30 mg PO DAILY 06/28/17 [History] traZODone [TraZODone] 150 mg PO HS 06/28/17 [History] Lisinopril [Zestril] 2.5 mg PO BID #60 tab 07/02/17 [Rx] Apixaban [Eliquis] 2.5 mg PO BID 09/22/17 [History] HYDROcodone/Acet 5/325 mg [[place] 5-325 mg] 1 tab PO Q6H PRN 09/22/17 [History] Insulin Glargine [Lantus] 8 unit SQ QPM 09/22/17 [History] Insulin LISPRO [Humalog] 0 unit SQ QID 09/22/17 [History] predniSONE [PredniSONE] 5 mg PO DAILY 09/22/17 [History] Furosemide [Lasix] 20 mg PO DAILY 10/05/17 [History] 3 Allergy/AdvReac Type Severity Reaction Status Date / Time Sulfa (Sulfonamide Allergy Rash Verified 09/16/17 13:59 Antibiotics) morphine AdvReac Vomiting Verified 09/16/17 13:59 ROS unobtainable: due to mental status Palliative Care-Exam - Constitutional General appearance: Present: no acute distress - Head Head Exam: Present: normal inspection, normocephalic - Eye Eye exam: Present: normal appearance, PERRL - Respiratory Respiratory exam: Present: decreased breath sounds, CTAB Additional comments: Shallow inspiratory effort - Cardiovascular Cardiovascular exam: Present: irregular rhythm, tachycardia - GI/Abdominal Exam GI/Abdominal exam: Present: normal bowel sounds, soft - Catheter Type: Urethral (Chery) - Neurological Exam Neurological exam: Present: alert Additional comments: Does not follow commands. Can tell me his first name. Some speech difficult to understand. - Skin Skin exam: Present: dry, pallor, warm Palliative Quality Palliative Quality: Screen for Code Status: Yes, Screen for Goals of Care: Yes, Screen for Pain: Yes, If Pain Regimen Started, Initiate Bowel Regimen: Yes, Screen for Nausea/Vomitting: Yes
[2017-10-07] MEDS ORDERED: Haloperidol Oral Conc 10 MG/5 ML UDC PO PRN (11:03)
[2017-10-07] MEDS ORDERED: Morphine Oral CONC 5 MG/0.25 ML ORAL.SYG PO PRN (11:04)
[2017-10-07] MEDS: Insulin LISPRO 300 UNITS/3 ML VIAL SQ SCH ×2 (12:27→17:47)
--- NOTE | 2017-10-07 12:56 | Palliative Progress Note ---
Date of Encounter: 10/07/17 - Assessment and plan (1) Generalized pain Current Visit: No Status: Acute (2) CVA (cerebrovascular accident) Current Visit: No Status: Acute Qualifiers: CVA mechanism: unspecified Qualified Code(s): I63.9 - Cerebral infarction, unspecified (3) Atrial fibrillation with RVR Current Visit: No Status: Resolved (4) Dementia Current Visit: No Status: Chronic Qualifiers: Dementia type: unspecified type Dementia behavioral disturbance: without behavioral disturbance Qualified Code(s): F03.90 - Unspecified dementia without behavioral disturbance (5) Chronic kidney disease, stage III (moderate) Current Visit: No Status: Chronic (6) Altered mental status Current Visit: No Status: Acute Qualifiers: Altered mental status type: unspecified Qualified Code(s): R41.82 - Altered mental status, unspecified - Time Spent With Patient Total time spent is greater than 50% in coordination of care (as documented) at patient's floor/unit and/or counseling patient: Palliative Quality Palliative Quality: Screen for Code Status: Yes, Screen for Goals of Care: Yes, Screen for Pain: Yes, If Pain Regimen Started, Initiate Bowel Regimen: Yes, Screen for Nausea/Vomitting: Yes
[2017-10-07] MEDS: *HR* LORazepam Oral Conc 2 MG/ML PO PRN (15:23)
[2017-10-07] MEDS: Gabapentin 100 MG CAPSULE PO SCH ×2 (15:25→21:01)
[2017-10-07] MEDS: levETIRAcetam 250 MG TABLET PO SCH (17:41)
[2017-10-07] MEDS: Sennosides/Docusate Sodium TABLET PO SCH (21:01)
[2017-10-07] MEDS: traZODone 50 MG TABLET PO SCH (21:01)
[2017-10-07] MEDS: Insulin DETEMIR 100 UNIT/ML X5UNITS SQ SCH (21:01)
[2017-10-08] MEDS: levETIRAcetam 250 MG TABLET PO SCH ×2 (05:19→17:01)
[2017-10-08] MEDS: Aspirin 81 MG TAB.CHEW PO SCH (08:14)
[2017-10-08] MEDS: Gabapentin 100 MG CAPSULE PO SCH ×2 (08:14→17:00)
[2017-10-08] MEDS: Sennosides/Docusate Sodium TABLET PO SCH (08:15)
[2017-10-08] MEDS: Insulin LISPRO 300 UNITS/3 ML VIAL SQ SCH ×3 (08:15→17:01)
[2017-10-08] MEDS: *HR* LORazepam Oral Conc 2 MG/ML PO PRN (14:04)
[2017-10-08] MEDS: Insulin DETEMIR 100 UNIT/ML X5UNITS SQ SCH (17:01)
--- NOTE | 2017-10-08 17:44 | Palliative Progress Note ---
Date of Encounter: 10/08/17 Time of Encounter: 17:40 - Assessment and plan (1) Generalized pain Current Visit: No Status: Acute Assessment and plan: Continue current regimen of [place] and Roxanol if needed for breakthrough. Utilized x1 last 24 hours (2) CVA (cerebrovascular accident) Current Visit: No Status: Acute Qualifiers: CVA mechanism: unspecified Qualified Code(s): I63.9 - Cerebral infarction, unspecified (3) Atrial fibrillation with RVR Current Visit: No Status: Resolved (4) Dementia Current Visit: No Status: Chronic Qualifiers: Dementia type: unspecified type Dementia behavioral disturbance: without behavioral disturbance Qualified Code(s): F03.90 - Unspecified dementia without behavioral disturbance (5) Chronic kidney disease, stage III (moderate) Current Visit: No Status: Chronic (6) Altered mental status Current Visit: No Status: Acute Qualifiers: Altered mental status type: unspecified Qualified Code(s): R41.82 - Altered mental status, unspecified - Time Spent With Patient Total time spent is greater than 50% in coordination of care (as documented) at patient's floor/unit and/or counseling patient: 25 - 35 minutes - Subjective Interval history: Patient resting quietly with eyes closed. Open eyes with assessment. Appears comfortable. No family at bedside. - Constitutional Vitals: Abnormal lab results POC Glucose 239 (58-89) H 10/08/17 16:13 General appearance: Present: no acute distress - Respiratory Respiratory exam: Present: decreased breath sounds, CTAB Additional comments: Shallow respirations - Cardiovascular Cardiovascular exam: Present: irregular rhythm, tachycardia - GI/Abdominal GI/Abdominal exam: Present: normal bowel sounds, soft - Additional comments: Depends in place - Extremities Exam Extremities exam: Present: normal capillary refill, normal inspection - Neurological Exam Neurological exam: Present: alert Additional comments: Pleasantly confused. Not following commands. Non-verbal during my assessment - Skin Skin exam: Present: dry, warm Palliative Quality Palliative Quality: Screen for Code Status: Yes, Screen for Goals of Care: Yes, Screen for Pain: Yes, If Pain Regimen Started, Initiate Bowel Regimen: Yes, Screen for Nausea/Vomitting: Yes Code Status: 10/07/17 12:51 DNR [Resuscitation Status: Active] [RES] Routine Comment: Resuscitation Status: DNR-Comfort Care - Labs Labs: Laboratory Results - last 24 hr 10/07/17 10/07/17 10/08/17 16:26 21:04 07:17 POC Glucose 241 H 169 H 154 H 10/08/17 16:13 POC Glucose 239 H
[2017-10-09] MEDS: *HR* LORazepam Oral Conc 2 MG/ML PO PRN (01:19)
[2017-10-09] MEDS: Sennosides/Docusate Sodium TABLET PO SCH ×2 (01:20→09:58)
[2017-10-09] MEDS: traZODone 50 MG TABLET PO SCH (01:20)
[2017-10-09] MEDS: Gabapentin 100 MG CAPSULE PO SCH ×2 (01:21→09:57)
[2017-10-09] MEDS: risperiDONE 1 MG TABLET PO SCH ×2 (01:21→09:57)
[2017-10-09] MEDS: levETIRAcetam 250 MG TABLET PO SCH (05:40)
--- NOTE | 2017-10-09 07:44 | Event Note ---
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 Start: 10/07/2017 Hospice benefit. In: +90 days Palliative performance scale: 20-30% History: History of hemorrhagic CVA December of this year, now with new onset aphasia and decrease in mental status. It is consistent with new stroke. The patient is not a definite downward decline this is complicated by his history of atrial fibrillation CHF and COPD. She does not wish to have any further aggressive care and does not wish to return to the hospital therefore I find These findings support a life expectancy of 6 months or less. I attest that I have compose the above narrative based on my review of the patient's medical records, and or on my examination of the patient. Erik Tyler M.D. Associate biomedical equipment specialist. [facility]
--- NOTE | 2017-10-09 08:48 | Discharge Summary ---
<Armin Perez - Last Filed: 10/09/17 08:46> Date of Encounter: 10/09/17 Time of Encounter: 08:46 - Discharge Diagnosis (1) Altered mental status Priority: Primary Status: Acute Comments: Patient is nonverbal and not following commands. Qualifiers: Altered mental status type: unspecified Qualified Code(s): R41.82 - Altered mental status, unspecified (2) CVA (cerebrovascular accident) Priority: Secondary Status: Acute Comments: Anticoagulation discontinued. No further prophylaxis of stroke. Qualifiers: CVA mechanism: unspecified Qualified Code(s): I63.9 - Cerebral infarction, unspecified (3) Chronic kidney disease, stage III (moderate) Priority: Secondary Status: Chronic (4) Dementia Priority: Secondary Status: Chronic Comments: Patient is not following commands and is nonverbal Qualifiers: Dementia type: unspecified type Dementia behavioral disturbance: without behavioral disturbance Qualified Code(s): F03.90 - Unspecified dementia without behavioral disturbance (5) Generalized pain Priority: Secondary Status: Acute Comments: Continue norco 5/325 po q6hr Morphine 5 mg po q4hr as needed - Discharge Medications Prescriptions: LORazepam Oral Conc [Ativan Oral Conc] 1 mg PO Q6HR #30 mls Promethazine [Phenergan] 25 mg RC Q6HR #10 supp.rect Aspirin 81 mg PO QAM #10 tablet Citalopram [CeleXA] 20 mg PO DAILY #10 tablet Gabapentin [Neurontin] 100 mg PO TID #30 capsule HYDROcodone/Acet 5/325 mg [[place] 5-325 mg] 1 tab PO Q6H PRN #40 tablet PRN Reason: Pain Insulin Glargine [Lantus] 8 unit SQ QPM 10 Days mls Insulin LISPRO [Humalog] 0 unit SQ QID 10 Days #1 bottle LevETIRAcetam [Keppra] 500 mg PO BID #20 tablet Lisinopril [Zestril] 2.5 mg PO BID #60 tab Morphine Oral CONC [Roxanol] 0.25 ml SL Q4H PRN #30 ml PRN Reason: sob or pain risperiDONE [RisperDAL] 2 mg PO HS #10 tablet Home Medications: Allopurinol [Zyloprim] 100 mg PO QAM 09/26/15 [History] Tamsulosin [Flomax] 0.4 mg PO DAILY #30 capsule 09/29/15 [Rx] Glimepiride [Amaryl] 4 mg PO DAILY 01/09/17 [History] Metoprolol [Lopressor] 25 mg PO BID 01/09/17 [History] Aspirin 81 mg PO QAM #10 tablet 10/09/17 [Rx] Citalopram [CeleXA] 20 mg PO DAILY #10 tablet 10/09/17 [Rx] Gabapentin [Neurontin] 100 mg PO TID #30 capsule 10/09/17 [Rx] HYDROcodone/Acet 5/325 mg [[place] 5-325 mg] 1 tab PO Q6H PRN #40 tablet 10/09/17 [Rx] Insulin Glargine [Lantus] 8 unit SQ QPM 10 Days mls 10/09/17 [Rx] Insulin LISPRO [Humalog] 0 unit SQ QID 10 Days #1 bottle 10/09/17 [Rx] LORazepam Oral Conc [Ativan Oral Conc] 1 mg PO Q6HR #30 mls 10/09/17 [Rx] LevETIRAcetam [Keppra] 500 mg PO BID #20 tablet 10/09/17 [Rx] Lisinopril [Zestril] 2.5 mg PO BID #60 tab 10/09/17 [Rx] Morphine Oral CONC [Roxanol] 0.25 ml SL Q4H PRN #30 ml 10/09/17 [Rx] Promethazine [Phenergan] 25 mg RC Q6HR #10 supp.rect 10/09/17 [Rx] risperiDONE [RisperDAL] 2 mg PO HS #10 tablet 10/09/17 [Rx] Allergies/Adverse Reactions: 3 Allergy/AdvReac Type Severity Reaction Status Date / Time Sulfa (Sulfonamide Allergy Rash Verified 09/16/17 13:59 Antibiotics) morphine AdvReac Vomiting Verified 09/16/17 13:59 Labs on day of discharge: Labs from last 24 hours 10/08/17 10/08/17 16:13 07:17 POC Glucose 239 H 154 H Internal Medicine - DS: Prov Date of admission: 10/07/17 11:24 Admitting clinician: Irasema Valdez Attending physician on admission: Erik Tyler Consults: 10/07/17 09:38 Consult to Palliative Care [CONS] Routine Comment: Consulting Provider: Palliative Care Yesenia Reason for Consult: Respite pt Time Notified: 09:40 Call Completed: No Attending physician on discharge: Erki Tyler Discharging clinician: Armin Perez Anticipated date of discharge: 10/09/17 - Patient Status Disposition: Hospice - Home Condition: Fair Functional capacity at discharge: bed bound Overall status at discharge: patient is not back to baseline - Discharge Instructions Follow Up With: NONE,PCP [Primary Care Provider] - - Diet and Activity Activity: resume usual activities as tolerated Diet: other (Diet as tolerated) - Hospital Course Hospital course: Mr. Abdul is an 82 year old male who presented for respite care with mental status changes, afib, and new expressive aphasia. The patient's home was being exterminated when he was being discharged for home hospice from the hospital on 10/07/17, so he was admitted for respite instead. The patient has a PMH of arthritis, afib, cancer, CHF, COPD, CAD, CVA, DM, and HTN. Hemorrhagic stroke occurred in December with additional strokes in Jul. There were no significant changes through his hospital stay. He remained pleasantly confused and nonverbal. Patient CODE STATUS is DNR-CC. - Time Spent with Patient Total time spent providing and/or coordinating discharge services: Less than 30 minutes Internal Medicine - DS: Exam - Constitutional Vitals: Vital Signs Temp Pulse Resp BP Pulse Ox 10/08/17 20:33 99 F 113 17 154/92 92 Intake and Output 10/08/17 10/09/17 10/09/17 23:59 07:59 15:59 Intake Total 110 / 110 Balance 110 / 110 Intake: Oral 110 / 110 Other: Meal Dinner Percent of Meal Consumed 15% # Voids 1 # Urine Diapers 1 1 Blood Glucose* 151 166 General appearance: obese - Head Head exam: Present: atraumatic, normal inspection - ENT ENT exam: Present: mucous membranes dry - Respiratory Respiratory exam: Present: decreased breath sounds, CTAB Additional comments: shallow respirations - Cardiovascular Cardiovascular exam: Present: irregular rhythm, +S1, +S2, tachycardia - GI/Abdominal GI/Abdominal exam: Present: normal bowel sounds, soft - Extremities Exam Extremities exam: Present: normal inspection - Neurological Exam Neurological exam: Absent: alert, altered Additional comments: Not following commands. Non-verbal. <Erik Tyler - Last Filed: 10/09/17 14:09> Date of Encounter: 10/09/17 Labs on day of discharge: Labs from last 24 hours 10/09/17 10/08/17 10/08/17 08:14 16:13 11:13 POC Glucose 166 H 239 H 213 H Internal Medicine - DS: Prov Date of admission: 10/07/17 11:24 Primary care physician: PCP NONE Consults: 10/07/17 09:38 Consult to Palliative Care [CONS] Routine Comment: Consulting Provider: Palliative Care Yesenia Reason for Consult: Respite pt Time Notified: 09:40 Call Completed: No - Hospital Course Hospital course: Mr. Abdul is a 82 year old male - Time Spent with Patient Total time spent providing and/or coordinating discharge services: Internal Medicine - DS: Exam - Constitutional Vitals: Vital Signs Temp Pulse Resp BP Pulse Ox 10/09/17 09:23 100.0 F H 158 26 173/91 97 10/08/17 20:33 99 F 113 17 154/92 92 Intake and Output 10/08/17 10/09/17 10/09/17 23:59 07:59 15:59 Intake Total 110 / 110 Balance 110 / 110 Intake: Oral 110 / 110 Other: Meal Dinner Percent of Meal Consumed 15% # Voids 1 # Urine Diapers 1 1 Blood Glucose* 151 220 - Attending Attestation I examined this patient and my medical decision-making was reviewed with the Resident Physician. I agree with the documented findings, disposition and treatment plan as described except to the extent set forth below. Patient will be discharged home today with hospice. Scripts were done and hospice provided transportation the patient home. GI was also done prior to discharge.
[2017-10-09 09:24] VITALS: BP 173/91
[2017-10-09] MEDS: Aspirin 81 MG TAB.CHEW PO SCH (09:57)
[2017-10-09] MEDS: Insulin LISPRO 300 UNITS/3 ML VIAL SQ SCH (09:57)
== END 2017-10-09 12:22 | disposition hospice, home (50) | DRG 948 ==
LOC: 2ANU 11:24
PROVIDERS: ADMIT Family Medicine Hospice and Palliative Medicine; ATTEND Family Medicine Hospice and Palliative Medicine